=== PATIENT | female | born 1985 | race Caucasian/White ===

== ENCOUNTER 2021-04-08 15:12 | Outpatient (CLI) | payer OTHER, SELFPAY ==
--- NOTE | ~2021-04-08 | US_ITS ---
EXAMINATION: US thyroid DATE: 04/08/2021 15:34 INDICATION: Thyroid disorder. TECHNIQUE: Multiple ultrasound images of the thyroid were obtained. COMPARISON: Ultrasound 10/19/2017 FINDINGS: The right thyroid lobe measures 5.1 x 1.7 x 1.5 cm. The left thyroid lobe measures 4.7 x 1.6 x 1.4 c m. There is normal echotexture and echogenicity throughout the thyroid gland. No discrete nodules id entified. Normal vascular flow is present. IMPRESSION: 1. Normal thyroid. Reviewed, dictated and finalized at location A. IMPRESSION: 1. Normal thyroid.
== END 2021-04-08 15:13 | disposition home or self-care (01) ==
PROVIDERS: PCP Physician Assistant; Visit Provider Physician Assistant
DX: Z86.39 Personal history of other endocrine, nutritional and metabolic disease (principal)
CPT/HCPCS: 76536

== ENCOUNTER 2021-04-14 08:34 | Emergency (ER) | payer OTHER, SELFPAY ==
--- NOTE | ~2021-04-14 | CT_ITS ---
EXAMINATION: CT abdomen pelvis w con DATE: 04/14/2021 11:36 INDICATION: Right lower quadrant abdominal pain. TECHNIQUE: Computed tomography (CT) of the abdomen and pelvis was performed with 100 mL Omnipaque 350 intravenous contrast. Automated exposure control and iterative reconstruction technique were employe d. The dose-length product was 502.52 mGy-cm. COMPARISON: None. FINDINGS: The visualized portions of the lung bases are clear without pneumonia or pleural effusion. The heart size is normal. No pleural effusion. The liver, gallbladder, spleen, pancreas, adrenal glan ds, and left kidney are normal. There are cysts in right kidney measuring up to 5 mm. There is wall t hickening throughout the colon, consistent with colitis. The appendix is normal. There are no patholo gically enlarged lymph nodes. There is no free intraperitoneal fluid. There is mild thoracolumbar spo ndylosis. IMPRESSION: 1. Pancolitis. Reviewed, dictated and finalized at location A. IMPRESSION: 1. Pancolitis.
[2021-04-14 09:50] VITALS: BP 117/66; PULSE 95; RESP 14; TEMP 36.3; O2SAT 100
[2021-04-14 10:28] LABS: Basophils Percent Auto 0.3 % (0.2-1.2); Eosinophils Percent Auto 0.3 % (0-4.4); Hematocrit 39.1 % (37.0-47.0); Hemoglobin 12.7 g/dL (12.0-15.0); Immature Granulocyte Absolute 0.03 K/mm3 (0.00-0.031); Immature Granulocyte Percent A 0.3 % (0-0.5); Lymphocytes Absolute Auto 2.79 K/mm3 (0.9-3.2); Lymphocytes Percent Auto 24.2 % (18.3-44.2); Mean Corpuscular HGB Conc 32.5 g/dl (32-36); Mean Corpuscular Hemoglobin 27.9 pg (26-34); Mean Corpuscular Volume 85.9 fl (80-100); Mean Platelet Volume 9.6 fl (7.4-10.4); Monocytes Absolute Auto 0.7 K/mm3 (0.1-0.6); Monocytes Percent Auto 6.1 % (2.6-8.5); Neutrophils Absolute Auto 7.9 K/mm3 (1.3-6.7); Neutrophils Percent Auto 68.8 % (45.5-73.1); Platelet Count Result 472 k/mm3 (150-375); Red Blood Count 4.55 M/mm3 (4.2-5.4); Red Cell Distribution Width 13.1 % (11.5-14.5); White Blood Count 11.5 K/mm3 (4.5-10.0)
[2021-04-14 10:29] LABS: Add Urine Microscopic? YES; Appearance Urine Clear (Clear); Bilirubin Urine Negative (Negative); Blood Urine Negative (Negative); Color Urine Straw (Yellow); Glucose Urine UA Negative (Negative); Ketones Urine Trace mg/dL (Negative); Leukocyte Esterase Ur Negative LEU/UL (Negative); Mucus Urine Rare /lpf; Nitrate Urine Negative (Negative); Protein Urine Negative (Negative); RBC Urine 0-2 /hpf (0-2); Squamous Epithelial Cell Urine Rare /hpf (Few); Urobilinogen Urine Negative mg/dL (<2.0); WBC Urine 0-3 /hpf
[2021-04-14 10:39] LABS: Specific Grav Ur 1.003 (1.001-1.035)
[2021-04-14 10:46] LABS: Alanine Aminotransferase 16 U/L (4-35); Albumin Level 4.4 g/dL (3.5-5.1); Alkaline Phosphatase 64 U/L (38-126); Anion Gap 8 mmol/L (8-16); Aspartate Amino Transferase 17 U/L (14-36); Bilirubin,Total 0.4 mg/dL (0.2-1.3); Blood Urea Nitrogen 3 mg/dL (7-17); Calcium 9.4 mg/dL (8.4-10.2); Carbon Dioxide 28 mmol/L (22-30); Chloride 100 mmol/L (98-107); Estimated CRCL calculation 106 ml/min; Estimated Glomerular Filt Rate > 60; Glucose 87 mg/dL (65-110); Lipase 91 U/L (23-300); Potassium 3.5 mmol/L (3.4-5.0); Sodium 136 mmol/L (137-145)
[2021-04-14] MEDS: SODIUM CHLORIDE 0.9% IV 1,000 ML 999 ML IV CONT ×2 (12:05→13:12)
[2021-04-14] MEDS: ONDANSETRON INJ 4 MG/2 ML VIAL IV PUSH (12:05)
[2021-04-14] MEDS: fentaNYL CITRATE INJ (*CRX) 100 MCG/2 ML VIAL 50 MCG IV PUSH ×2 (12:05→13:12)
--- NOTE | 2021-04-14 12:36 | ED.ABDPAIN ---
HPI - Abdominal Pain General Chief Complaint: Abdominal Pain Stated Complaint: abd pain, ulcerative colitis Time Seen by Provider: 04/14/21 11:06 History of Present Illness HPI narrative: Patient presents with abdominal pain for the history of ulcerative colitis and occasionally will have flares however this episodes appears to be worse than her priors. Pains and present for the past several days. Described as a cramping sensation start around bellybutton and now is radiating to her right lower quadrant. She was concerned that she was having appendicitis and wanted to come in for evaluation. She reports nausea but no vomiting shortness pain when having to have bowel movements. She denies any urinary symptoms. Related Data Allergies Allergy/AdvReac Type Severity Reaction Status Date / Time No Known Allergies Allergy Verified 04/14/21 11:08 Review of Systems Review of Systems: CONSTITUTIONAL: Denies fever, chills, or sweats. EYES: Denies visual changes, redness, or discharge. ENT: Denies rhinorrhea, congestion, sore throat, or otalgia. CARDIOVASCULAR: Denies chest pain, palpitations, or edema. RESPIRATORY: Denies cough or dyspnea. GASTROINTESTINAL: Denies vomiting GENITOURINARY: Denies dysuria or hematuria. SKIN: Denies rash or itching. MUSCULOSKELETAL: Denies back pain, joint pain, or myalgia. NEUROLOGIC: Denies headache, numbness, dizziness, or weakness. PSYCHIATRIC: Denies anxiety or depression. All systems reviewed & are unremarkable except as noted in HPI and below PMFSH Social History Social History Gender identity (if verbalized by the patient): Female Exam Narrative: GENERAL: Well-appearing, well-nourished, and in no acute distress. HEAD: Normocephalic, atraumatic. EYES: PERRLA and EOMI. ENT: Nares clear, no rhinorrhea or epistaxis. Mucous membranes moist. NECK: Supple. No masses. No JVD CHEST: Clear to auscultation. No respiratory distress. No wheezes rales or rhonchi HEART: Regular rate and rhythm. No murmur heard. Normal peripheral pulses. ABDOMEN: Moderate tenderness in the lower abdomen no rebound or guarding, nondistended, normal active bowel sounds. EXTREMITIES: Normal range of motion. No edema. SKIN: Warm, dry, no rash. NEURO: No focal deficits. Alert and oriented x3. PSYCH: Normal mood and affect. Course Reevaluation(s) Reevaluation #1: pt feeling improved, labs and imaging reviewed with patient Date: 04/14/21 Time: 12:36 Vital Signs Vital signs: Vital Signs Temperature 36.3 C L 04/14/21 09:50 Pulse Rate 95 04/14/21 09:50 Respiratory Rate 14 04/14/21 09:50 Blood Pressure 117/66 04/14/21 09:50 Pulse Oximetry 100 04/14/21 09:50 Temperature 36.3 C L 04/14/21 09:50 Pulse Rate 84 04/14/21 14:27 Respiratory Rate 16 04/14/21 14:27 Blood Pressure 136/84 04/14/21 14:27 Pulse Oximetry 98 04/14/21 14:27 MDM - Abdominal Pain MDM Narrative Medical decision making narrative: Patient reports chronic abdominal pain however today's episode was different than her priors and she was concerned for appendicitis. Patient looks clinically well labs and imaging were ordered and notable for pancolitis and mild elevation in WBCs. There not appear to be evidence of fistulas, abscess, acute surgical process. Patient treated supportively in the ER with some relief of her symptoms. With a reassuring work-up and improvement in symptoms patient is appropriate for outpatient supportive therapies. She was offered steroids and narcotic therapies but declined as she has to take care of her kids and steroids has not helped her in the past. Recommend patient contact her GI doctor and she said she had a virtual appointment on Sunday for discuss further management options. Return precautions given Lab Data Result diagrams: 04/14/21 10:13 04/14/21 10:13 Labs: Lab Results 04/14/21 04/14/21 04/14/21 Range/Units 10:
--- NOTE | 2021-04-14 12:42 | PC.NURSE ---
called lab and talked to Sola elizabeth on a C reactive Prot and ESR at 1243
[2021-04-14 13:26] LABS: CRP 4.2 mg/dL (<1.0)
[2021-04-14 14:23] LABS: Erythrocyte Sedimentation Rate 28 mm/hr (0-20)
[2021-04-14 14:27] VITALS: BP 136/84; PULSE 84; RESP 16; O2SAT 98
== END 2021-04-14 14:28 | disposition home or self-care (01) ==
PROVIDERS: Emergency Medicine; Emergency Provider Emergency Medicine; PCP Physician Assistant
DX: K52.9 Noninfective gastroenteritis and colitis, unspecified (principal); Z87.19 Personal history of other diseases of the digestive system
CPT/HCPCS: 36415; 74177; 80053; 81001; 81025; 83690; 85025; 85652; 86140; 96361; 96374; 96375; 96376; 99284; J2405; J3010; J7030; Q9967

== ENCOUNTER 2021-04-26 12:34 | Outpatient (CLI) | payer OTHER, SELFPAY ==
[2021-04-30 00:19] LABS: NIL 0.01 IU/mL; Quantiferon TB Plus, 1T NEGATIVE (NEGATIVE); TB1-NIL 0.02 IU/mL; TB2-NIL 0.02 IU/mL
== END 2021-04-26 12:35 | disposition home or self-care (01) ==
PROVIDERS: PCP Physician Assistant; Visit Provider Nurse Practitioner Adult Health
DX: Z11.1 Encounter for screening for respiratory tuberculosis (principal)
CPT/HCPCS: 36415; 86480

== ENCOUNTER 2024-10-10 13:17 | Outpatient (CLI) | payer OTHER, SELFPAY ==
--- OUTSIDE RECORDS SUMMARY | 2024-10-10 13:28 | XMS_ITS | Data Portability ---
Author Organization CIELO Gayla LOPEZ Address [address] [place] [address] Assessment No assessment recorded. Plan of Treatment Reminders Order Date Submit Date Provider Last Modified By Organization Details Last Modified Time Details Appointments None recorded. Lab CMP, serum or plasma 2017 018 [facility] [address], [address], [place], [address], 8 16:20:23 inflammat ory bowel disease Ab panel, serum 2017 018 [facility], [address], [place], [address], 8 16:20:24 ferritin, serum or plasma 2017 018 [facility], [facility] sy[facility] [address], [address], [place], [address], 8 16:20:25 iron + total iron-bind ing capacity (TIBC), serum 2017 018 [facility], [facility] [address], [address], [place], [address], 8 16:20:24 CBC w/ auto diff 2017 018 [facility], [facility] [address], [address], [place], [address], 8 16:20:23 urinalysi s, dipstick 2018 019 [email or web address] In-Office Order, Internal Use Only DO Not Attach Compendium DO Not Attach Compendium, Do Not Delete/merge, [id number] 9 13:30:26 urinalysi s, complete 2018 019 EVER BLANKENSHIPWALESKA, Tana Mccormick, [address], [place], [address], 9 06:09:36 culture, urine 2018 019 EVER JAVIERMAYUR, Tana Mccormick, [address], [place], [address], 9 06:09:37 CMP, serum or plasma 2020 021 EVER BLANKENSHIPWALESKA, Tana Mccormick, [address], [place], [address], 08:19:51 C reactive protein, QN, serum or plasma 2020 021 EVER JAVIERMAYUR, Tana Mccormick, [address], [place], [address], 08:19:53 iron + total iron-bind ing capacity (TIBC), serum 2020 EVER JAVIERMAYUR, Tana Mccormick, [address], [place], [address], 08:19:52 ferritin, serum or plasma 2020 EVER BLANKENSHIPWALESKA, Tana Mccormick, [address], [place], [address], 08:19:53 CBC w/ auto diff 2020 [facility], [address] [facility], [address], [place], [address], 08:19:51 Referral gastroent erologist referral 2017 natasha Jett MD, [address] [facility], [place], [address], 9 12:29:50 gastroent erologist referral - Please contact patient to schedule an appointme nt, Thank you. Omayra Austin 2020 [facility], [address], [address], [place], [address], 16:50:25 general surgeon referral - Dr. Santos for colorecta l surgery consult 2020 [facility], [address], [address], [place], [address], 12:41:29 Procedures None recorded. Surgeries None recorded. Imaging None recorded. Medication Orders azithromy daniel 250 mg tablet 2017 018 [facility][id number], [address] [place] [address], [id number], 9 11:34:06 Medrol (Aaron) 4 mg tablets in a dose pack 2017 018 [facility] #[id number], [address] [facility] [address] [place] [address], [id number], 11:24:54 Levsin 0.125 mg tablet 2017 018 [facility] #55803, [address] [facility] [address] [place] [address], [id number], 9 11:35:10 Bactrim DS 800 mg-160 mg tablet 2018 019 [email or web address] [facility] #74959, [address], [id number], 9 11:22:45 cefdinir 300 mg capsule 2018 019 [facility] #03181, [address], [id number], 1 11:24:42 Medrol (Aaron) 4 mg tablets in a dose pack 2019 020 [facility] #65172, [address], [id number], 1 11:24:54 cefdinir 300 mg capsule 2019 020 [facility] #96396, [address], [id number], 1 11:24:42 Patient TargetsNo targets recorded. Patient InstructionsNo instructions recorded. Reason for Referral Wire Weaver Referral for Chronic diarrhea r/o IBD, chronic diarrhea, hematochezia Referring Physician: Arlyn Sanches [facility], Encounter Date: 04/23/2018 Wire Weaver Referral for Ulcerative colitis Please contact patient to schedule an appointment, Thank you. Omayra Austin Referring Physician: Arlyn Sanches [facility], Encounter Date: 06/06/2021 General Surgeon Referral for Ulcerative colitis Dr. Santos for colorectal surgery consult Referring Physician: Arlyn Sanches [facility], Encounter Date: 06/06/2021 Results Created Date Observation Date Name Description Value Unit Range Abnormal Flag Note LastModifiedBy Organization Detail LastModifiedTime 04/23/20 18 04/23/2018 CBC w/ auto diff WBC 7.0 x10e3 /uL 3.4-10 .8 Not Available [facility] ([facility] [place] [facility]) [address] [facility], [place], [address], 04/25/2018 16:20:23 04/23/20 18 04/23/2018 CBC w/ auto diff RBC 4.29 x10e6 /uL 3.77-5 .28 Not Available [facility] ([facility]) [address] [place], [address], 04/25/2018 16:20:23 04/23/20 18 04/23/2018 CBC w/ auto diff hemoglobin 9.5 g/dL 11.1-1 5.9 below low normal Not Available [facility] ([facility]) [address] [place], [address], 04/25/2018 16:20:23 04/23/20 18 04/23/2018 CBC w/ auto diff hematocrit 30.5 % 34.0-4 6.6 below low normal Not Available [facility] ([facility]) [address] [facility], [place], [address], 04/25/2018 16:20:23 04/23/20 18 04/23/2018 CBC w/ auto diff MCV 71 fL 79-97 below low normal Not Available [facility] ([facility]) [address] [place], [address], 04/25/2018 16:20:23 04/23/20 18 04/23/2018 CBC w/ auto diff MCH 22.1 pg 26.6-3 3.0 below low normal Not Available [facility] ([facility]) [address] [place], [address], 04/25/2018 16:20:23 04/23/20 18 04/23/2018 CBC w/ auto diff MCHC 31.1 g/dL 31.5-3 5.7 below low normal Not Available [facility] ([facility]) [address] [place], [address], 04/25/2018 16:20:23 04/23/20 18 04/23/2018 CBC w/ auto diff RDW 15.9 % 12.3-1 5.4 above high normal Not Available [facility] ([facility]) [address] [facility], [place], [address], 04/25/2018 16:20:23 04/23/20 18 04/23/2018 CBC w/ auto diff platelets 525 x10e3 /uL 150-37 9 above high normal Not Available [facility] ([facility]) [address] [facility], [place], [address], 04/25/2018 16:20:23 04/23/20 18 04/23/2018 CBC w/ auto diff neutrophils 60 % not estab. Not Available [facility] ([facility]) [address] [facility], [place], [address], 04/25/2018 16:20:23 04/23/20 18 04/23/2018 CBC w/ auto diff lymphs 31 % not estab. Not Available [facility] ([facility]) [address] [facility], [place], [address], 04/25/2018 16:20:23 04/23/20 18 04/23/2018 CBC w/ auto diff monocytes 8 % not estab. Not Available [facility] ([facility]) [address] [facility], [place], [address], 04/25/2018 16:20:23 04/23/20 18 04/23/2018 CBC w/ auto diff eos 1 % not estab. Not Available [facility] ([facility]) [address] [facility], [place], [address], 04/25/2018 16:20:23 04/23/20 18 04/23/2018 CBC w/ auto diff basos 0 % not estab. Not Available [facility] ([facility]) [address] [facility], [place], [address], 04/25/2018 16:20:23 04/23/20 18 04/23/2018 CBC w/ auto diff immature cells REGASIFICATION PLANT OPERATOR Not Available [facility] ([facility]) [address] [place], [address], 04/25/2018 16:20:23 04/23/20 18 04/23/2018 CBC w/ auto diff neutrophils (absolute) 4.2 x10e3 /uL 1.4-7. 0 Not Available [facility] ([facility]) [address] [place], [address], 04/25/2018 16:20:23 04/23/20 18 04/23/2018 CBC w/ auto diff lymphs (absolute) 2.1 x10e3 /uL 0.7-3. 1 Not Available [facility] ([facility]) [address] [place], [address], 04/25/2018 16:20:23 04/23/20 18 04/23/2018 CBC w/ auto diff monocytes(ab solute) 0.6 x10e3 /uL 0.1-0. 9 Not Available [facility] ([facility]) [address] [place], [address], 04/25/2018 16:20:23 04/23/20 18 04/23/2018 CBC w/ auto diff eos (absolute) 0.1 x10e3 /uL 0.0-0. 4 Not Available [facility] ([facility]) [address] [place], [address], 04/25/2018 16:20:23 04/23/20 18 04/23/2018 CBC w/ auto diff baso (absolute) 0.0 x10e3 /uL 0.0-0. 2 Not Available [facility] ([facility]) [address] [place], [address], 04/25/2018 16:20:23 04/23/20 18 04/23/2018 CBC w/ auto diff immature granulocytes 0 % not estab. Not Available [facility] ([facility]) [address] [place], [address], 04/25/2018 16:20:23 04/23/20 18 04/23/2018 CBC w/ auto diff immature grans (abs) 0.0 x10e3 /uL 0.0-0. 1 Not Available [facility] ([facility]) [address] [place], [address], 04/25/2018 16:20:23 04/23/20 18 04/23/2018 CBC w/ auto diff NRBC REGASIFICATION PLANT OPERATOR Not Available [facility] ([facility]) [address] [place], [address], 04/25/2018 16:20:23 04/23/20 18 04/23/2018 CBC w/ auto diff hematology comments: REGASIFICATION PLANT OPERATOR Not Available [facility] ([facility]) [address] [place], [address], 04/25/2018 16:20:23 04/23/20 18 04/24/2018 CMP, serum or plasm a glucose 87 mg/dL 65-99 Not Available [facility] ([facility]) [address] [place], [address], 04/25/2018 16:20:23 04/23/20 18 04/24/2018 CMP, serum or plasm a BUN 5 mg/dL 6-20 below low normal Not Available [facility] ([facility]) [address] [place], [address], 04/25/2018 16:20:23 04/23/20 18 04/24/2018 CMP, serum or plasm a creatinine 0.63 mg/dL 0.57-1 .00 Not Available [facility] ([facility]) [address] [place], [address], 04/25/2018 16:20:23 04/23/20 18 04/24/2018 CMP, serum or plasm a eGFR if nonafricn AM 119 mL/mi n/1.7 3 >59 Not Available [facility] ([facility]) [address] [place], [address], 04/25/2018 16:20:23 04/23/20 18 04/24/2018 CMP, serum or plasm a eGFR if africn AM 137 mL/mi n/1.7 3 >59 Not Available [facility] ([facility]) [address] [place], [address], 04/25/2018 16:20:23 04/23/20 18 04/24/2018 CMP, serum or plasm a BUN/creatini ne ratio 8 9-23 below low normal Not Available [facility] ([facility]) [address] [place], [address], 04/25/2018 16:20:23 04/23/20 18 04/24/2018 CMP, serum or plasm a sodium 138 mmol/ L 134-14 4 Not Available [facility] ([facility]) [address] [place], [address], 04/25/2018 16:20:23 04/23/20 18 04/24/2018 CMP, serum or plasm a potassium 4.2 mmol/ L 3.5-5. 2 Not Available [facility] ([facility]) [address] [place], [address], 04/25/2018 16:20:23 04/23/20 18 04/24/2018 CMP, serum or plasm a chloride 103 mmol/ L 96-106 Not Available [facility] ([facility]) [address] [place], [address], 04/25/2018 16:20:23 04/23/20 18 04/24/2018 CMP, serum or plasm a carbon dioxide, total 23 mmol/ L 20-29 Not Available [facility] ([facility]) [address] [place], [address], 04/25/2018 16:20:23 04/23/20 18 04/24/2018 CMP, serum or plasm a calcium 9.2 mg/dL 8.7-10 .2 Not Available [facility] ([facility]) [address] [place], [address], 04/25/2018 16:20:23 04/23/20 18 04/24/2018 CMP, serum or plasm a protein, total 7.3 g/dL 6.0-8. 5 Not Available [facility] ([facility]) [address] [place], [address], 04/25/2018 16:20:23 04/23/20 18 04/24/2018 CMP, serum or plasm a albumin 4.1 g/dL 3.5-5. 5 Not Available [facility] ([facility]) [address] [place], [address], 04/25/2018 16:20:23 04/23/20 18 04/24/2018 CMP, serum or plasm a globulin, total 3.2 g/dL 1.5-4. 5 Not Available [facility] ([facility]) [address] [place], [address], 04/25/2018 16:20:23 04/23/20 18 04/24/2018 CMP, serum or plasm a A/G ratio 1.3 1.2-2. 2 Not Available [facility] ([facility]) [address] [place], [address], 04/25/2018 16:20:23 04/23/20 18 04/24/2018 CMP, serum or plasm a bilirubin, total <0.2 mg/dL 0.0-1. 2 Not Available [facility] ([facility]) [address] [place], [address], 04/25/2018 16:20:23 04/23/20 18 04/24/2018 CMP, serum or plasm a alkaline phosphatase 101 IU/L 39-117 Not Available [facility] ([facility]) [address] [place], [address], 04/25/2018 16:20:23 04/23/20 18 04/24/2018 CMP, serum or plasm a AST (SGOT) 7 IU/L 0-40 Not Available [facility] ([facility]) [address] [place], [address], 04/25/2018 16:20:23 04/23/20 18 04/24/2018 CMP, serum or plasm a ALT (SGPT) 14 IU/L 0-32 Not Available [facility] ([facility]) [address] [place], [address], 04/25/2018 16:20:23 04/23/20 18 04/25/2018 infla mmato ry bowel disea se Ab panel , serum wendy 3 units 0-50 Negat ran <45 Equiv ocal 45 - 50 Posit ran >50 Not Available [facility] ([facility]) [address] [place], [address], 04/25/2018 16:20:24 04/23/20 18 04/25/2018 infla mmato ry bowel disea se Ab panel , serum acca 7 units 0-90 Negat ran <80 Equiv ocal 80 - 90 Posit ran >90 Not Available [facility] ([facility]) [address] [place], [address], 04/25/2018 16:20:24 04/23/20 18 04/25/2018 infla mmato ry bowel disea se Ab panel , serum alca 18 units 0-60 Negat ran <55 Equiv ocal 55 - 60 Posit ran >60 Not Available [facility] ([facility]) [address] [place], [address], 04/25/2018 16:20:24 04/23/20 18 04/25/2018 infla mmato ry bowel disea se Ab panel , serum amca 35 units 0-100 Negat ran < 90 Equiv ocal 90 - 100 Posit ran >100 This test was devel oped and its perfo rmanc e barby cteri stics deter mined by [facility]. It has not been clear ed or appro matias by the Food and Drug Admin istra tion. The FDA has deter mined that such clear ance or appro aleksandar is not geovanny vasquez. Not Available [facility] ([facility]) [address] [place], [address], 04/25/2018 16:20:24 04/23/20 18 04/25/2018 infla mmato ry bowel disea se Ab panel , serum atypical panca Negati ve negati ve Not Available [facility] ([facility]) [address] [place], [address], 04/25/2018 16:20:24 04/23/20 18 04/25/2018 infla mmato ry bowel disea se Ab panel , serum comments Comfort Bower rn is not sugge stive of Infla mmato ry Bowel Disea se Not Available [facility] ([facility]) [address] [facility], [place], [address], 04/25/2018 16:20:24 04/23/20 18 04/24/2018 iron + total iron- destin ng capac ity (TIBC ), serum iron bind.cap.(TI BC) 401 ug/dL 250-45 0 Not Available [facility] ([facility]) [address] [place], [address], 04/25/2018 16:20:24 04/23/20 18 04/24/2018 iron + total iron- destin ng capac ity (TIBC ), serum UIBC 385 ug/dL 131-42 5 Not Available [facility] ([facility]) [address] [place], [address], 04/25/2018 16:20:24 04/23/20 18 04/24/2018 iron + total iron- destin ng capac ity (TIBC ), serum iron 16 ug/dL 27-159 below low normal Not Available [facility] ([facility]) [address] [facility], [place], [address], 04/25/2018 16:20:24 04/23/20 18 04/24/2018 iron + total iron- destin ng capac ity (TIBC ), serum iron saturation 4 % 15-55 alert low Not Available [facility] ([facility]) [address] [facility], [place], [address], 04/25/2018 16:20:24 04/23/20 18 04/24/2018 senthil tin, serum or plasm a ferritin, serum 9 NG/mL 15-150 below low normal Not Available [facility] ([facility]) [address] [facility], [place], [address], 04/25/2018 16:20:25 05/08/20 18 05/08/2018 surgi miah patho logy study [facility] pathology Premi er Patho logy Depar tment of Patho logy [address] [facility] [place] [address] Phone : [phone] Fax: Patho logy Repor t Name: JAUN HARP, MANJU LOWE Speci men #: [id number] Age: [birth year] (Age: 33) Locat ion: [facility] OP Sex: F Proce dure Date: Hospi lala #: [id number] Date Recei matias: Date Repor leo: Provi sofiya: CRISTINA EN A SCHMI DT Posto perat ran Diagn osis: Desce nding colon polyp Gross Descr iptio n: The first speci men is recei matias in a forma patsy-f illed conta iner label ed with the patie nt's name, Manju harp, date of and duod enal biops ies and consi sts of two piece s of soft light medina tissu e rangi ng in size from 0.1 to 0.2 cm in great est dimen alberto. The speci men is submi tted entir samantha in a singl e casse tte label ed A. The secon d speci men is recei matias in a forma patsy-f illed conta iner label ed with the berenice nt's name, Manju harp, date of and rand om colon biops ies and consi sts of five piece s of soft light medina tissu e rangi ng in size from less than 0.1 to 0.2 cm in [facility] est [facility] alberto. The speci men is submi tted entir samantha in a singl e casse tte label ed B. The third speci men is recei matias in a forma patsy-f illed conta iner label ed with the patirosalina nt's name, Manju harp, date of and desc endin g colon polyp and consi sts of one piece of soft light medina tissu e measu ring 0.2 cm in [facility] est [facility] alberto. The speci men is submi tted entir samantha in a singl e casse tte label ed C. CK Micro scopi c Descr iptio n: Micro scopi c exami natio n is perfo rmed and the findi ngs suppo rt the above final diagn osis. FINAL PATHO LOGIC DIAGN OSIS: A. DUODE NUM; BIOPS IES: -SMAL L BOWEL MUCOS A WITHI N SONG L LIMIT S -PRES ERVED VILLO US ARCHI TECTU RE -NO INCRE ASED INTRA EPITH ELIAL LYMPH OCYTE S B. COLON ; RANDO M BIOPS IES: -COLO LOLA MUCOS A WITH PROMI NENT LYMPH OID AGGRE IBARRA C. COLON , DESCE NDING , POLYP ; BIOPS Y: -FRAG MENTS OF INFLA MMATO RY POLYP JUDY F HUGHE S Patho logis t ifh/ 18 El ectro nical ly Alexandrea d Out * Not Available [facility] ([facility]) [address] [facility], [place], [address], 05/09/2018 10:32:01 04/03/20 19 04/04/2019 urina lysis , compl ete specific gravity 1.016 1.005- 1.030 Not Available [facility] ([facility]) [address] [place], [address], 04/05/2019 06:09:36 04/03/2004/04/2019 urina lysis , compl ete pH 5.5 5.0-7. 5 Not Available [facility] ([facility]) [address] [facility], [place], [address], 04/05/2019 06:09:36 04/03/2004/04/2019 urina lysis , compl ete urine-color Yellow yellow Not Available [facility] ([facility]) [address] [place], [address], 04/05/2019 06:09:36 04/03/2004/04/2019 urina lysis , compl ete appearance Clear clear Not Available [facility] ([facility]) [address] [place], [address], 04/05/2019 06:09:36 04/03/2004/04/2019 urina lysis , compl ete WBC esterase Negati ve negati ve Not Available [facility] ([facility]) [address] [place], [address], 04/05/2019 06:09:36 04/03/2004/04/2019 urina lysis , compl ete protein Negati ve negati ve/tra ce Not Available [facility] ([facility]) [address] [place], [address], 04/05/2019 06:09:36 04/03/2004/04/2019 urina lysis , compl ete glucose Negati ve negati ve Not Available [facility] ([facility]) [address] [place], [address], 04/05/2019 06:09:36 04/03/2004/04/2019 urina lysis , compl ete ketones Negati ve negati ve Not Available [facility] ([facility]) [address] [place], [address], 04/05/2019 06:09:36 04/03/2004/04/2019 urina lysis , compl ete occult blood Trace negati ve abnormal Not Available [facility] ([facility]) [address] [place], [address], 04/05/2019 06:09:36 04/03/2004/04/2019 urina lysis , compl ete bilirubin Negati ve negati ve Not Available [facility] ([facility]) [address] [place], [address], 04/05/2019 06:09:36 04/03/2004/04/2019 urina lysis , compl ete urobilinogen ,semi-qn 0.2 mg/dL 0.2-1. 0 Not Available [facility] ([facility]) [address] [place], [address], 04/05/2019 06:09:36 04/03/2004/04/2019 urina lysis , compl ete nitrite, urine Negati ve negati ve Not Available [facility] ([facility]) [address] [place], [address], 04/05/2019 06:09:36 04/03/2004/04/2019 urina lysis , compl ete microscopic examination See below: Micro scopi c was indic ated and was perfo rmed. Not Available [facility] ([facility]) [address] [place], [address], 04/05/2019 06:09:36 04/03/2004/04/2019 urina lysis , compl ete WBC 0-5 /hpf 0 - 5 Not Available [facility] ([facility]) [address] [place], [address], 04/05/2019 06:09:36 04/03/2004/04/2019 urina lysis , compl ete RBC 0-2 /hpf 0 - 2 Not Available [facility] ([facility]) [address], [place], [address], 04/05/2019 06:09:36 04/03/2004/04/2019 urina lysis , compl ete epithelial cells (non renal) 0-10 /hpf 0 - 10 Not Available [facility] ([facility]) [address] [facility], [place], [address], 04/05/2019 06:09:36 04/03/2004/04/2019 urina lysis , compl ete epithelial cells (renal) REGASIFICATION PLANT OPERATOR Not Available [facility] ([facility]) [address] [facility], [place], [address], 04/05/2019 06:09:36 04/03/2004/04/2019 urina lysis , compl ete casts Presen t /lpf none seen abnormal Not Available [facility] ([facility]) [address] [facility], [place], [address], 04/05/2019 06:09:36 04/03/2004/04/2019 urina lysis , compl ete cast type Hyalin e casts n/a Not Available [facility] ([facility]) [address] [facility], [place], [address], 04/05/2019 06:09:36 04/03/2004/04/2019 urina lysis , compl ete crystals REGASIFICATION PLANT OPERATOR Not Available [facility] ([facility]) [address] [place], [address], 04/05/2019 06:09:36 04/03/2004/04/2019 urina lysis , compl ete crystal type REGASIFICATION PLANT OPERATOR Not Available [facility] ([facility]) [address] [facility], [place], [address], 04/05/2019 06:09:36 04/03/20 19 04/04/2019 urina lysis , compl ete mucus threads Presen t not estab. Not Available [facility] ([facility]) [address] [facility], [place], [address], 04/05/2019 06:09:36 04/03/20 19 04/04/2019 urina lysis , compl ete bacteria Few none seen/f ew Not Available [facility] ([facility]) [address] [facility], [place], [address], 04/05/2019 06:09:36 04/03/20 19 04/04/2019 urina lysis , compl ete yeast REGASIFICATION PLANT OPERATOR Not Available [facility] ([facility]) [address] [facility], [place], [address], 04/05/2019 06:09:36 04/03/20 19 04/04/2019 urina lysis , compl ete trichomonas REGASIFICATION PLANT OPERATOR Not Available [facility] ([facility]) [address] [facility], [place], [address], 04/05/2019 06:09:36 04/03/2004/04/2019 urina lysis , compl ete comment REGASIFICATION PLANT OPERATOR Not Available [facility] [facility] [address] [facility], [place], [address], 04/05/2019 06:09:36 04/03/2004/04/2019 urina lysis , compl ete microscopic examination REGASIFICATION PLANT OPERATOR Not Available [facility] ([facility]) [address] [facility], [place], [address], 04/05/2019 06:09:36 04/03/2004/04/2019 cultu re, urine urine culture, routine Final report Not Available [facility] ([facility]) [address] [facility], [place], [address], 04/05/2019 06:09:37 04/03/20 19 04/04/2019 cultu re, urine result 1 Commen t Cultu re shows less than 10,00 0 colon y formi ng units of bacte marce per danie liter of urine . This colon y count is not gener ally consi dered to be clini david lesliei dequan russo Not Available [facility] ([facility]) [address] [facility], [place], [address], 04/05/2019 06:09:37 04/03/2004/03/2019 urina lysis , dipst ick Leukocytes Negati ve Not Available In-Office Order Internal Use Only DO Not Attach Compendium DO Not Attach Compendium, Do Not Delete/merge, [id number] 04/03/2019 11:49:32 04/03/2004/03/2019 urina lysis , dipst ick Nitrite negati ve Not Available In-Office Order Internal Use Only DO Not Attach Compendium DO Not Attach Compendium, Do Not Delete/merge, 04/03/2019 11:49:32 04/03/2004/03/2019 urina lysis , dipst ick Urobilinogen .2 Not Available In-Of fice Order Internal Use Only DO Not Attach Compendium DO Not Attach Compendium, Do Not Delete/merge, [id number] 04/03/2019 11:49:32 04/03/2004/03/2019 urina lysis , dipst ick Protein Negati ve Not Available In-Office Order Internal Use Only DO Not Attach Compendium DO Not Attach Compendium, Do Not Delete/merge, [id number] 04/03/2019 11:49:32 04/03/2004/03/2019 urina lysis , dipst ick pH 6.5 Not Available In-Office Order Internal Use Only DO Not Attach Compendium DO Not Attach Compendium, Do Not Delete/merge, [id number] 04/03/2019 11:49:32 04/03/2004/03/2019 urina lysis , dipst ick Blood Hemoly zed: Trace Not Available In-Office Order Internal Use Only DO Not Attach Compendium DO Not Attach Compendium, Do Not Delete/merge, [id number] 04/03/2019 11:49:32 04/03/2004/03/2019 urina lysis , dipst ick Specific [place] 1.025 Not Available In-Off ice Order Internal Use Only DO Not Attach Compendium DO Not Attach Compendium, Do Not Delete/merge, [id number] 04/03/2019 11:49:32 04/03/2004/03/2019 urina lysis , dipst ick Ketone Negati ve Not Available In-Office Order Internal Use Only DO Not Attach Compendium DO Not Attach Compendium, Do Not Delete/merge, [id number] 04/03/2019 11:49:32 04/03/2004/03/2019 urina lysis , dipst ick Bilirubin Negati ve Not Available In-Office Order Internal Use Only DO Not Attach Compendium DO Not Attach Compendium, Do Not Delete/merge, 04/03/2019 11:49:32 04/03/2004/03/2019 urina lysis , dipst ick Glucose Negati ve Not Available In-Office Order Internal Use Only DO Not Attach Compendium DO Not Attach Compendium, Do Not Delete/merge, [id number] 04/03/2019 11:49:32 04/03/2004/03/2019 urina lysis , dipst ick Appearance Clear Not Available In-Offi ce Order Internal Use Only DO Not Attach Compendium DO Not Attach Compendium, Do Not Delete/merge, 04/03/2019 11:49:32 04/03/2004/03/2019 urina lysis , dipst ick Color Yellow Not Available In-Office Order Internal Use Only DO Not Attach Compendium DO Not Attach Compendium, Do Not Delete/merge, [id number] 04/03/2019 11:49:32 04/18/2004/19/2021 TSH REFLE X TO T4F TSH 1.450 uIU/m L 0.450- 4.500 normal Not Available [facility] ([facility]) [address] [facility], [place], [address], 04/19/2021 08:18:23 04/18/2004/19/2021 THYRO ID PEROX IDASE (TPO) AB thyroid peroxidase (tpo) Ab 17 IU/mL 0-34 normal Not Available [facility] ([facility]) [address] [facility], [place], [address], 04/19/2021 08:18:24 06/06/20 21 06/07/2021 CBC WITH DIFFE RENTI AL/PL ATELE T WBC 7.2 x10e3 /uL 3.4-10 .8 Not Available [facility] ([facility]) [address] [facility], [place], [address], 06/07/2021 08:19:51 06/06/20 21 06/07/2021 CBC WITH DIFFE RENTI AL/PL ATELE T RBC 4.06 x10e6 /uL 3.77-5 .28 Not Available [facility] ([facility]) [address] [place], [address], 06/07/2021 08:19:51 06/06/20 21 06/07/2021 CBC WITH DIFFE RENTI AL/PL ATELE T hemoglobin 11.2 g/dL 11.1-1 5.9 Not Available [facility] ([facility]) [address] [place], [address], 06/07/2021 08:19:51 06/06/2006/07/2021 CBC WITH DIFFE RENTI AL/PL ATELE T hematocrit 34.7 % 34.0-4 6.6 Not Available [facility] ([facility]) [address] [place], [address], 06/07/2021 08:19:51 06/06/20 21 06/07/2021 CBC WITH DIFFE RENTI AL/PL ATELE T MCV 86 fL 79-97 Not Available [facility] ([facility]) [address] [place], [address], 06/07/2021 08:19:51 06/06/20 21 06/07/2021 CBC WITH DIFFE RENTI AL/PL ATELE T MCH 27.6 pg 26.6-3 3.0 Not Available [facility] ([facility]) [address] [place], [address], 06/07/2021 08:19:51 06/06/20 21 06/07/2021 CBC WITH DIFFE RENTI AL/PL ATELE T MCHC 32.3 g/dL 31.5-3 5.7 Not Available [facility] ([facility]) [address] [facility], [place], [address], 06/07/2021 08:19:51 06/06/20 21 06/07/2021 CBC WITH DIFFE RENTI AL/PL ATELE T RDW 13.2 % 11.7-1 5.4 Not Available [facility] ([facility]) [address] [facility], [place], [address], 06/07/2021 08:19:51 06/06/20 21 06/07/2021 CBC WITH DIFFE RENTI AL/PL ATELE T platelets 649 x10e3 /uL 150-45 0 above high normal Not Available [facility] ([facility]) [address] [facility], [place], [address], 06/07/2021 08:19:51 06/06/20 21 06/07/2021 CBC WITH DIFFE RENTI AL/PL ATELE T neutrophils 37 % not estab. Not Available [facility] ([facility]) [address] [facility], [place], [address], 06/07/2021 08:19:51 06/06/20 21 06/07/2021 CBC WITH DIFFE RENTI AL/PL ATELE T lymphs 44 % not estab. Not Available [facility] ([facility]) [address] [place], [address], 06/07/2021 08:19:51 06/06/20 21 06/07/2021 CBC WITH DIFFE RENTI AL/PL ATELE T monocytes 16 % not estab. Not Available [facility] ([facility]) [address] [facility], [place], [address], 06/07/2021 08:19:51 06/06/20 21 06/07/2021 CBC WITH DIFFE RENTI AL/PL ATELE T eos 2 % not estab. Not Available [facility] ([facility]) [address] [place], [address], 06/07/2021 08:19:51 06/06/20 21 06/07/2021 CBC WITH DIFFE RENTI AL/PL ATELE T basos 1 % not estab. Not Available [facility] ([facility]) [address] [facility], [place], [address], 06/07/2021 08:19:51 06/06/20 21 06/07/2021 CBC WITH DIFFE RENTI AL/PL ATELE T immature cells REG[employer]ICATION [employer]ANT OPERATOR Not Available [facility] ([facility]) [address] [place], [address], 06/07/2021 08:19:51 06/06/2006/07/2021 CBC WITH DIFFE RENTI AL/PL ATELE T neutrophils (absolute) 2.7 x10e3 /uL 1.4-7. 0 Not Available [facility] ([facility]) [address] [place], [address], 06/07/2021 08:19:51 06/06/20 21 06/07/2021 CBC WITH DIFFE RENTI AL/PL ATELE T lymphs (absolute) 3.1 x10e3 /uL 0.7-3. 1 Not Available [facility] ([facility]) [address] [place], [address], 06/07/2021 08:19:51 06/06/20 21 06/07/2021 CBC WITH DIFFE RENTI AL/PL ATELE T monocytes(ab solute) 1.2 x10e3 /uL 0.1-0. 9 above high normal Not Available [facility] ([facility]) [address] [place], [address], 06/07/2021 08:19:51 06/06/20 21 06/07/2021 CBC WITH DIFFE RENTI AL/PL ATELE T eos (absolute) 0.2 x10e3 /uL 0.0-0. 4 Not Available [facility] ([facility]) [address] [facility], [place], [address], 06/07/2021 08:19:51 06/06/20 21 06/07/2021 CBC WITH DIFFE RENTI AL/PL ATELE T baso (absolute) 0.1 x10e3 /uL 0.0-0. 2 Not Available [facility] ([facility]) [address] [facility], [place], [address], 06/07/2021 08:19:51 06/06/20 21 06/07/2021 CBC WITH DIFFE RENTI AL/PL ATELE T immature granulocytes 0 % not estab. Not Available [facility] ([facility]) [address] [facility], [place], [address], 06/07/2021 08:19:51 06/06/20 21 06/07/2021 CBC WITH DIFFE RENTI AL/PL ATELE T immature grans (abs) 0.0 x10e3 /uL 0.0-0. 1 Not Available [facility] ([facility]) [address] [facility], [place], [address], 06/07/2021 08:19:51 06/06/20 21 06/07/2021 CBC WITH DIFFE RENTI AL/PL ATELE T NRBC REG[employer]IFICATION PLANT OPERATOR Not Available [facility] ([facility]) [address] [facility], [place], [address], 06/07/2021 08:19:51 06/06/20 21 06/07/2021 CBC WITH DIFFE RENTI AL/PL ATELE T hematology comments: REGASIFICATION PLANT OPERATOR Not Available [facility] ([facility]) [address] [facility], [place], [address], 06/07/2021 08:19:51 06/06/20 21 06/07/2021 COMP. METAB OLIC PANEL (14) glucose 119 mg/dL 65-99 above high normal Not Available [facility] ([facility]) [address] [facility], [place], [address], 06/07/2021 08:19:51 06/06/20 21 06/07/2021 COMP. METAB OLIC PANEL (14) BUN 7 mg/dL 6-20 Not Available [facility] ([facility]) [address] [facility], [place], [address], 06/07/2021 08:19:51 06/06/20 21 06/07/2021 COMP. METAB OLIC PANEL (14) creatinine 0.68 mg/dL 0.57-1 .00 Not Available [facility] ([facility]) [address] [facility], [place], [address], 06/07/2021 08:19:51 06/06/20 21 06/07/2021 COMP. METAB OLIC PANEL (14) eGFR if nonafricn AM 114 mL/mi n/1.7 3 >59 Not Available [facility] ([facility]) [address] [facility], [place], [address], 06/07/2021 08:19:51 06/06/20 21 06/07/2021 COMP. METAB OLIC PANEL (14) eGFR if africn AM 131 mL/mi n/1.7 3 >59 [facility] curre ntly repor ts eGFR in compl iance with the curre nt recom menda tions of the [employer] [facility] ation . [facility] will updat e repor ting as new guide lines are publi shed from the NKF-A SN Task force . Not Available [facility] ([facility]) [address] [facility], [place], [address], 06/07/2021 08:19:51 06/06/20 21 06/07/2021 COMP. METAB OLIC PANEL (14) BUN/creatini ne ratio 10 9-23 Not Available [facility] ([facility]) [address] [place], [address], 06/07/2021 08:19:51 06/06/20 21 06/07/2021 COMP. METAB OLIC PANEL (14) sodium 138 mmol/ L 134-14 4 Not Available [facility] ([facility]) [address] [place], [address], 06/07/2021 08:19:51 06/06/20 21 06/07/2021 COMP. METAB OLIC PANEL (14) potassium 4.5 mmol/ L 3.5-5. 2 Not Available [facility] ([facility]) [address] [place], [address], 06/07/2021 08:19:51 06/06/20 21 06/07/2021 COMP. METAB OLIC PANEL (14) chloride 102 mmol/ L 96-106 Not Available [facility] ([facility]) [address] [place], [address], 06/07/2021 08:19:51 06/06/20 21 06/07/2021 COMP. METAB OLIC PANEL (14) carbon dioxide, total 25 mmol/ L 20-29 Not Available [facility] ([facility]) [address] [place], [address], 06/07/2021 08:19:51 06/06/20 21 06/07/2021 COMP. METAB OLIC PANEL (14) calcium 8.7 mg/dL 8.7-10 .2 Not Available [facility] ([facility]) [address] [place], [address], 06/07/2021 08:19:51 06/06/20 21 06/07/2021 COMP. METAB OLIC PANEL (14) protein, total 5.9 g/dL 6.0-8. 5 below low normal Not Available [facility] ([facility]) [address], [place], [address], 06/07/2021 08:19:51 06/06/2006/07/2021 COMP. METAB OLIC PANEL (14) albumin 3.2 g/dL 3.8-4. 8 below low normal Not Available [facility] ([facility]) [address], [place], [address], 06/07/2021 08:19:51 06/06/20 21 06/07/2021 COMP. METAB OLIC PANEL (14) globulin, total 2.7 g/dL 1.5-4. 5 Not Available [facility] ([facility]) [address] [facility], [place], [address], 06/07/2021 08:19:51 06/06/20 21 06/07/2021 COMP. METAB OLIC PANEL (14) A/G ratio 1.2 1.2-2. 2 Not Available [facility] ([facility]) [address] [facility], [place], [address], 06/07/2021 08:19:51 06/06/2006/07/2021 COMP. METAB OLIC PANEL (14) bilirubin, total <0.2 mg/dL 0.0-1. 2 Not Available [facility] ([facility]) [address] [facility], [place], [address], 06/07/2021 08:19:51 06/06/20 21 06/07/2021 COMP. METAB OLIC PANEL (14) alkaline phosphatase 56 IU/L 44-121 Ple ase note refer ence inter aleksandar villavicencio e Not Available [facility] ([facility]) [address] [place], [address], 06/07/2021 08:19:51 06/06/20 21 06/07/2021 COMP. METAB OLIC PANEL (14) AST (SGOT) 6 IU/L 0-40 Not Available [facility] ([facility]) [address] [place], [address], 06/07/2021 08:19:51 06/06/2006/07/2021 COMP. METAB OLIC PANEL (14) ALT (SGPT) 8 IU/L 0-32 Not Available [facility] ([facility]) [address] [facility], [place], [address], 06/07/2021 08:19:51 06/06/20 21 06/07/2021 IRON AND TIBC iron bind.cap.(TI BC) 158 ug/dL 250-45 0 below low normal Not Available [facility] ([facility]) [address] [place], [address], 06/07/2021 08:19:52 06/06/20 21 06/07/2021 IRON AND TIBC UIBC 123 ug/dL 131-42 5 below low normal Not Available [facility] ([facility]) [address] [place], [address], 06/07/2021 08:19:52 06/06/2006/07/2021 IRON AND TIBC iron 35 ug/dL 27-159 Not Available [facility] ([facility]) [address] [facility], [place], [address], 06/07/2021 08:19:52 06/06/2006/07/2021 IRON AND TIBC iron saturation 22 % 15-55 Not Available [facility] ([facility]) [address] [place], [address], 06/07/2021 08:19:52 06/06/2006/07/2021 SENTHIL TIN ferritin 738 NG/mL 15-150 above high normal Not Available [facility] ([facility]) [address] [place], [address], 06/07/2021 08:19:52 06/06/20 21 06/07/2021 C-SALLY CTIVE PROTE IN, QUANT C-reactive protein, quant 44 mg/L 0-10 above high normal Not Available [facility] ([facility]) [address] [facility], [place], [address], 06/07/2021 08:19:53 Result Notes None recorded. Problems Name Problem SNOMED Code Status Onset Date Resolution Date Notes Provider Name and Address Organization Details Recorded Time Ulcerati ve colitis 52817960 Active 2018 NIC Kenney Attn: Accounting ,[address], [place], [address] , [place] - [facility] 9 17:28:37 Iron deficien cy 37653873 Active 2018 NIC Kenney Attn: Accounting ,[address], [place], [place], [address] [place] [address] , [place] - [facility] 9 12:32:15 Irritabl e bowel syndrome 02217771 Completed 201212/05/2018 Location : None;Sev erity: Moderate ;Progres s: Stable;A dded By: Renetta Linder;Add to Current Problems : NO NIC Kenney Attn: Accounting ,[address], [place], [place], [address] [place] [address] , [facility] - [facility] 9 17:28:24 Acute tonsilli tis 27335395 Completed 201310/06/2013 Location : None;Sev erity: Moderate ;Progres s: Stable;A dded By: Renetta Linder;Add to Current Problems : NO Not Available [facility] 7 11:48:38 Pregnanc y [id number] Completed 201312/05/2018 Location : None;Sev erity: Moderate ;Progres s: Stable;A dded By: Renetta Linder;Add to Current Problems : NO NIC Kenney Attn: Accounting ,[address], [place], [place], [address] [place] [address] , [place] - [facility] 9 17:28:26 Acute sinusiti s 50911448 Completed 201310/06/2013 Location : None;Sev erity: Moderate ;Progres s: Stable;A dded By: Megan Medrano i;Randal dd to Current Problems : NO Not Available [facility] 7 11:48:38 Urinary tract infectio us disease 89769812 Completed 201211/01/2012 Location : None;Sev erity: Moderate ;Progres s: Stable;A dded By: Yajaira Friedman;Add to Current Problems : NO Not Available [facility] 7 11:48:38 Acute sinusiti s 91628543 Completed 201411/30/2014 Location : None;Sev erity: Moderate ;Progres s: Stable;A dded By: Cathy Matson;Add to Current Problems : YES Not Available [facility] 7 11:48:38 Cellulit is [id number] Completed 201107/20/2012 Location : None;Sev erity: Moderate ;Progres s: Stable;A dded By: Arlyn Sanches;Add to Current Problems : NO Not Available [facility] 7 11:48:38 Female genital organ symptoms [id number] Completed 201411/30/2014 Location : None;Sev erity: Moderate ;Progres s: Stable;A dded By: Arlyn Sanches;Add to Current Problems : YES Not Available [facility] 7 11:48:39 Acute upper respirat ory infectio n of multiple sites Completed 201505/08/2016 Location : None;Sev erity: Moderate ;Progres s: Stable;A dded By: Arlyn Sanchse;Add to Current Problems : NO Not Available [facility] 7 11:48:39 Pilonida l cyst 68872092 Active 2011 Location : None;Sev erity: Moderate ;Progres s: Stable;A dded By: Nadia Hurley;Kishor d to Current Problems : YES Not Available [facility] 7 11:48:39 Acute sinusiti s 25164063 Completed 201309/18/2014 Location : None;Sev erity: Moderate ;Progres s: Stable;A dded By: Yang Hurley d to Current Problems : NO Not Available [facility] 11:48:39 Pilonida l cyst 33346231 Completed 201302/22/2014 Location : None;Sev erity: Moderate ;Progres s: Stable;A dded By: Megan Medrano i;Randal dd to Current Problems : NO Not Available [facility] 11:48:39 Acute pharyngi tis 023830268 Completed 201212/29/2012 Location : None;Sev erity: Moderate ;Progres s: Stable;A dded By: Lauren Tyler; Add to Current Problems : NO Not Available [facility] 11:48:39 Acute sinusiti s 52669292 Completed 201212/29/2012 Location : None;Sev erity: Moderate ;Progres s: Stable;A dded By: Phyllis Fuentes;Add to Current Problems : NO Not Available [facility] 11:48:39 Acute cystitis 81353090 Completed 201204/24/2013 Location : None;Sev erity: Moderate ;Progres s: Stable;A dded By: Helena Wilde; Add to Current Problems : NO Not Available [facility] 11:48:39 Dysuria 11321556 Completed 201204/24/2013 Location : None;Sev erity: Moderate ;Progres s: Stable;A dded By: Helena Wilde; Add to Current Problems : NO Not Available [facility] 11:48:39 Problem Notes None recorded. Procedures Surgical History Date Name Laterality Status Provider Name and Address Organization Details Recorded Time 11/02/19 19 Endometrial cryoablation completed Hair Denise [place] - [facility] 04/03/2019 11:37:11 Imaging Results None recorded. Procedure Notes None recorded. Medical Equipment None Reported. Allergies Allergen ID Allergen Name Allergen Category Reaction Reaction Severity Criticality Documentation Date Start Date Code Code System Note Provider Name and Address Organization Details Recorded Time 14732 honey bee venom environme nt Not available Not available Not available 09/06/20162011 27873 7 RxNorm Sever ity: Moder ate; Comme nt: Aller gy Type: Aller gy; Not Available Not Available Not Available Medications Name Sig Start Date Stop Date Status Note LastModified by Organization Details LastModified Time compound drug active Not Available Not Available Not Available amoxicilli n 500 mg capsule Take 1 capsule(s ) by mouth q8h for 10 days 01/11 completed RxNorm : 803951 ;Allow Substi tution : True Not Available Not Available Not Available dicloxacil patsy 500 mg capsule Take 1 capsule every 6 hours by oral route for 10 days. 10/15 completed Not Available Not Available Not Available Levsin 0.125 mg tablet Take 1 tablet every 4 hours by oral route as needed. 04/03 completed Not Available Not Available Not Available prednisone 10 mg tablet 04/03 completed Not Available Not Available Not Available clindamyci n HCl 300 mg capsule Take 1 capsule(s ) by mouth q6h Take with a full glass of water or with food 10/15 completed Not Available Not Available Not Available cetirizine 10 mg tablet 04/03 completed Not Available Not Available Not Available azithromyc in 250 mg tablet Take 2 tablet(s) by mouth on day 1 then 1 tablet every day for the next 4 days. 04/03 completed Not Available Not Available Not Available fluconazol e 150 mg tablet 04/03 completed Not Available Not Available Not Available ondansetro n HCl 8 mg tablet 10/15 completed Not Available Not Available Not Available Tamiflu 75 mg capsule Take 1 capsule twice a day by oral route. 10/15 completed Not Available Not Available Not Available sulfametho xazole 800 mg-trimeth oprim 160 mg tablet Take 1 tab twice daily with food x 7 days 05/01 completed Not Available Not Available Not Available peg-electr olyte solution 420 gram oral solution 04/03 completed Not Available Not Available Not Available amoxicilli n 500 mg tablet Take 1 tablet po q 8 hours for 7 days 05/26 completed RxNorm : 768388 ;Allow Substi tution : True Not Available Not Available Not Available amoxicilli n 875 mg tablet Take 1 tablet po bid with food for 7 days 04/03 completed Not Available Not Available Not Available sulfacetam jayme sodium 10 % eye drops 10/15 completed Not Available Not Available Not Available benzonatat e 100 mg capsule 04/03 completed Not Available Not Available Not Available Cipro 500 mg tablet Take 1 tablet(s) by mouth q12h for 10 days 11/10 completed RxNorm : 898145 ;Allow Substi tution : True Not Available Not Available Not Available budesonide DR - ER 3 mg capsule,de layed,exte nded release 04/03 completed Not Available Not Available Not Available methylpred nisolone 4 mg tablets in a dose pack FOLLOW PACKAGE DIRECTION S 06/06 completed Not Available Not Available Not Available ondansetro n 4 mg disintegra ting tablet DISSOLVE 1 TABLET ON THE TONGUE EVERY 8 HOURS NEEDED FOR NAUSEA OR VOMITING 06/06 completed Not Available Not Available Not Available cefdinir 300 mg capsule TAKE 1 CAPSULE BY MOUTH TWICE DAILY 06/06 completed Not Available Not Available Not Available dicyclomin e 10 mg capsule TAKE 1 CAPSULE BY MOUTH THREE TIMES DAILY 06/06 completed Not Available Not Available Not Available amoxicilli n 875 mg-potassi um clavulanat e 125 mg tablet Take 1 tablet(s) by mouth q12h for 10 days 10/15 completed Not Available Not Available Not Available Rx 60 mg iron-1 mg tablet Take 1 tablet(s) by mouth daily 10/15 completed Allow Substi tution : True Not Available Not Available Not Available azithromyc in 500 mg tablet 10/15 completed Not Available Not Available Not Available Chewable Chew 1 tablet(s) by mouth daily 01/22 completed Allow Substi tution : True Not Available Not Available Not Available mesalamine 1.2 gram tablet,del ayed release 04/03 completed Not Available Not Available Not Available mesalamine 800 mg tablet,del ayed release 04/02 completed Not Available Not Available Not Available Stelara 90 mg/mL subcutaneo us syringe active Not Available Not Available N ot Available Xeljanz 5 mg tablet Take 1 tablet every day by oral route. active Not Available Not Available No t Available Diclegis 10 mg-10 mg tablet,del ayed release 10/15 completed Not Available Not Available Not Available Entyvio 300 mg intravenou s solution Inject every month by intraveno us route. active Not Available Not Available No t Available Flonase Allergy Relief active Not Available Not Available Not Available Vitals Date Recorded Body height Body mass index (BMI) Body weight Oxygen saturation Oxygen saturation in Arterial blood by Pulse oximetry Heart rate Body temperature Systolic blood pressure Diastolic blood pressure Provider Name and Address Organization Details Last Updated DateTime 8 170.18 cm 29.3 kg/m2 32592.7 7 g 99 % 99 % 83 /min 98.3 [degF] 110 mm[Hg] 70 mm[Hg] Samantha Bond MA [facility] 8 11:45:16 Date Recorded Body height Body mass index (BMI) Body weight Oxygen saturation Oxygen saturation in Arterial blood by Pulse oximetry Heart rate Body temperature Systolic blood pressure Diastolic blood pressure Provider Name and Address Organization Details Last Updated DateTime 9 170.18 cm 25.7 kg/m2 27218.5 g 99 % 99 % 73 /min 98.7 [degF] 110 mm[Hg] 62 mm[Hg] Hair Denise MA [facility] 9 11:33:48 Date Recorded Body height Body mass index (BMI) Body weight Body temperature Oxygen saturation Oxygen saturation in Arterial blood by Pulse oximetry Heart rate Systolic blood pressure Diastolic blood pressure Provider Name and Address Organization Details Last Updated DateTime 9 170.18 cm 25.7 kg/m2 07612.1 5 g 98.5 [degF] 98 % 98 % 83 /min 115 mm[Hg] 75 mm[Hg] Linda Araiza [facility] 9 11:21:25 Social History Question Answer Notes LastModified by Organizat ion Details LastModified Time Tobacco Smoking Status Never Smoker Zofia hope [facility] 10/15/2017 11:10:03 Do You Have An Advance Directive? No Information not available 06/06/2021 What Is Your Level Of Alcohol Consumption? Occasional Information not available 06/06/2021 Are You Blind Or Do You Have Difficulty Seeing? No Information not available 06/06/2021 What Is Your Level Of Caffeine Consumption? None Information not available 06/06/2021 Are You Currently Employed? Yes Information not available 06/06/2021 Are You Deaf Or Do You Have Serious Difficulty Hearing? No Information not available 06/06/2021 What Type Of Diet Are You Following? REGULAR Information not available 06/06/2021 What Was The Date Of Your Most Recent Tobacco Screening? 06/06/2021 Information not available 06/06/2021 What Is Your Relationship Status? Information not available 06/06/2021 Do You Use Your Seat Belt Or Car Seat Routinely? Yes Information not available 06/06/2021 Do You Have Smoke And Carbon Monoxide Detectors In Your Home? Yes Information not available 06/06/2021 Are You Passively Exposed To Smoke? No Information no t available 06/06/2021 Do You Feel Stressed (tense, Restless, Nervous, Or Anxious, Or Unable To Sleep At Night)? [id number] Information not available 06/06/2021 Do You Use Any Illicit Or Recreational Drugs? No Information not available 06/06/2021 Sex: Female Functional Status Question Answer Note LastModified by Organizat ion Details LastModified Time Are you able to care for yourself? Yes Information not available 06/06/2021 What is your exercise level? Occasional Information not available 06/06/2021 Mental Status None recorded. Family History Nothing Reported. Medical History No medical history recorded. Gynecological History Statement/Question Response Menses Monthly N Obstetrics History GPAL:G 0 P 0 0 0 0 Immunizations Vaccine Type Date Status Note Provider Kaz e and Address Organization Details Recorded Time Influenza, split virus, quadrivalent, preservative 9 completed [place], [place] [facility] 07/24/2019 15:42:49 zoster, unspecified formulation 9 completed [place] [facility] 07/24/2019 15:43:45 COVID-19, mRNA, LNP-S, PF, 30 mcg/0.3 mL dose 0 completed Latasha Mcknight [place], [place] [facility] 06/06/2021 11:22:26 COVID-19, mRNA, LNP-S, PF, 30 mcg/0.3 mL dose 1 completed Latasha Mcknight [place], [place] [facility] 06/06/2021 11:22:39 Influenza, split virus, quadrivalent, preservative 7 completed Not Available [facility] 09/20/2019 02:49:07 Tdap 2 completed Not Available [facility] 09/06/2016 05:57:09 Past Encounters Encounter ID Performer Location Encounter Start Date Encounter Closed Date Diagnosis/Indication Diagnosis SNOMED-CT Code Diagnosis ICD10 Code Diagnosis Note [id number] NIC Kenney [facility] [address] [place] [address] 07/19/2016 14:04:36 07/21/2016 13:38:45 Adult health examination 559428337 Z00.00 preclinica l form, flu shot already [id number] NIC Kenney [facility] [address] [place] [address] 10/26/2016 14:10:14 10/27/2016 11:46:54 Influenza-like illness 87715465 B34.9 will rech flu swab tomorrow and start tamiflu if positive. Delsym is fine, lots of fluids. [id number] Nadia ta [facility] [address] [place] [address] 06/01/2017 13:52:33 06/01/2017 14:47:23 Administration of influenza vaccine 80662970 Z23 [id number] NIC Kenney [facility] [address] [place] [address] 10/15/2017 10:51:26 10/15/2017 17:37:13 Hyperlipidemia screening 926527836 Z13.220 Goiter 1670485 E04.9 no preference on location, [facility] or [facility] fine Fatigue 88162732 R53.83 [id number] Nadia ta [facility] [address] [place] [address] 10/22/2017 10:30:54 10/25/2017 09:40:08 Iron deficiency anemia 20986868 D50.9 [id number] NIC Kenney [facility] [address] [place] [address] 04/23/2018 11:11:21 04/24/2018 11:27:22 Chronic diarrhea 557801956 K52.9 History of anemia - iron deficient 181483039 Z86.2 Acute laryngitis 2172458 J04.0 Hematochezia 755792056 K 62.5 [id number] NIC Kenney [facility] [address] [place] [address] 04/03/2019 11:24:34 04/03/2019 14:10:10 Abdominal pain 08349052 R10.9 Acute urin umberto tract infection 304673706 N39.0 discussed hydration, which she seems to be very intentiona l in trying to keep up, but even liquids go straight through her. Await culture to confirm UTI. Ulcerative colitis 44340 004 K51.00 per GI team at [facility] [id number] NIC Kenney [facility] [address] [place] [address] 05/01/2019 11:08:48 05/01/2019 12:21:16 Acute sinusitis 10753496 J01.90 continue antihistam ine, saline NS, etc. Call with any fevers or if no better Immunosuppression 808579 05 D84.9 [id number] NIC Kenney [facility] [address] [place] [address] 04/02/2020 10:41:51 04/02/2020 13:26:44 Acute sinusitis 03950245 J01.90 continue antihistam ine, saline NS, etc. Call with any fevers or if no better. Will let me know about her COVID results next week. Patient immunocompromised 444328670 D84.9 Ulcerative colitis 80315 004 K51.00 per GI team at [facility], JUST had scope in January and this was the first time that it showed any improvemen t at all. Still active but not ulcerative and no bleeding. Deviated nasal septum 12 6547515 J34.2 continue budesonide nasal rinse per ENT instructio n [id number] [facility] [address] [place] [address] 06/06/2021 09:59:26 06/06/2021 16:02:45 Ulcerative colitis 46197827 K51.00 I spoke with [facility], and the nurse there was going to give Kisha's info to Dr. Oconnor' s MA who runs the IBD side of the clinic, and she will personally give her a call to schedule appt. Kisha will come in today to have labs drawn here at [facility] Iron defic iency anemia 89213732 D50.9 Diarrhea 47430116 R19.7 Health Concerns Section Related Observation LastModified by Organization Detai ls LastModified Time None Recorded Concern Status LastModified by Organization Details LastModified Time None Recorded Advance Directives Directive N: Payers Encounter Date Sequence Insurance Name Policy Number Policy Bowens Covered Member ID Bowens Member ID Guarantor Name 04/23/2018 1 [facility] [id number] Xavi S Danielle [id number] Kisha Santos 04/03/2019 1 [facility] [id number] Xavi S Danielle [id number] Kisha Santos 05/01/2019 1 [facility] [id number] Xavi S Danielle [id number] Kisha Santos 04/02/2020 1 [facility] [id number] Kisha Santos [id number] Kisha Santos 06/06/2021 1 [facility] (O) [id number] Kisha Dempseywell [id number] Kisha Santos Notes Date Note Type Note Provider Name and Address Organization Details Recorded Time 04/23/2018 text/html Sinusitis/Allerg yRepor leo bypatient.Location:[facility] Associated Symptoms:no fever; no weight loss; no hemoptysis; no hematemesis; no difficulty breathing; no feeling of strangulation; no nausea or vomiting; no sinus pain; no nasal passage blockage; no nasal itching; no eye itching; no pain behind the eyes; no skin itching;nasal discharge from both nostrils;headache forehead;facial pain bilaterally;sore throat;ear fullness Onset/Timing:new onset Quality:weak voice;hoarseness Duration:frequent Severity:no pain; no frequent breathing through the mouth; no nosebleeds (epistaxis); no snoring;interference with work Context:no recent upper respiratory infection; no recent sick contacts; not worse with seasonal allergen exposure; not worse around animals; not worse around pollen; not worse around dust; not worse around molds; not worse with environmental exposure; not worse when mowing grass; not worse with certain foods; not worse with odors Risk Factors:no current smoking or tobacco use; no history of smoking; no increased stress; no family history of allergies; no history of nasal trauma; no allergy to aspirin; no history of nasal polyps; no history of asthma; no chemotherapy; no DM; no HIV; no immunodeficiency Alleviating factors:nothing gives reliefNotes:Also has suffered from IBS for years. Scoped at 16 and diagnosed with IBS but for a while thought she had IBD. With her IBS was the best. 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 Some incontinence it's been so bad. Sees blood off and on. 10-15 loose stools daily. No blood on the toilet paper but blood and mucus in her stool on occasion. Takes nothing for it, has just done diet, exercise and stress control. NIC Kenney Attn: Accounting[address] [place], [address], [facility] 04/23/2018 12:21:33 04/03/2019 text/html Abdominal PainRe ported bypatient.Location:LLQ (flank); RUQ (flank pain); radiating (back and hips) Quality:pain;cramping Severity:moderate Duration:cannot identify; constant Onset/Timing:worse Modifying Factors:nothing gives relief Associated Symptoms:no fever; no chills;blood in the urine(discomfort when going);nausea;diarrhea Other:denies possible pregnancyNotes:has been really dehydrated the last week, about 15 BMs per day, watery. Has UC diagnosis. No fevers, no achiness. Has iron infusions and biologics with [facility] team. NIC Kenney Attn: Accounting[address] [place], [address], [facility] 04/04/2019 12:07:31 05/01/2019 text/html Sinusitis/Allerg yRepor leo bypatient.Location:[facility] Associated Symptoms:nasal discharge from both nostrils;sinus pain forehead;sore throat;ear fullness Onset/Timing:pt stated her sypmtoms are getting worse not better Quality:worsening;weak voice;aching;congested ; pt stated that she has constant pain in her head all over Duration:intermittent Severity:mild;limits daily activities Context:worse with seasonal allergen exposure Risk Factors:family history of allergies Alleviating factors:nothing gives relief Aggravating factors:worse when allergies are activeNotes:pt stated that she has been taking over the counter medication to ease the pain of her sinus. ONly side effect from the Entivio so far has been that her typical cold has progressed to sinusitis quickly, despite her zyrtec flonase etc routine to try to help. No fevers, but teeth hurt, headache around eyes. NIC Kenney Attn: Accounting[address] [place], [address], [facility] 05/01/2019 12:06:04 04/02/2020 text/html Sinusitis/Allerg yRepor leo bypatient.Associated Symptoms:nasal discharge from both nostrils;fever/chills( no fever);headache forehead;facial pain bilaterally;sinus pain cheek;sore throat;thick phlegm in throat;constantly clearing the throat;nasal discharge;ear fullness;pain behind the eyes both Onset/Timing:last night Quality:weak voice;hoarseness;achin g;congested;colored phlegm(thick yellow);watering; only coughs when she chokes on phlegm. 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 Just got back from [place], rented a house, cooked everything at home. Brother and sister in law got tested this week as well and were negative for viral URI. always takes zyrtec and flonase with steroid rinse. Has been off of the rinse. NIC Kenney Attn: Accounting,[address] [facility], [place], [address], [facility] 04/02/2020 12:07:05 06/06/2021 text/html Generic HPI TemplateReported bypatient.Notes:raven correa wanted to discuss her colitis, she stated that her labs have been off and that she has been on 3 different medications for it. She stated that she has been having trouble getting through to GI doctor and she wanted to talk and get some advice. She said she is having frequent loose stools with blood. On Entivio for a long time and felt that it was working for her clinically, could get through a work day and evening without diarrhea. He stopped her due to some lab work. Switched to Stellera with no help at all, infusions and shots. Monico she was also on it at the beginning of the Entivio and her GI thought that was the medication that was helping her so she restarted that orally against her intuition. Had very bad SEs and stopped, so suggested change to Remicade. Has had one infusion, and she is bleeding daily and getting more and more anemic. Getting palpitations and weak and fatigue. NIC Kenney Attn: Accounting[address] [facility], [place], [address], [facility] 06/06/2021 15:55:40 OBGyn Episode No OBEpisode recorded.
--- OUTSIDE RECORDS SUMMARY | 2024-10-10 13:28 | XMS_ITS | Encounter Summary ---
Author Organization [facility] Address [address] [place] [address] Care Team Providers Care Front Desk Admin Name Role Phone Unavailable Primary Care Provider Unavailabl e Encounter Details Date Type Department Care Team (Late st Contact Info) Description 04/03/2018 Lab Requisition [facility] D[facility] Lab [address] [facility] [place] [id number] Reji Jones MD [address] [place] [address] Social History Tobacco Use Types Packs/Day Years Used Date Smoking Tobacco: Never Assessed Sex and Gender Information Value Date Recorded Sex Assigned at Not on file Gender Identity Not on file Sexual Orientation Not on file documented as of this encounter Plan of Treatment Not on file documented as of this encounter Procedures Procedure Name Priority Date/Time Associated Diagnosis Comments DERMATOPATHOLOGY Routine 04/02/2018 12:0 0 AM CDT documented in this encounter Results * DERMATOPATHOLOGY (04/02/2018 12:00 AM CDT) Case Report Dermatopathology Report Case: [id number] Authorizing Provider: Reji Jones MD Collected: 04/02/2018 12:00 AM Pathologist: Mario Spears MD Received: 04/03/2018 11:51 AM Specimens: A) - Skin, right lateral posterior hip above buttock B) - Skin, right lower breast C) - Skin, left lateral thigh below buttock D) - Skin, left medial lower leg above ankle 4:09 PM CDT DERMATOPATHOLOGY LABORATORY Final Diagnosis Specimen A. SKIN, right lateral posterior hip above buttock: LENTIGINOUS MELANOCYTIC NEVUS, COMPOUND TYPE, IRRITATED (COMPOUND MELANOCYTIC NEVUS WITH ARCHITECTURAL DISORDER) (D22.71) Specimen B. SKIN, right lower breast: LENTIGINOUS MELANOCYTIC NEVUS, COMPOUND TYPE, IRRITATED (COMPOUND MELANOCYTIC NEVUS WITH ARCHITECTURAL DISORDER) (D22.5) POST-INFLAMMATORY PIGMENT ALTERATION (L81.9) Specimen C. SKIN, left lateral thigh below buttock: COMPOUND MELANOCYTIC NEVUS WITH CONGENITAL FEATURES, IRRITATED (D22.72) Specimen D. SKIN, left medial lower leg above ankle: LENTIGINOUS MELANOCYTIC NEVUS, COMPOUND TYPE, IRRITATED (COMPOUND MELANOCYTIC NEVUS WITH ARCHITECTURAL DISORDER) (D22.72) 8 4:09 PM [facility] DERMATOPATHOLOGY LABORATORY Clinical History A-D: R/O Dys nevus. 8 4:09 PM [facility] DERMATOPATHOLOGY LABORATORY Gross Description Specimen A: Received is one formalin filled container labeled with the patient's name and designated right lateral posterior hip above buttock. The specimen consists of a shave biopsy measuring [id number]. Jar 0. Specimen B: Received is one formalin filled container labeled with the patient's name and designated right lower breast. The specimen consists of a shave biopsy measuring [id number]. Jar 0. Specimen C: Received is one formalin filled container labeled with the patient's name and designated left lateral thigh below buttock. The specimen consists of a shave biopsy measuring [id number]. Jar 0. Specimen D: Received is one formalin filled container labeled with the patient's name and designated left medial lower leg above ankle. The specimen consists of a shave biopsy measuring [id number]. Jar 0. 8 4:09 PM [facility] DERMATOPATHOLOGY LABORATORY Microscopic Description Specimen A. SKIN, right lateral posterior hip above buttock: This is a compound nevus. There is melanin pigment in the stratum corneum. There is architectural disorder characterized by a lentiginous proliferation of melanocytes between irregular nevus nests of cells along the dermal epidermal junction. There is underlying fibroplasia of the papillary dermis. The intradermal component is bland in appearance and matures with depth. (Compound Frantz's Nevus or Compound Dysplastic Nevus) Specimen B. SKIN, right lower breast: This is a compound nevus. There is melanin pigment in the stratum corneum. There is architectural disorder characterized by a lentiginous proliferation of melanocytes between irregular nevus nests of cells along the dermal epidermal junction. There is underlying fibroplasia of the papillary dermis. The intradermal component is bland in appearance and matures with depth. (Compound Frantz's Nevus or Compound Dysplastic Nevus) Sections show abundant melanin within melanophages around the superficial vascular plexus. Specimen C. SKIN, left lateral thigh below buttock: There is melanin pigment in the stratum corneum. There are nests of melanocytes at the dermal-epidermal junction and within the dermis. Specimen D. SKIN, left medial lower leg above ankle: This is a compound nevus. There is melanin pigment in the stratum corneum. There is architectural disorder characterized by a lentiginous proliferation of melanocytes between irregular nests of cells along the dermal-epidermal junction, highlighted by MART-1/Melan-A immunohistochemical staining. There is underlying fibroplasia of the papillary dermis. The intradermal component is bland appearance and matures with depth. Original and deeper sections were reviewed. (Compound Frantz's Nevus or Compound Dysplastic Nevus) 8 4:09 PM CDT DERMATOPATHOLOGY LABORATORY Disclaimer An external and internal positive and negative controls are appropriate for the histochemical, immunohistochemical and immunofluorescence stain(s) in this case (if any), except where stated explicitly. The performance characteristics of the stain(s) cited in this report were developed and its performance characteristic determined by the Dermatopathology Laboratory at [facility]. These tests need not be, and therefore are not, approved by the [place] Food and Drug Administration. The tests are used for clinical purposes. Billing Codes Specimen Charges Stain Charges 84161 77858 41394 32507 1 1 1 1 10004 1 8 4:09 PM CDT DERMATOPATHOLOGY LABORATORY Embedded Images 8 4:09 PM CDT DERMATOPATHOLOGY LABORATORY Pathology/Cytology TISSUE SPECIMEN FROM SKIN / Unknown 04/02/2018 04/03/2018 11:51 AM CDT Miscellaneous samples (specimen) TISSUE SPECIMEN FROM SKIN / Unknown 04/02/2018 04/03/2018 11:51 AM CDT Miscellaneous samples (specimen) TISSUE SPECIMEN FROM SKIN / Unknown 04/02/2018 04/03/2018 11:51 AM CDT Miscellaneous samples (specimen) TISSUE SPECIMEN FROM SKIN / Unknown 04/02/2018 04/03/2018 11:51 AM CDT Reji Jones MD LAB - PATHOLOGY/CYTO LOGY ORDERABLES DERMATOPATHOLOGY LABORATORY [facility] - Department of Dermatology [facility] [facility] [place] [address], [facility] [phone] documented in this encounter Visit Diagnoses Not on filedocumented in this encounter
--- OUTSIDE RECORDS SUMMARY | 2024-10-10 13:28 | XMS_ITS | Patient Health Summary ---
Author Organization [facility] Address [address] [place] [address] Care Team Providers Care Ride Assembly Supervisor Name Role Phone Unavailable Primary Care Provider Unavailabl e Note from [facility],non-owned Affiliates and Associated Physician Practices is amultiple site organization consisting of ambulatory clinics and hospital sitesin [place], [place], [place] and [place]. This disclosure is being madepursuant to the Care Everywhere program and may not contain all information available regarding this patient. Last updated 18.[facility] Social History Tobacco Use Types Packs/Day Years Used Date Smoking Tobacco: Never Assessed Sex and Gender Information Value Date Recorded Sex Assigned at Not on file Gender Identity Not on file Sexual Orientation Not on file Procedures * DERMATOPATHOLOGY(Performed 07/08/2024) * DERMATOPATHOLOGY(Performed 06/23/2024) * DERMATOPATHOLOGY(Performed 04/02/2018) * DERMATOPATHOLOGY(Performed 01/03/2018) * DERMATOPATHOLOGY(Performed 12/07/2010) * DERMATOPATHOLOGY(Performed 11/30/2010) Results * DERMATOPATHOLOGY (07/08/2024 10:10 AM FRENCH WEAVER) Only the most recent of6 resultswithin the time period is included. Case Report Dermatopathology Report Case: [id number] Authorizing Provider: Diamond Cote MD Collected: 07/08/2024 10:10 AM Ordering Location: [facility] - Received: 07/09/2024 09:38 AM DermPath Lab Pathologist: Mario Spears MD Specimen: Skin, right medial foot 4 3:54 PM [facility] DERMATOPATHOLOGY LABORATORY Final Diagnosis Specimen A. SKIN, right medial foot: DERMAL SCAR; PRESENT AT MARGIN RESIDUAL MELANOCYTIC PROLIFERATION NOT IDENTIFIED (L90.5) (see microscopic description) 4 3:54 PM [facility] DERMATOPATHOLOGY LABORATORY Clinical History BX proven FIDE prolif 4 3:[address] [facility] DERMATOPATHOLOGY LABORATORY Gross Description Specimen A: Received is one formalin filled container labeled with the patient's name and designated right medial foot. The specimen consists of a non-oriented ellipse of skin measuring 13x5x2 mm. The epidermal surface is unremarkable. The margin is inked green. The 12 o'clock and 6 o'clock tips are submitted in cassette 1. The remainder of the ellipse is serially sectioned and submitted in cassette 2. Jar 0. 4 3:[address] [facility] DERMATOPATHOLOGY LABORATORY Microscopic Description Specimen A. SKIN, right medial foot: There are fibroblasts and collagen bundles oriented parallel to the skin surface. There are elongated blood vessels, some of which are oriented perpendicular to the skin surface. No residual melanocytic proliferation is identified. The scar is present at the base of the specimen. 4 3:[address] [facility] DERMATOPATHOLOGY LABORATORY Disclaimer An external and internal positive and negative controls are appropriate for the histochemical, immunohistochemical and immunofluorescence stain(s) in this case (if any), except where stated explicitly. The performance characteristics of the stain(s) cited in this report were developed and its performance characteristic determined by the Dermatopathology Laboratory at [facility], directed by Dr. Thierno Spears. These tests need not be, and therefore are not, approved by the [place] Food and Drug Administration. The tests are used for clinical purposes. Billing Codes Specimen Charges Stain Charges 03347 1 4 3:[address] [facility] DERMATOPATHOLOGY LABORATORY Embedded Images 4 3:[address] [facility] DERMATOPATHOLOGY LABORATORY Pathology/Cytolo gy TISSUE SPECIMEN FROM SKIN / Unknown 07/08/2024 10:10 AM FRENCH WEAVER 07/09/2024 9:38 AM [facility]EN[facility] WEAVER Diamond Cote MD LAB - PATHOLOGY/CYT OLOGY ORDERABLES DERMATOPATHOLOGY LABORATORY [facility] - Department of Dermatology [address], [address] [phone]
--- OUTSIDE RECORDS SUMMARY | 2024-10-10 13:28 | XMS_ITS | Encounter Summary ---
Author Organization [facility] Address [address] [place] [address] Care Team Providers Care Senior Major Gifts Officer Name Role Phone Unavailable Primary Care Provider Unavailabl e Encounter Details Date Type Department Care Team (Late st Contact Info) Description 06/23/2024 Lab Requisition [facility] - DermPath Lab [address] [place] [id number] Leonarda Grimm PA [address] [place] [address] Social History Tobacco Use Types Packs/Day Years Used Date Smoking Tobacco: Never Assessed Sex and Gender Information Value Date Recorded Sex Assigned at Not on file Gender Identity Not on file Sexual Orientation Not on file documented as of this encounter Plan of Treatment Not on file documented as of this encounter Procedures Procedure Name Priority Date/Time Associated Diagnosis Comments DERMATOPATHOLOGY Routine 06/23/2024 2:40 PM CDT documented in this encounter Results * DERMATOPATHOLOGY (06/23/2024 2:40 PM CDT) Case Report Dermatopathology Report Case: [id number] Authorizing Provider: Leonarda Grimm PA Collected: 06/23/2024 02:40 PM Ordering Location: [facility] Physician [facility] - Received: 06/24/2024 12:14 PM DermPath Lab Pathologist: Amaya Ba MD Specimens: A) - Skin, mid upper abdomen B) - Skin, right medial foot 1:27 PM CDT DERMATOPATHOLOGY LABORATORY Final Diagnosis Specimen A. SKIN, mid upper abdomen: LENTIGINOUS MELANOCYTIC NEVUS, JUNCTIONAL TYPE, INFLAMED (D22.0) Specimen B. SKIN, right medial foot: JUNCTIONAL MELANOCYTIC PROLIFERATION; PRESENT AT MARGIN (D48.5) (see microscopic description and comment) 1:27 PM [facility] DERMATOPATHOLOGY LABORATORY Clinical History A-B: Nevus, R/O atypia, irregular border, irregular color 1:27 PM [facility] DERMATOPATHOLOGY LABORATORY Gross Description Specimen A: Received is one formalin filled container labeled with the patient's name and designated mid upper abdomen. The specimen consists of a shave biopsy measuring 5x3x1 mm. Jar 0. Specimen B: Received is one formalin filled container labeled with the patient's name and designated right medial foot. The specimen consists of a shave biopsy measuring 5x4x1 mm. Jar 0. 1:27 PM [facility] DERMATOPATHOLOGY LABORATORY Microscopic Description Specimen A. SKIN, mid upper abdomen: This is a junctional nevus. There is a lentiginous proliferation of melanocytes between nevus nests of cells along the dermal-epidermal junction. There is underlying lamellar fibroplasia of the papillary dermis. (Junctional Frantz's Nevus) Inflammatory cells are present within the nevus. Specimen B. SKIN, right medial foot: Sections show a junctional melanocytic proliferation. There is a lentiginous proliferation of melanocytes between irregular nests. Scattered melanocytes show evidence of upward migration within the epidermis. The melanocytes are highlighted by MART-1/Melan-A. PRAME stains the melanocytes with 2-3+ intensity. P16 is retained within the melanocytes. This lesion is present at the margin of the specimen. COMMENT: Because this lesion is present at the margin of the specimen, symmetry and circumscription cannot be evaluated. Therefore, a complete but conservative re-excision is recommended to evaluate this lesion in its entirety. This case was shared with Dr. Anahi Pak who agrees. 1:27 PM [facility] DERMATOPATHOLOGY LABORATORY Disclaimer An external and internal positive and negative controls are appropriate for the histochemical, immunohistochemical and immunofluorescence stain(s) in this case (if any), except where stated explicitly. The performance characteristics of the stain(s) cited in this report were developed and its performance characteristic determined by the Dermatopathology Laboratory at [facility], directed by Dr. Thierno Spears. These tests need not be, and therefore are not, approved by the [place] Food and Drug Administration. The tests are used for clinical purposes. Billing Codes Specimen Charges Stain Charges 65955 01780 1 1 53104 40630 58749 1 1 1 4 1:27 PM CDT DERMATOPATHOLOGY LABORATORY Embedded Images 4 1:27 PM CDT DERMATOPATHOLOGY LABORATORY Pathology/Cytology TISSUE SPECIMEN FROM SKIN / Unknown 06/23/2024 2:40 PM CDT 06/24/2024 12:14 PM CDT Miscellaneous samples (specimen) TISSUE SPECIMEN FROM SKIN / Unknown 06/23/2024 2:40 PM CDT 06/24/2024 12:14 PM CDT Leonarda LUCERO LAB - PATHOLOGY/CYTO LOGY ORDERABLES DERMATOPATHOLOGY LABORATORY [facility] - Department of Dermatology [facility] [address] [place] [address], [address] [phone] documented in this encounter Visit Diagnoses Not on filedocumented in this encounter
--- OUTSIDE RECORDS SUMMARY | 2024-10-10 13:28 | XMS_ITS | Encounter Summary ---
Author Organization [facility] Address [address] [place] [address] Phone Care Team Providers Care Substance Abuse Clinician Name Role Phone Adry Linder MD Primary Care Provider + Arlyn Sanches Primary Care Provider [phone] Adry Linder MD Primary Care Provider + Adry Linder MD Primary Care Provider + Adry Linder MD Primary Care Provider + Joe Judge MD Unavailable Rylan Conn MD Unavailable [phone] Luz Garner MD Unavailable [phone] Encounter Details Date Type Department Care Team (Late st Contact Info) Description 11/20/2018 Orders Only [facility] Scanning, Provider Social History Tobacco Use Types Packs/Day Years Used Date Smoking Tobacco: Never Comments Unknown Sex and Gender Information Value Date Recorded Sex Assigned at Not on file Legal 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 Female 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 Gender Identity Not on file Sexual Orientation Not on file documented as of this encounter Plan of Treatment Not on file documented as of this encounter Procedures Procedure Name Priority Date/Time Associated Diagnosis Comments SCAN - PATHOLOGY 11/20/2018 documented in this encounter Results * SCAN - PATHOLOGY (11/20/2018) us Provider Scanning Final Result documented in this encounter Visit Diagnoses Not on filedocumented in this encounter Care Teams Substance Abuse Clinician Relationship Specialty Start Date End Date Adry Linder MD [address] [place] [address] PCP - General 01/22/15 12/02/18 Arlyn Sanches PA [address] [place] [address] PCP - General 12/03/18 12/03/18 Adry Linder MD [address] [place] [address] PCP - General 12/04/18 12/30/18 Adry Linder MD [address] [place] [address] PCP - General 12/31/18 08/27/19 Adry Linder MD [address] [place] [address] PCP - General 08/28/19 Joe Judge MD [address] [place] [address] Consulting Physician Urology 06/07/21 Rylan Conn MD [address] [facility] [phone] [place] [address] Surgeon Colon and Rectal Surgery 09/26/22 Luz Garner MD [address] [place] [address] Dry Wall Finisher Gastroenterology 09/26/22 documented as of this encounter
--- OUTSIDE RECORDS SUMMARY | 2024-10-10 13:28 | XMS_ITS | Referral Summary ---
Author Organization [facility] Address [address] [place] [address] Care Team Providers Care Aircraft Design Engineer Name Role Phone Unavailable Primary Care Provider Unavailabl e Source Comments [facility],non-owned Affiliates and Associated Physician Practices is amultiple site organization consisting of ambulatory clinics and hospital sitesin [place], [place], [place] and [place]. This disclosure is being madepursuant to the Care Everywhere program and may not contain all information available regarding this patient. Last updated 18.[facility] Social History Tobacco Use Types Packs/Day Years Used Date Smoking Tobacco: Never Assessed Sex and Gender Information Value Date Recorded Sex Assigned at Not on file Gender Identity Not on file Sexual Orientation Not on file Plan of Treatment Not on file
--- OUTSIDE RECORDS SUMMARY | 2024-10-10 13:28 | XMS_ITS | Clinical Summary ---
Author Organization [facility] Address [address] [place] [phone] Phone Care Team Providers Care Linseed Oil Press Tender Name Role Phone Arlyn Sanches Primary Care Provider [phone] Social History Tobacco Use Types Packs/Day Years Used Date Smoking Tobacco: Never Assessed Comments Unknown Sex and Gender Information Value Date Recorded Sex Assigned at Not on file Legal Sex Female 5:08 PM CDT Gender Identity Not on file Sexual Orientation Not on file Plan of Treatment Health Maintenance Due Date Last Done Comments HEPATITIS B VACCINES (1 of 3 - 19+ 3-dose series) 2005 CERVICAL CANCER SCREENING 01/07/2016 DTAP/TDAP/TD VACCINES (2 - T d or Tdap) 02/22/2022 02/23/2012 INFLUENZA VACCINE (#1) 2024 06/01/2017 HPV VACCINES Aged Out No longer eligi ble based on patient's age to complete this topic Care Teams Linseed Oil Press Tender Relationship Specialty Start Date End Date Arlyn Sanches PA [address] [phone] PCP - General Physician Fine Patcher 06/08/21
--- OUTSIDE RECORDS SUMMARY | 2024-10-10 13:28 | XMS_ITS | Clinical Summary ---
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 Gender Identity Not on file Sexual Orientation Not on file Plan of Treatment Health Maintenance Due Date Last Done Comments Hepatitis C Virus (HCV) Screening 1986 Hepatitis B Immunization (1 of 3 - 19+ 3-dose series) 2005 Pap Smear 2007 Cervical Cancer Screening (CCS) 01/07/2016 HPV/Cotest 01/07/2016 Influenza Immunization (#1) 2024 06/01/2017 SARS-COV-2 Immunization ( season) 2024 08/24/2020 Respiratory Syncytial Virus (RSV) Immunization (Adult) (1 - 1-dose 75+ series) 2061 DTaP/Tdap/Td Immunization Discontinued 02/23/2012 TdaP Immunization Completed 02/23/2012 Meningococcal Immunization (ACWY) Aged Out No longer eligible based on patient's age to complete this topic Pneumococcal Immunization Combined Aged Out No longer eligible b ased on patient's age to complete this topic Rotavirus Immunization Aged Out No lo nger eligible based on patient's age to complete this topic
--- OUTSIDE RECORDS SUMMARY | 2024-10-10 13:28 | XMS_ITS | Clinical Summary ---
Author Organization [facility] Address [address] [place] [address] Care Team Providers Care Dispatch Clerk Name Role Phone Unavailable Primary Care Provider Unavailabl e Source Comments [facility],non-owned Affiliates and Associated Physician Practices is amultiple site organization consisting of ambulatory clinics and hospital sitesin [place], [place], [place] and [place]. This disclosure is being madepursuant to the Care Everywhere program and may not contain all information available regarding this patient. Last updated 18.[facility] Social History Tobacco Use Types Packs/Day Years Used Date Smoking Tobacco: Never Assessed Sex and Gender Information Value Date Recorded Sex Assigned at Not on file Gender Identity Not on file Sexual Orientation Not on file Plan of Treatment Health Maintenance Due Date Last Done Comments PAP SMEAR 1986 HIV SCREENING 2001 HEPATITIS C SCREENING 01/02/2004 DTAP/TDAP/TD VACCINES (1 - Tdap) 2005 HEPATITIS B VACCINE (1 of 3 - 19+ 3-dose series) 2005 COVID-19 VACCINE ( - 2023-2 5 season) 2024 INFLUENZA VACCINE (#1) 2024 DEPRESSION SCREENING 09/03/2024 ZOSTER VACCINE (1 of 2) 01/07/2036 HIB VACCINE Aged Out No longer eligi ble based on patient's age to complete this topic HPV VACCINE Aged Out No longer eligi ble based on patient's age to complete this topic MENINGOCOCCAL (Group B) VACCINE Aged Out No longer eligible based on patient's age to complete this topic MENINGOCOCCAL VACCINE Aged Out No kaye pilar eligible based on patient's age to complete this topic PNEUMOCOCCAL VACCINE Aged Out No long er eligible based on patient's age to complete this topic
--- OUTSIDE RECORDS SUMMARY | 2024-10-10 13:28 | XMS_ITS | Encounter Summary ---
Author Organization [facility] Address [address] [place] [address] Care Team Providers Care Medical Reviewer Name Role Phone Unavailable Primary Care Provider Unavailabl e Encounter Details Date Type Department Care Team (Late st Contact Info) Description 01/04/2018 Lab Requisition [facility] Care DermPath Lab [address] [facility] [place] [phone] Reji Jones MD [address] [place] [address] Social History Tobacco Use Types Packs/Day Years Used Date Smoking Tobacco: Never Assessed Sex and Gender Information Value Date Recorded Sex Assigned at Not on file Gender Identity Not on file Sexual Orientation Not on file documented as of this encounter Plan of Treatment Not on file documented as of this encounter Procedures Procedure Name Priority Date/Time Associated Diagnosis Comments DERMATOPATHOLOGY Routine 01/03/2018 12:0 0 AM CDT documented in this encounter Results * DERMATOPATHOLOGY (01/03/2018 12:00 AM CDT) Case Report Dermatopathology Report Case: [id number] Authorizing Provider: Reji Jones MD Collected: 01/03/2018 12:00 AM Pathologist: Keara Wood MD Received: 01/04/2018 01:02 PM Specimens: A) - Skin, left medial breast B) - Skin, epigastrium C) - Skin, right under right jawline D) - Skin, right lat abdomen 3:16 PM CDT DERMATOPATHOLOGY LABORATORY Final Diagnosis Specimen A. SKIN, left medial breast: LENTIGINOUS MELANOCYTIC NEVUS, JUNCTIONAL TYPE, IRRITATED (JUNCTIONAL MELANOCYTIC NEVUS WITH ARCHITECTURAL DISORDER) (D22.5) NOT PRESENT AT SAMPLED MARGIN Specimen B. SKIN, epigastrium: LENTIGINOUS MELANOCYTIC NEVUS, COMPOUND TYPE, IRRITATED AND INFLAMED (COMPOUND MELANOCYTIC NEVUS WITH ARCHITECTURAL DISORDER) (D22.5) (see microscopic description and comment) Specimen C. SKIN, right under right jawline: COMPOUND MELANOCYTIC NEVUS (D22.39) PRESENT AT MARGIN Specimen D. SKIN, right lat abdomen: LENTIGINOUS MELANOCYTIC NEVUS, COMPOUND TYPE (COMPOUND MELANOCYTIC NEVUS WITH ARCHITECTURAL DISORDER) (D22.5) PRESENT AT MARGIN 3:16 PM T DERMATOPATHOLOGY LABORATORY Clinical History A-D: R/O dys nevus. Check margins. 3:16 PM T DERMATOPATHOLOGY LABORATORY Gross Description Specimen A: Received is one formalin filled container labeled with the patient's name and designated left medial breast. The specimen consists of a shave biopsy measuring [id number]. The margin is inked green. Jar 0. Specimen B: Received is one formalin filled container labeled with the patient's name and designated epigastrium. The specimen consists of a shave biopsy measuring [id number]. The margin is inked green. Jar 0. Specimen C: Received is one formalin filled container labeled with the patient's name and designated right under right jawline. The specimen consists of a shave biopsy measuring [id number]. The margin is inked green. Jar 0. Specimen D: Received is one formalin filled container labeled with the patient's name and designated right lat abdomen. The specimen consists of a shave biopsy measuring [id number]. The margin is inked green. Jar 0. 3:16 PM T DERMATOPATHOLOGY LABORATORY Microscopic Description Specimen A. SKIN, left medial breast: This is a junctional nevus. There is melanin pigment in the stratum corneum. There is architectural disorder characterized by a lentiginous proliferation of melanocytes between irregular nests of cells along the dermal-epidermal junction. There is underlying fibroplasia of the papillary dermis as well as scattered melanophages. (Junctional Frantz's Nevus or Junctional Dysplastic Nevus) This lesion is not present at the sampled margin of the specimen. Specimen B. SKIN, epigastrium: This is a compound nevus. There is melanin pigment in the stratum corneum. There is architectural disorder characterized by a lentiginous proliferation of melanocytes between irregular nests of cells along the dermal-epidermal junction, highlighted by MART-1/Melan-A immunohistochemical staining. There is underlying fibroplasia of the papillary dermis. The intradermal component is bland appearance and matures with depth.There is a lymphohistiocytic infiltrate within the dermis. Original and deeper sections were reviewed. (Compound Frantz's Nevus or Compound Dysplastic Nevus) This lesion is present at the margin of the specimen. COMMENT: The histopathologic findings of the portion of the lesion sampled are reassuring. However, as this lesion is present at the margins of the specimen, clinicopathological correlation is recommended as to the nature of the remaining lesion. Specimen C. SKIN, right under right jawline: There are nests of melanocytes at the dermal-epidermal junction and within the dermis. This lesion is present at the margin of the specimen. Specimen D. SKIN, right lat abdomen: This is a compound nevus. There is melanin pigment in the stratum corneum. There is architectural disorder characterized by a lentiginous proliferation of melanocytes between irregular nevus nests of cells along the dermal epidermal junction. There is underlying fibroplasia of the papillary dermis and scattered melanophages. The intradermal component is bland in appearance and matures with depth. (Compound Frantz's Nevus or Compound Dysplastic Nevus) This lesion is present at the margin of the specimen. 3:16 PM CDT DERMATOPATHOLOGY LABORATORY Disclaimer An external and internal positive and negative controls are appropriate for the histochemical, immunohistochemical and immunofluorescence stain(s) in this case (if any), except where stated explicitly. The performance characteristics of the stain(s) cited in this report were developed and its performance characteristic determined by the Dermatopathology Laboratory at [facility]. These tests need not be, and therefore are not, approved by the [place] Food and Drug Administration. The tests are used for clinical purposes. Billing Codes Specimen Charges Stain Charges 40537 17793 32603 47293 1 1 1 1 23536 1 8 3:16 PM CDT DERMATOPATHOLOGY LABORATORY Embedded Images 3:16 PM CDT DERMATOPATHOLOGY LABORATORY Pathology/Cytology TISSUE SPECIMEN FROM SKIN / Unknown 01/03/2018 01/04/2018 1:02 PM CDT Miscellaneous samples (specimen) TISSUE SPECIMEN FROM SKIN / Unknown 01/03/2018 01/04/2018 1:02 PM CDT Miscellaneous samples (specimen) TISSUE SPECIMEN FROM SKIN / Unknown 01/03/2018 01/04/2018 1:02 PM CDT Miscellaneous samples (specimen) TISSUE SPECIMEN FROM SKIN / Unknown 01/03/2018 01/04/2018 1:02 PM CDT Reji Jones MD LAB - PATHOLOGY/CYTO LOGY ORDERABLES DERMATOPATHOLOGY LABORATORY [facility] - Department of Dermatology [address] [place] [address] 5th Floor Lab [address] [phone] documented in this encounter Visit Diagnoses Not on filedocumented in this encounter
--- OUTSIDE RECORDS SUMMARY | 2024-10-10 13:28 | XMS_ITS | Encounter Summary ---
Author Organization [facility] Address [address] [place] [address] Care Team Providers Care Pulmonary Specialist Name Role Phone Unavailable Primary Care Provider Unavailabl e Encounter Details Date Type Department Care Team (Late st Contact Info) Description 07/08/2024 Lab Requisition [facility] - DermPath Lab [address] [place] [address] Diamond Cote MD [address] [facility] [address] [place] [address] Social History Tobacco Use Types Packs/Day Years Used Date Smoking Tobacco: Never Assessed Sex and Gender Information Value Date Recorded Sex Assigned at Not on file Gender Identity Not on file Sexual Orientation Not on file documented as of this encounter Plan of Treatment Not on file documented as of this encounter Procedures Procedure Name Priority Date/Time Associated Diagnosis Comments DERMATOPATHOLOGY Routine 07/08/2024 10:1 0 AM BALLET MASTER/MISTRESS documented in this encounter Results * DERMATOPATHOLOGY (07/08/2024 10:10 AM BALLET MASTER/MISTRESS) Case Report Dermatopathology Report Case: [id number] Authorizing Provider: Diamond Cote MD Collected: 07/08/2024 10:10 AM Ordering Location: [facility] - Received: 07/09/2024 09:38 AM DermPath Lab Pathologist: Mario Spears MD Specimen: Skin, right medial foot 4 3:54 PM BALLET MASTER/MISTRESS DERMATOPATHOLOGY LABORATORY Final Diagnosis Specimen A. SKIN, right medial foot: DERMAL SCAR; PRESENT AT MARGIN RESIDUAL MELANOCYTIC PROLIFERATION NOT IDENTIFIED (L90.5) (see microscopic description) 4 3:54 PM BALLET MASTER/MISTRESS DERMATOPATHOLOGY LABORATORY Clinical History BX proven FIDE prolif 4 3:54 PM [facility] DERMATOPATHOLOGY LABORATORY Gross Description Specimen [...] and submitted in cassette 2. Jar 0. 3:54 PM [facility] DERMATOPATHOLOGY LABORATORY Microscopic Description Specimen A. SKIN, right medial foot: There are fibroblasts and collagen bundles oriented parallel to the skin surface. There are elongated blood vessels, some of which are oriented perpendicular to the skin surface. No residual melanocytic proliferation is identified. The scar is present at the base of the specimen. 3:54 PM [facility] DERMATOPATHOLOGY LABORATORY Disclaimer An external and internal positive and negative controls are appropriate for the histochemical, immunohistochemical and immunofluorescence stain(s) in this case (if any), except where stated explicitly. The performance characteristics of the stain(s) cited in this report were developed and its performance characteristic determined by the Dermatopathology Laboratory at [facility], directed by Dr. Thierno Spears. These tests need not be, and therefore are not, approved by the [place] Food and Drug Administration. The tests are used for clinical purposes. Billing Codes Specimen Charges Stain Charges 39655 1 3:54 PM [facility] DERMATOPATHOLOGY LABORATORY Embedded Images 3:54 PM [facility] DERMATOPATHOLOGY LABORATORY Pathology/Cytolo gy TISSUE SPECIMEN FROM SKIN / Unknown 07/08/2024 10:10 AM BALLET MASTER/MISTRESS 07/09/2024 9:38 AM BALLET MASTER/MISTRESS Diamond Cote MD LAB - PATHOLOGY/CYT OLOGY ORDERABLES DERMATOPATHOLOGY LABORATORY [facility] - Department of Dermatology [address] [phone] documented in this encounter Visit Diagnoses Not on filedocumented in this encounter
--- OUTSIDE RECORDS SUMMARY | 2024-10-10 13:29 | XMS_ITS | Encounter Summary ---
Author Organization [facility] Address [address] [place] [address] Phone Care Team Providers Care Dental Chairside Assistant Name Role Phone Adry Linder MD Primary Care Provider + Joe Judge MD Unavailable [phone] Rylan Conn MD Unavailable [phone] Luz Garner MD Unavailable [phone] Encounter Details Date Type Department Care Team (Late st Contact Info) Description 01/09/2022 Orders Only [facility] Scanning, Provider Social History Tobacco Use Types Packs/Day Years Used Date Smoking Tobacco: Never Smokeless Tobacco: Never Alcohol Use Standard Drinks/Week Comments Yes 0 (1 standard drink = 0.6 oz pur e alcohol) rare AUDIT-C Answer Date Recorded Q1: How often do you have a drink containing alc ohol? Monthly or less 06/28/2021 Q2: How many drinks containi ng alcohol do you have on a typical day when you are drinking? 1 or 2 06/28/2021 Q3: How often do you have si x or more drinks on one occasion? 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 Gender Identity Not on file Sexual Orientation Not on file documented as of this encounter Plan of Treatment Not on file documented as of this encounter Procedures Procedure Name Priority Date/Time Associated Diagnosis Comments SCAN - LABS 01/09/2022 documented in this encounter Results * SCAN - LABS (01/09/2022) us Provider Scanning Final Result documented in this encounter Visit Diagnoses Not on filedocumented in this encounter Care Teams Dental Chairside Assistant Relationship Specialty Start Date End Date Adry Linder MD [address] [place] [address] PCP - General 08/28/19 Joe Judge MD [address] [place] [address] Consulting Physician Urology 06/07/21 Rylan Conn MD [address] [facility] [phone] [place] [address] Surgeon Colon and Rectal Surgery 09/26/22 Luz Garner MD [address] [place] [address] Helicopter Pilot Gastroenterology 09/26/22 documented as of this encounter
--- OUTSIDE RECORDS SUMMARY | 2024-10-10 13:29 | XMS_ITS | Encounter Summary ---
Author Organization [facility] Address [address] [place] [address] Phone Care Team Providers Care Data Entry Clerk Name Role Phone Adry Linder MD Primary Care Provider + Joe Judge MD Unavailable Rylan Conn MD Unavailable [phone] Luz Garner MD Unavailable [phone] Encounter Details Date Type Department Care Team (Late st Contact Info) Description 02/22/2023 Orders Only [facility] Scanning, Provider Social History Tobacco Use Types Packs/Day Years Used Date Smoking Tobacco: Never Smokeless Tobacco: Never Alcohol Use Standard Drinks/Week Comments Yes 0 (1 standard drink = 0.6 oz pur e alcohol) rare AUDIT-C Answer Date Recorded Q1: How often do you have a drink containing alc ohol? Monthly or less 09/15/2022 Q2: How many drinks containi ng alcohol do you have on a typical day when you are drinking? 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 Gender Identity Not on file Sexual Orientation Not on file documented as of this encounter Plan of Treatment Not on file documented as of this encounter Procedures Procedure Name Priority Date/Time Associated Diagnosis Comments SCAN - LABS 02/22/2023 documented in this encounter Results * SCAN - LABS (02/22/2023) us Provider Scanning Final Result documented in this encounter Visit Diagnoses Not on filedocumented in this encounter Care Teams Data Entry Clerk Relationship Specialty Start Date End Date Adry Linder MD [address] [place] [address] PCP - General 08/28/19 Joe Judge MD [address] [place] [address] Consulting Physician Urology 06/07/21 Rylan Conn MD [address] [facility] [phone] [place] [address] Surgeon Colon and Rectal Surgery 09/26/22 Luz Garner MD [address] [place] [address] Copywriting Intern Gastroenterology 09/26/22 documented as of this encounter
--- OUTSIDE RECORDS SUMMARY | 2024-10-10 13:29 | XMS_ITS | Referral Summary ---
Author Organization [facility] Address [address] [place] [address] Care Team Providers Care Chair Maker Name Role Phone Adry Linder MD Primary Care Provider + Joe Judge MD Unavailable [phone] Rylan Conn MD Unavailable [phone] Luz Garner MD Unavailable [phone] Encounters Date Type Department Care Team Description 10/08/2024 2:30 PM RIB CLOTH KNITTER Office Visit [facility] Gastroenterology [address] [facility] Medicine [address] [place] [address] [place] [address] Liss Johnson MD Ulcerative pancolitis with complication (CMS/HCC) (HCC) (Primary Dx); High risk medications (not anticoagulants) long-term use; Routine health maintenance; Other fatigue; Jose Roberto's disease from Last 3 Months Allergies Active Allergy Reactions Criticality Noted Date Comments Sulfamethoxazole-Trimethoprim Swelling Medium 2021 Oxycodone Hypotension High 07/19/2023 Venom-Honey Bee Anaphylaxis High 07/12/2012 Medications Lactobacillus acidophilus (PROBIOTIC ORAL)Indication s:GI health Take 1 tablet by mouth daily Active UNABLE TO FINDIndications :supplement Take 1 each by mouth every morning EHT brain supplement qd Active cetirizine (ZyrTEC) 10 mg tabletIndicatio ns:Allergic Rhinitis Take 1 tablet (10 mg total) by mouth every morning 0 9 Active fluticasone propionate (FLONASE) 50 mcg/actuation nasal sprayIndication s:Allergic Rhinitis Administer 1 spray into each nostril daily Active multivitamin capsuleIndicati ons:Vitamin Deficiency Prevention Take 1 capsule by mouth every morning Active collagen, bovine, 100 % powderIndicatio ns:supplement Take 1 Dose by mouth every morning Active ibuprofen (ADVIL,MOTRIN) 600 mg tabletIndicatio ns:Pain Take 1 tablet (600 mg total) by mouth every 8 (eight) hours 30 tablet 3 Active Additional Information Patient not taking.Informant: Self, Reported on 04/07/2024 psyllium seed, sugar, powderIndicatio ns:constipation Take 1 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 Active mesalamine (LIALDA) 1.2 gram EC tabletIndicatio ns:Ulcerative Colitis Take 1 tablet (1.2 g total) by mouth daily with breakfast 30 tablet 11 4 025 Active Additional Information Patient not taking.Reported on 10/22/2023 diphenoxylate-a tropine (LOMOTIL) 2.5-0.025 mg per tabletIndicatio ns:diarrhea Take 2 tablets by mouth 2 (two) times a day 180 tablet 1 4 Active cefdinir (OMNICEF) 300 mg capsule Take 1 capsule (300 mg total) by mouth 2 (two) times a day 180 capsule 3 5 Active cefdinir (OMNICEF) 300 mg capsule Take 1 capsule (300 mg total) by mouth 2 (two) times a day 180 capsule 4 025 Discontin ued(Reord er) Active Problems Problem Noted Date Diagnosed Date 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 Since she has daily diarrhea, taking at least some doses on a scheduled basis should help Ulcerative pancolitis with complication (CMS/HCC ) 03/18/2019 Overview (04/07/2024): Year of diagnosis: 05/2018. Year symptoms began: 2000 (age 16). Distribution: colonic (L2) Pancolitis Extraintestinal manifestations: none. Complications: none. Prior treatments: Prednisone, Lialda (no response), Delzicol (no response), Xeljanz (07/2019-03/2020, mucosal improvement but no symptoms change with discontinuation in 03/2020, stopped out of concern for risks), Entyvio every 4 weeks (Started 01/03/2019, escalated to monthly in 06/2019 due to persistent disease activity 05/2019 flex, used in combination with Xeljanz 07/2019-03/2020, monotherapy 03/2020-10/22/2020, discontinued due to incomplete remission/elevated calprotectin), Stelara 11/2020-04/2021 failed to respond). Current treatment: Remicade (started 05/04/21). Prior surgeries: none. Endoscopies: Colonoscopy 05/2018 showed pancolitis and an inflammatory polyp in the descending colon. Colon mucosa biopsies showed prominent lymphoid aggregates and polyp was an inflammatory polyp. Colonoscopy 12/2018 (on mesalamine and prednisone) - The examined portion of the ileum was normal. Moderately active (Peralta Score 2) pancolitis ulcerative colitis. Flex sig 05/2019 (After 4 months of Entyvio) - Moderately active (Peralta Score 2) pancolitis ulcerative colitis, unchanged since the last examination. Flex sig 08/2019 (After 4 monthly doses of Entyvio and 2 months of Xeljanz 10mg BID) - Preparation of the colon was poor. Moderately active (Peralta Score 2) ulcerative colitis, unchanged since the last examination. Flex sig 01/2020 (After 8 months on monthly Entyvio and 7 months on Xeljanz) showed mild (Peralta Score 1) UC with inactive (Peralta Score 0) proctitis ulcerative colitis. Imaging: MRE 01/2019 showed diffusely thick-walled and relatively featureless colon, consistent with ulcerative colitis. Prominent nonspecific ileocolic lymph nodes are likely reactive; normal small bowel. Assessment & Plan (03/26/2021 8:59 AM CDT): Unfortunately patient's disease has been quite refractory and she seems to have had no improvement on Stelara. In fact she feels that her symptoms are getting progressively worse the further she is out from Entyvio. She had no improvement after her 03/02/2021 2nd maintenance dose. She states that her symptoms and quality of life were dramatically better on Entyvio. Looking at the records she initially did not have a robust response to Entyvio endoscopically but felt somewhat better. It was not until she was on Xeljanz that there was endoscopic improvement. Because of this Dr. Plummer would like her to stop Stelara and restart Xeljanz for the next 3 months than repeat her colonoscopy on Xeljanz to determine if this is the most important factor in managing her disease. If she is able to achieve dramatic improvement on Xeljanz for remains concerned about the side effects, we could consider transitioning her to Upadacitinib when this becomes available. We also discussed the possibility of thiopurines and anti TNF therapies like Remicade. As the patient is concerned about long-term side effects, at this time we do not feel Zeposia is appealing. As is heterozygous for TPMT, should we consider thiopurines this would need very close scrutiny. The patient is asked to submit a calprotectin now for tracking purposes Plan 1. Stop Stelara now given primary nonresponse 2. Restart Xeljanz extended-release 22 mg daily for the next 3 months 3. Repeat colonoscopy on Xeljanz to determine mucosal response 4. If patient fails to respond to Xeljanz, consider TNF with thiopurine or returned to Entyvio with thiopurines 5. If patient is in near remission on Xeljanz continue with possible transition to Upadacitinib when this becomes available Iron deficiency anemia due to chronic blood loss 12/31/2018 Overview (12/31/2018): Longstanding problem associated with metomenorrhagia since the of her 3rd child and colonic loss. Reports intolerance of iron sulfate secondary to abdominal pain and poor absorption Assessment & Plan (03/26/2021 9:11 AM CDT): Unfortunately patient did not have any improvement with her last 3 iron infusions. She will likely need additional iron or different formulation since Venofer x3 did not improve her hemoglobin at all Assessment & Plan (12/31/2018 5:25 PM CDT): 1. Submit for iron infusions 2. Trial of oral iron gluconate while waiting for infusions to get approved 3. We hope that there will be a progressive benefit from her recent uterine ablation High risk medications (not anticoagulants) long- term use 12/31/2018 Assessment & Plan (04/28/2020 9:08 AM CDT): High risk medications: As with all patients taking immunosuppressive biologic therapies or immunomodulators, we provide a balanced discussion on benefits and risks associated with these medications. Regarding potential risks, we employ a strategy of active monitoring for medication related toxicities. Toxicities and risks discussed in monitoring include, but are not limited to the following: infusion reactions including anaphylaxis; bacterial, viral and fungal infections; pancreatitis; heart failure; neurologic reactions; hematologic and solid tumors malignancy including an increased risk of lymphoma and skin cancers; bone marrow toxicity including anemia, lymphopenia and immune suppression; hepatotoxicity and potential renal toxicity. Patients are actively assessed through routine laboratories (Q4 month or more frequently) which I personally review and are encouraged to contact us with any questions regarding new symptom development. Healthcare maintenance 12/31/2018 Ulcerative colitis 12/05/2018 Assessment & Plan (04/28/2020 9:08 AM CDT): Byrnes ulcerative colitis diagnosed in 2017 on Entyvio every 4 weeks. Xeljanz recently added with improvement in appearance of inflammation on flexible sigmoidoscopy in January. Was feeling quite well so went off xeljanz about a month ago due to symptom improvement and concern for potential side effects. Last week started to have some urgency of stool and one episode of hematocheizia. This has since resolved. She is having 4 stools daily on average. Has restarted imodium. Wants to avoid xeljanz. -continue entyvio -will check fecal calprotectin -if elevated would consider therapy change likely to stelara -continue imodium -continue safety labs -she is up to date on recommended vaccinations -continue every 6 month clinic follow up Assessment & Plan (12/23/2018 9:00 PM CDT): She continues to have a heavy symptom burden despite therapeutic doses of delzicol. She also appears to have had an incomplete response to steroids (possible steroid refractory disease as she had significant symptoms despite high dose PO prednisone). It is unclear if she truly has ulcerative colitis or if her ongoing symptoms are the result of as yet undiagnosed and untreated Crohn's disease with small bowel involvement. At this time, restaging her disease both endoscopically and radiographically is indicated. We will perform a colonoscopy including biopsies of the terminal ileum and colon as well as MRE to evaluate the small bowel. We will obtain updated labs today including TSPOT and TPMT in preparation for likely initiation of biologic therapy, the choice of which will depend on the results of the above diagnostic testing. We will also check celiac serologies. Health Maintenance: Vaccinations Flu: Annual flu vaccination recommended Pneumonia: She will need pneumococcal vaccination if she ultimately starts biologic therapy. Will address this at her next visit. 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 Colon: Colonoscopy as above. She does not meet high risk colon cancer surveillance as yet. 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 Bone Health DEXA: She has recently had significant steroid exposure. Will plan to obtain DEXA once she has been steroid free for 6 months. Pilonidal cyst 12/23/2014 Overview (12/09/2016): Pilonidal cyst Palpitations 07/23/2013 Overview (12/31/2018): The patient reports that she was born with a heart murmur and had an episode of atrial flutter near . Indicates that electrolyte imbalances tend to increase her frequency of palpitations Resolved Problems Problem Noted Date Diagnosed Date Resolved Date Ileostomy in place ([facility]) 05/29/2023 01/11/2024 Ulcerative colitis, acute, u nspecified complication 03/22/2023 04/07/2024 Ulcerative colitis with complication 06/12/2019 04/28/2020 Overview (06/12/2019): Added automatically from request for surgery [id number] Ulcerative pancolitis with c omplication ([facility]) 12/23/2018 03/16/2019 Overview (12/31/2018): IBD History: Diagnosis: Ulcerative colitis Year of Diagnosis: 05/2018 Year Symptoms Began: 2000 (age 16) Phenotype: n/a Distribution: panulcerative Complications: none Extraintestinal manifestations: none Perianal disease: n/a Previously Failed Treatments: Prednisone, Lialda Current Treatment: Delzicol Surgeries (Date, type): None Endoscopies (Date, findings, path): Colonoscopy 05/2018 showed pancolitis and an inflammatory polyp in the descending colon. Colon mucosa biopsies showed prominent lymphoid aggregates and polyp was an inflammatory polyp. Imaging: None Assessment & Plan (12/31/2018 5:20 PM CDT): Given the patient's persistent disease activity of moderate severity despite Delzicol, we believe she needs to be escalated to more intense therapy. Given her youth, exposure to sick individuals at work, and strong family history of nonmelanoma skin cancer and its response rate in bionaive individuals, we believe the safest and most promising long-term therapy for her would be Entyvio. Monico or Juan Manuel would have greater risk of skin cancer and infection. 1. Submit for Entyvio either at [facility] or [facility] 2. Bridge patient with Entocort/Uceris for 6 weeks 3. Patient can use Imodium low-dose to reduce stool frequency Immunizations Name Administration Dates Next Due Influenza, Quadrivalent, Split, Intramuscular Influenza, Quadrivalent, Spl it, Preservative Free, Intramuscular 07/02/2021 Influenza, Unspecified 05/04/2023 Pneumococcal Conjugate PCV 13 12/31/2018 Pneumococcal Polysaccharide PPV23 04/07/2019 Tdap 02/23/2012 Social History Tobacco Use Types Packs/Day Years Used Date Smoking Tobacco: Never Smokeless Tobacco: Never Tobacco Cessation:Counseling Given: Not Answered Alcohol Use Standard Drinks/Week Comments Yes 0 (1 standard drink = 0.6 oz pur e alcohol) rare OASIS [id number]: Social Isolation Answer Da te Recorded Frequency of experiencing loneliness or isolatio n Never 03/29/2023 AUDIT-C Answer Date Recorded Q1: How often do you have a drink containing alc ohol? Monthly or less 05/09/2024 Q2: How many drinks containi ng alcohol do you have on a typical day when you are drinking? 1 or 2 05/09/2024 Q3: How often do you have si x or more drinks on one occasion? Never 05/09/2024 Personal Safety Answer Date Recorded Have you ever been in or are you currently in a harmful physical or emotional relationship or is someone making you feel afraid or unsafe? Denies 05/09/2024 Comments No Sex and Gender Information Value Date Recorded Sex Assigned at Not on file Legal Sex Female 7:35 PM RIB CLOTH KNITTER Gender Identity Not on file Sexual Orientation Not on file Last Filed Vital Signs Vital Sign Reading Time Taken Comments Blood Pressure 130/78 10/08/2024 2:41 PM RIB CLOTH KNITTER Pulse 95 10/08/2024 2:41 PM RIB CLOTH KNITTER Temperature 36.7 C (98.1 F) 10/08/2024 2:41 PM RIB CLOTH KNITTER Respiratory Rate 16 05/09/2024 10:20 AM CDT Oxygen Saturation 99% 05/09/2024 10:20 AM CDT Inhaled Oxygen Concentration - - Weight 84.1 kg (185 lb 6.4 oz) 10/08/2024 2:41 P M RIB CLOTH KNITTER Height 170.2 cm (5' 7 ) 10/08/2024 2:41 PM RIB CLOTH KNITTER Body Mass Index 29.04 10/08/2024 2:41 PM RIB CLOTH KNITTER Plan of Treatment Not on file Procedures Procedure Name Priority Date/Time Associated Diagnosis Comments PAP AND HPV, REFLEX TO HPV GENOTYPES Routine 08/09/2023 4:53 PM RIB CLOTH KNITTER Cervical cancer screening from Last 3 Months or Most Recently Relevant to Health Maintenance Results * Pap and HPV, reflex to HPV Genotypes (08/09/2023 4:53 PM RIB CLOTH KNITTER) Clinical indication Comment [facility] - 01 Comment:NEGATIVE FOR INTRAEP ITHELIAL LESION OR MALIGNANCY. Specimen adequacy: Comment [facility] - 01 Comment: Satisfactory for evaluation. Endocervical and/or squamous metaplastic cells (endocervical component) are present. Clinician provided ICD10 Comment [facility] - 01 Comment:Z12.4 Performed by Comment [facility] - 01 Comment:Andrew Cleveland totechnologist (ASCP) . . [facility] - 01 Note: Comment [facility] - 01 Comment: The Pap smear is a screening test designed to aid in the detection of premalignant and malignant conditions of the uterine cervix. It is not a diagnostic procedure and should not be used as the sole means of detecting cervical cancer. Both false-positive and false-negative reports do occur. Test methodology Comment [facility] - 01 Comment: This liquid based ThinPrep(R) pap test was screened with the use of an image guided system. HPV Aptima Negative Negative [facility] 02 Comment: This nucleic acid amplification test detects fourteen high-risk HPV types (16,18,31,33,35,39,45,51,52,56,58,59,66,68) without differentiation. HPV Genotype Reflex Comment [facility] - Comment:Criteria not met, HP V Genotype not performed. Thin prep 08/09/2023 4:53 PM RIB CLOTH KNITTER 08/09/2023 Narrative [facility] - 08/13/2023 4:10 PM RIB CLOTH KNITTER Performed at: - [facility] [id number] Automatic Spinning Lathe Setter: Ltaasha Peterson MD, Phone: [phone] Performed at: - [facility] [id number] Automatic Spinning Lathe Setter: Latasha Peterson MD, Phone: [phone] Specimen Comment: Source.............Cervix;Endocervix Specimen Comment: No. of containers..01 ThinPrep Vial us Diana Dyson MD LAB CYTOLOGY ORDERABLES Final Result [facility] - 01 [facility] 02 from Last 3 Months or Most Recently Relevant to Health Maintenance Insurance [facility] CHO[facility] PLUS [facility] CHO[facility] PLUS [facility] CHOICE PLUS [employer] OPEN ACCESS [facility] Advance Directives For more information, please contact: [phone] * Full Code (Latest Code Status on File) Date Activated Date Inactivated Comments 05/09/2024 9:20 AM 05/09/2024 3:02 PM * Full Code Date Activated Date Inactivated Comments 10/15/2023 8:59 AM 10/15/2023 2:40 PM * Full Code Date Activated Date Inactivated Comments 07/19/2023 11:06 AM 07/21/2023 6:38 PM * Full Code Date Activated Date Inactivated Comments 06/01/2023 7:21 AM 06/01/2023 12:42 PM * Full Code Date Activated Date Inactivated Comments 03/22/2023 11:49 AM 03/26/2023 7:04 PM Care Teams Chair Maker Relationship Specialty Start Date End Date Adry Linder MD [address] [place] [address] PCP - General 08/28/19 Joe Judge MD [address] [place] [address] Consulting Physician Urology 06/07/21 Rylan Conn MD [address] [facility] [id number] [place], [place] [id number] Surgeon Colon and Rectal Surgery 09/26/22 Luz Garner MD [address] [place], [place] [id number] Design Technician Gastroenterology 09/26/22
--- OUTSIDE RECORDS SUMMARY | 2024-10-10 13:29 | XMS_ITS | Clinical Summary ---
Author Organization [facility] Address [facility]ly [facility] [place] [address] Care Team Providers Care Oenologist Name Role Phone Phyllis Fuentes MD Primary Care Provider Social History Tobacco Use Types Packs/Day Years Used Date Smoking Tobacco: Never Assessed Comments Unknown Sex and Gender Information Value Date Recorded Sex Assigned at Not on file Legal Sex Female 8:02 PM CDT Gender Identity Not on file Sexual Orientation Not on file Plan of Treatment Health Maintenance Due Date Last Done Comments Cervical Cancer Screening Pa p Smear (Age 30 to 64) Every 3 Years 1986 Annual Physical 1989 Hepatitis C 01/07/2004 DTaP, Tdap and Td Vaccines ( 1 - Tdap) 2005 Hepatitis B Vaccines (1 of 3 - 19+ 3-dose series) 2005 Cervical Cancer Screening Pa p with HPV Testing (Age 30 to 64) Every 5 Years 01/07/2016 Cervical Cancer Screening with HPV 01/07/2016 COVID-19 Vaccine (2023-2 5 season) 2024 Influenza Adult (#1) 2024 HPV Vaccines Aged Out No longer eligi ble based on patient's age to complete this topic Meningococcal B Vaccine Aged Out No l onger eligible based on patient's age to complete this topic Meningococcal Vaccine Aged Out No kaye pilar eligible based on patient's age to complete this topic Pneumococcal Vaccine: Pediat rics (0 to 5 Years) and At-Risk Patients (6 to 64 Years) Aged Out No longer eligible b ased on patient's age to complete this topic RSV Immunizations Under 20 Months Aged Out No longer eligible based on patient's age to complete this topic Care Teams Oenologist Relationship Specialty Start Date End Date Phyllis Fuentes MD PCP - General 3/9/12
--- OUTSIDE RECORDS SUMMARY | 2024-10-10 13:29 | XMS_ITS | Clinical Summary ---
Author Organization [facility] Address [address] [place] [address] Care Team Providers Care Reinforced Steel Placing Supervisor Name Role Phone Adry Linder MD Primary Care Provider + Joe Judeg MD Unavailable [phone] Rylan Conn MD Unavailable [phone] Luz Garner MD Unavailable [phone] Allergies Active Allergy Reactions Criticality Noted Date [...] powderIndicatio ns:constipation Take 1 Scoop by mouth bobbin presser before breakfast Active mesalamine (LIALDA) 1.2 gram [...] basis should help Ulcerative pancolitis with complication ([facility] ) 03/18/2019 Overview (04/07/2024): Year of diagnosis: [...] Surveillance Skin: Annual derm exam (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 Colon: Colonoscopy as above. She does not meet high risk colon cancer surveillance as yet. 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 Xeljanz or Humira would have greater risk of skin cancer and infection. 1. Submit for Entyvio either at [facility] or [facility] 2. Bridge patient with Entocort/Uceris for 6 weeks 3. Patient can use Imodium low-dose to reduce stool frequency Encounters Date Type Department Care Team Description 10/08/2024 2:30 PM COMMERCIAL DOOR INSTALLER Office Visit [facility] Gastroenterology [address] 12th [place] [address] [place] [address] Liss Johnson MD Ulcerative pancolitis with complication (CMS/HCC) (HCC) (Primary Dx); High risk medications (not anticoagulants) long-term use; Routine health maintenance; Other fatigue; Jose Roberto's disease from Last 3 Months Immunizations Name Administration Dates Next Due Influenza, Quadrivalent, Split, Intramuscular Influenza, Quadrivalent, Spl it, Preservative Free, Intramuscular 07/02/2021 Influenza, Unspecified 05/04/2023 Pneumococcal Conjugate PCV 13 12/31/2018 Pneumococcal Polysaccharide PPV23 04/07/2019 Tdap 02/23/2012 Surgical History Surgery Date Site/Laterality Comments WISDOM TOOTH EXTRACTION PILONIDAL CYSTECTOMY ENDOMETRIAL ABLATION 11/01/2018 - 12/01/2018 COLONOSCOPY UPPER GASTROINTESTINAL ENDOSCOPY COLECTOMY 09/03/2020 - 09/02/2021 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 Family History Medical History Relation Name Comments Colon polyps Father Skin cancer Father Colon cancer Maternal Grandfather Breast cancer Maternal Grandmother Skin cancer Mother Heart disease Paternal Grandmother Anesthesia problems Neg Hx Relation Name Status Comments Father Maternal Grandfather Maternal Grandmother Alive Mother Paternal Grandmother Social History Tobacco Use Types Packs/Day Years [...] on file Legal Sex Female 7:35 PM COMMERCIAL DOOR INSTALLER Gender Identity Not on file Sexual Orientation Not on file Obstetrics History Last Filed Vital Signs Vital Sign Reading Time Taken Comments Blood Pressure 130/78 10/08/2024 2:41 PM COMMERCIAL DOOR INSTALLER Pulse 95 10/08/2024 2:41 PM COMMERCIAL DOOR INSTALLER Temperature 36.7 C (98.1 F) 10/08/2024 2:41 PM COMMERCIAL DOOR INSTALLER Respiratory Rate 16 05/09/2024 10:20 AM CDT Oxygen Saturation 99% 05/09/2024 10:20 AM CDT Inhaled Oxygen Concentration - - Weight 84.1 kg (185 lb 6.4 oz) 10/08/2024 2:41 P M COMMERCIAL DOOR INSTALLER Height 170.2 cm (5' 7 ) 10/08/2024 2:41 PM COMMERCIAL DOOR INSTALLER Body Mass Index 29.04 10/08/2024 2:41 PM COMMERCIAL DOOR INSTALLER Plan of Treatment Health Maintenance Due Date Last Done Comments Depression Screening 1986 Hepatitis C Screening 1986 Varicella Vaccines (1 of 2 - 13+ 2-dose series) 1999 Hepatitis B Screening 01/07/2004 DTaP/Tdap/Td Vaccine (2 - Td or Tdap) 02/22/2022 02/23/2012 Covid-19 Vaccine ( season) 2024 09/10/2021, 09/12/2020, 08/22/2020 Influenza Vaccine (#1) 2024 , 07/02/2021, 06/20/2019, Additional history exists Cervical Cancer Screening 08/09/2024 08/09/2023 Regular Well Visit/Exam 18-64 08/09/2024 08/09/2023 Pneumococcal vaccine <65 Aged Out 04/07/2019, 12/04 No longer eligible based on patient's age to complete this topic HPV Vaccines Aged Out No longer eligi ble based on patient's age to complete this topic Procedures Procedure Name Priority Date/Time Associated Diagnosis Comments PAP AND HPV, REFLEX TO HPV GENOTYPES Routine 08/09/2023 4:53 PM COMMERCIAL DOOR INSTALLER Cervical cancer screening from Last 3 Months or Most Recently Relevant to Health Maintenance Results * Pap and HPV, reflex to HPV Genotypes (08/09/2023 4:53 PM COMMERCIAL DOOR INSTALLER) Clinical indication Comment [facility] - 01 Comment:NEGATIVE [...] differentiation. HPV Genotype Reflex Comment [facility] - 01 Comment:Criteria not met, HP V Genotype not performed. Thin prep 08/09/2023 4:53 PM COMMERCIAL DOOR INSTALLER 08/09/2023 Narrative [facility] - 08/13/2023 4:10 PM COMMERCIAL DOOR INSTALLER Performed at: - [facility] [id number] Pasteurizer: Latasha Peterson MD, Phone: [phone] Performed at: - [address] [id number] Pasteurizer: Latasha Peterson MD, Phone: [phone] Specimen Comment: Source.............Cervix;Endocervix Specimen Comment: No. of containers..01 ThinPrep Vial Diana Dyson MD LAB CYTOLOGY ORDERABLES Final Result [facility] - 01 [facility] [place] 02 from Last 3 Months or Most Recently Relevant to Health Maintenance Insurance [facility] CHOICE [facility] HMO/PPO Address: [address] [address] [place] [address] [employer] OPEN ACCESS [facility] CHOICE PLUS [facility] HMO/PPO Address: [address] [address] [place] [address] [facility] CHOICE [facility]US [facility] H[facility]/PPO Address: [place] [address] [facility] CHOICE [facility]/PPO Address: [place] [address] [employer] OPEN ACCESS [facility] H[facility]/PPO Address: [facility] [id number] [place] [id number] Advance Directives For more information, please contact: [phone] * Full Code (Latest Code Status on [...] 11:49 AM 03/26/2023 7:04 PM Care Teams Reinforced Steel Placing Supervisor Relationship Specialty Start Date End Date Adry Linder MD [address] [place] [address] PCP - General 08/28/19 Joe Judge MD [address] [place] [address] Consulting Physician Urology 06/07/21 Rylan Conn MD [address] [facility] [phone] [place], [place] [id number] Surgeon Colon and Rectal Surgery 09/26/22 Luz Garner MD [address] [place], [place] [id number] Tool Profiling Machine Set Up Operator Gastroenterology 09/26/22
[2024-10-10 14:00] LABS: Basophils Absolute Auto 0.1 K/mm3 (0.0-0.1); Basophils Percent Auto 0.6 % (0.2-1.2); Eosinophils Absolute Auto 0.1 K/mm3 (0-0.3); Eosinophils Percent Auto 0.5 % (0-4.4); Hematocrit 33.6 % (37.0-47.0); Hemoglobin 10.4 g/dL (12.0-15.0); Immature Granulocyte Absolute 0.01 K/mm3 (0.00-0.031); Immature Granulocyte Percent A 0.1 % (0-0.5); Lymphocytes Absolute Auto 3.57 K/mm3 (0.9-3.2); Lymphocytes Percent Auto 38.5 % (18.3-44.2); Mean Corpuscular Hemoglobin 25.1 pg (26-34); Mean Corpuscular Volume 81.2 fl (80-100); Mean Platelet Volume 10.2 fl (7.4-10.4); Monocytes Absolute Auto 0.6 K/mm3 (0.1-0.6); Monocytes Percent Auto 6.9 % (2.6-8.5); Neutrophils Absolute Auto 4.9 K/mm3 (1.3-6.7); Neutrophils Percent Auto 53.4 % (45.5-73.1); Platelet Count Result 353 k/mm3 (150-375); Red Blood Count 4.14 M/mm3 (4.2-5.4); Red Cell Distribution Width 15.4 % (11.5-14.5); White Blood Count 9.3 K/mm3 (4.5-10.0)
[2024-10-10 14:06] LABS: Alanine Aminotransferase 17 U/L (6-35); Albumin Level 4.2 g/dL (3.5-5.1); Alkaline Phosphatase 67 U/L (38-126); Anion Gap 10 mmol/L (4-12); Aspartate Amino Transferase 14 U/L (14-36); Bilirubin,Total 0.5 mg/dL (0.2-1.3); Blood Urea Nitrogen 8 mg/dL (7-17); Calcium 9.3 mg/dL (8.4-10.2); Carbon Dioxide 27 mmol/L (22-30); Chloride 101 mmol/L (98-107); Estimated Glomerular Filt Rate > 60; Glucose 83 mg/dL (65-110); Potassium 3.5 mmol/L (3.4-5.0); Sodium 138 mmol/L (137-145)
[2024-10-10 14:21] LABS: Iron 35 ug/dL (37-170)
[2024-10-10 14:31] LABS: Percent Iron Saturation 11 % (20-50)
[2024-10-10 15:12] LABS: Folic Acid 7.3 ng/mL (2.76->20)
[2024-10-10 15:31] LABS: Free T4 Free Thyroxine 1.03 ng/dL (0.78-2.19); Vitamin D 25 Hydroxy 43.4 ng/mL
== END 2024-10-10 13:18 | disposition home or self-care (01) ==
PROVIDERS: PCP Physician Assistant
DX: K51.019 Ulcerative (chronic) pancolitis with unspecified complications (principal); Z00.00 Encounter for general adult medical examination without abnormal findings; E06.9 Thyroiditis, unspecified; R53.83 Other fatigue
CPT/HCPCS: 36415; 80053; 82306; 82607; 82728; 82746; 83540; 83550; 84439; 84443; 85025

== ENCOUNTER 2025-03-20 12:52 | Outpatient (CLI) | payer OTHER, SELFPAY ==
--- OUTSIDE RECORDS SUMMARY | 2025-03-20 12:55 | XMS_ITS | Encounter Summary ---
Author Organization [facility] Address [address] [place] [address] Care Team Providers Care Salon Professional Name Role Phone Unavailable Primary Care Provider Unavailabl e Encounter Details Date Type Department Care Team (Late st Contact Info) Description 04/03/[address] 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 Gender Identity Not on file Sexual Orientation Not on file documented as of this encounter Plan of Treatment Not on file documented as of this encounter Procedures Procedure Name Priority Date/Time Associated Diagnosis Comments DERMATOPATHOLOGY Routine 04/02/2018 12:0 0 AM CDT documented in this encounter Results * DERMATOPATHOLOGY (04/02/2018 12:00 AM CDT) Case Report Dermatopathology Report Case: [id number] Authorizing Provider: Reji Jones MD Collected: 04/02/2018 12:00 AM Pathologist: Mario Spears MD Received: 04/03/2018 11:51 AM Specimens: A) - Skin, right lateral posterior hip above buttock B) - Skin, right lower breast C) - Skin, left lateral thigh below buttock D) - Skin, left medial lower leg above ankle 8 4:09 PM CDT DERMATOPATHOLOGY LABORATORY Final Diagnosis [...] WITH ARCHITECTURAL DISORDER) (D22.72) 8 4:09 PM [facility] DERMATOPATHOLOGY LABORATORY at 1609 CDT Clinical History A-D: R/O Dys nevus. 8 4:09 PM [facility] DERMATOPATHOLOGY LABORATORY Gross Description Specimen A: Received is one formalin filled container labeled with the patient's name and designated right lateral posterior hip above buttock. The specimen consists of a shave biopsy measuring 29a3w0rm. Jar 0. Specimen B: Received is one formalin filled container labeled with the patient's name and designated right lower breast. The specimen consists of a shave biopsy measuring 46a9l5uk. Jar 0. Specimen C: Received is one formalin filled container labeled with the patient's name and designated left lateral thigh below buttock. The specimen consists of a shave biopsy measuring 3e0p7lk. Jar 0. Specimen D: Received is one formalin filled container labeled with the patient's name and designated left medial lower leg above ankle. The specimen consists of a shave biopsy measuring 32p5u1yb. Jar 0. 8 4:09 PM T DERMATOPATHOLOGY LABORATORY Microscopic Description Specimen [...] Original and deeper sections were reviewed. (Compound Frnatz's Nevus or Compound Dysplastic Nevus) 8 4:09 PM T DERMATOPATHOLOGY LABORATORY Disclaimer An external and internal positive and negative controls are appropriate for the histochemical, immunohistochemical and immunofluorescence stain(s) in this case (if any), except where stated explicitly. The performance characteristics of the stain(s) cited in this report were developed and its performance characteristic determined by the Dermatopathology Laboratory at [facility]. These tests need not be, and therefore are not, approved by the [place] Food and Drug Administration. The tests are used for clinical purposes. Billing Codes Specimen Charges Stain Charges 08331 68220 13676 94031 1 1 1 1 94163 1 8 4:09 PM CDT DERMATOPATHOLOGY LABORATORY [...] / Unknown 04/02/2018 04/03/2018 11:51 AM CDT us Reji Jones MD LAB - PATHOLOGY/CYTOLOGY ORD ERABLES Final Result DERMATOPATHOLOGY LABORATORY [facility] - Department of Dermatology [address] [place] [address], [address]th [place] [address], [facility] [phone] documented in this encounter Visit Diagnoses Not on filedocumented in this encounter
--- OUTSIDE RECORDS SUMMARY | 2025-03-20 12:55 | XMS_ITS | Encounter Summary ---
Author Organization [facility] Address [address] [place] [address] Care Team Providers Care A P Manager Name Role Phone Unavailable Primary Care Provider Unavailabl e Encounter Details Date Type Department Care Team (Late st Contact Info) Description 01/04/2018 Lab Requisition [facility] Care DermPath Lab 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 Gender Identity Not on file Sexual Orientation Not on file documented as of this encounter Plan of Treatment Not on file documented as of this encounter Procedures Procedure Name Priority Date/Time Associated Diagnosis Comments DERMATOPATHOLOGY Routine 01/03/2018 12:0 0 AM CDT documented in this encounter Results * DERMATOPATHOLOGY (01/03/2018 12:00 AM CDT) Case Report Dermatopathology Report Case: [id number] Authorizing Provider: Reji Jones MD Collected: 01/03/2018 12:00 AM Pathologist: Keara Wood MD Received: 01/04/2018 01:02 PM Specimens: A) - Skin, left medial breast B) - Skin, epigastrium C) - Skin, right under right jawline D) - Skin, right lat abdomen 8 3:16 PM CDT DERMATOPATHOLOGY LABORATORY Final Diagnosis [...] AT MARGIN 3:16 PM T DERMATOPATHOLOGY LABORATORY at 1516 CDT Clinical History A-D: R/O dys nevus. Check margins. 3:16 PM [facility] DERMATOPATHOLOGY LABORATORY Gross Description Specimen A: Received is one formalin filled container labeled with the patient's name and designated left medial breast. The specimen consists of a shave biopsy measuring 4r3y4hf. The margin is inked green. Jar 0. Specimen B: Received is one formalin filled container labeled with the patient's name and designated epigastrium. The specimen consists of a shave biopsy measuring 10q8v1yr. The margin is inked green. Jar 0. Specimen C: Received is one formalin filled container labeled with the patient's name and designated right under right jawline. The specimen consists of a shave biopsy measuring 6m4j8vz. The margin is inked green. Jar 0. Specimen D: Received is one formalin filled container labeled with the patient's name and designated right lat abdomen. The specimen consists of a shave biopsy measuring 3n6t3lk. The margin is inked green. Jar 0. [...] determined by the Dermatopathology Laboratory at [facility]. These tests need not be, and therefore are not, approved by the [place] Food and Drug Administration. The tests are used for clinical purposes. Billing Codes Specimen Charges Stain Charges 10634 06828 50422 55266 1 1 1 1 05972 1 3:16 PM CDT DERMATOPATHOLOGY LABORATORY Embedded Images [...] / Unknown 01/03/2018 01/04/2018 1:02 PM CDT us Reji Jones MD LAB - PATHOLOGY/CYTOLOGY ORD ERABLES Final Result DERMATOPATHOLOGY LABORATORY [facility] - Department of Dermatology [address], 5th Floor Lab B [address] [phone] documented in this encounter Visit Diagnoses Not on filedocumented in this encounter
--- OUTSIDE RECORDS SUMMARY | 2025-03-20 12:55 | XMS_ITS | Clinical Summary ---
Author Organization [facility] Address [address] [place] [address] Care Team Providers Care Remote Sensing Research Scientist Name Role Phone Unavailable Primary Care Provider Unavailabl e Source Comments [facility],non-owned Affiliates and Associated Physician Practices is amultiple site organization consisting of ambulatory clinics and hospital sitesin [place], [place], [place] and [place]. This disclosure is being madepursuant to the Care Everywhere program and may not contain all information available regarding this patient. 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 Gender Identity Not on file Sexual Orientation Not on file Plan of Treatment Health Maintenance Due Date Last Done Comments HIV SCREENING 2001 HEPATITIS C SCREENING 01/02/2004 DTAP/TDAP/TD VACCINES (1 - Tdap) 2005 HEPATITIS B VACCINE (1 of 3 - 19+ 3-dose series) 2005 PAP SMEAR 2007 HPV VACCINE (1 - 3-dose SCDM series) 2013 COVID-19 VACCINE ( - 2023-2 5 season) 2024 DEPRESSION SCREENING 09/03/2024 INFLUENZA VACCINE (#1) 2025 ZOSTER VACCINE (1 of 2) 01/07/2036 HIB VACCINE Aged Out No longer eligi ble based on patient's age to complete this topic MENINGOCOCCAL (Group B) VACC INE SHARED DECISION-MAKING Aged Out No longer eligibl e based on patient's age to complete this topic MENINGOCOCCAL GROUPS A/C/Y/W VACCINE Aged Out No longer eligible b ased on patient's age to complete this topic PNEUMOCOCCAL VACCINE Aged Out No long er eligible based on patient's age to complete this topic Procedures Procedure Name Priority Date/Time Associated Diagnosis Comments DERMATOPATHOLOGY Routine 02/10/2025 9:40 AM CDT from Last 3 Months Results * DERMATOPATHOLOGY (02/10/2025 9:40 AM CDT) Case Report Dermatopathology Report Case: [id number] Authorizing Provider: Liset Riddle MD Collected: 02/10/2025 09:40 AM Ordering Location: [facility] - Received: 02/11/2025 02:16 PM DermPath Lab Pathologist: Jud Dyson MD Specimen: Skin, right calf 11:20 AM CDT DERMATOPATHOLOGY LABORATORY Final Diagnosis Specimen A. SKIN, right calf: LENTIGINOUS MELANOCYTIC NEVUS, COMPOUND TYPE, IRRITATED (D22.71) 11:20 AM CDT DERMATOPATHOLOGY LABORATORY at 1120 CDT Clinical History R/O MM 11:20 AM CDT DERMATOPATHOLOGY LABORATORY Gross Description Specimen A: Received is one formalin filled container labeled with the patient's name and designated right calf. The specimen consists of a shave biopsy measuring 7x5x1 mm. Jar 0. 11:20 AM CDT DERMATOPATHOLOGY LABORATORY Microscopic Description Specimen A. SKIN, right calf: This is a compound nevus. There is melanin pigment in the stratum corneum. There is a lentiginous proliferation of melanocytes between nevus nests of cells along the dermal epidermal junction. There is underlying fibroplasia of the papillary dermis and collections of melanophages. The intradermal component is bland in appearance and matures with depth. 11:20 AM CDT DERMATOPATHOLOGY LABORATORY Disclaimer An external and internal positive and negative controls are appropriate for the histochemical, immunohistochemical and immunofluorescence stain(s) in this case (if any), except where stated explicitly. The performance characteristics of the stain(s) cited in this report were developed and its performance characteristic determined by the Dermatopathology Laboratory at [facility], directed by Dr. Thierno Spears. These tests need not be, and therefore are not, approved by the [place] Food and Drug Administration. The tests are used for clinical purposes. Billing Codes Specimen Charges Stain Charges 68455 1 5 11:20 AM CDT DERMATOPATHOLOGY LABORATORY Embedded Images 5 11:20 AM CDT DERMATOPATHOLOGY LABORATORY Pathology/Cytolo gy TISSUE SPECIMEN FROM SKIN / Unknown 02/10/2025 9:40 AM CDT 02/11/2025 2:16 PM CDT Liset Riddle MD LAB - PATHOLOGY/CYTOLOGY ORD ERABLES Final Result DERMATOPATHOLOGY LABORATORY [facility] - Department of Dermatology [address], [address] [phone] from Last 3 Months Insurance [employer]
--- OUTSIDE RECORDS SUMMARY | 2025-03-20 12:55 | XMS_ITS | Clinical Summary ---
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
--- OUTSIDE RECORDS SUMMARY | 2025-03-20 12:55 | XMS_ITS | Encounter Summary ---
Author Organization [facility] Address [address] [place] [address] Phone Care Team Providers Care Mercantile Agent Name Role Phone Adry Linder MD Primary Care Provider + Arlyn Sanches Primary Care Provider [phone] Adry Linder MD Primary Care Provider + Adry Linder MD Primary Care Provider + Adry Linder MD Primary Care Provider + Joe Judge MD Unavailable [phone] Rylan Conn MD Unavailable [phone] Luz Garner MD Unavailable [phone] Encounter Details Date Type Department Care Team (Late st Contact Info) Description 11/20/2018 Orders Only [facility] Scanning, Provider Social History Tobacco Use Types Packs/Day Years Used Date Smoking Tobacco: Never Comments Unknown Sex and Gender Information Value Date Recorded Sex Assigned at Not on file 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 Gender Identity Not on file Sexual Orientation [...] on filedocumented in this encounter Care Teams Mercantile Agent Relationship Specialty Start Date End Date Adry Linder MD PCP - General 01/22/15 12/02/18 Arlyn Sanches PA PCP - General 12/03/18 12/03/18 Adry Linder MD PCP - General 12/04/18 12/30/18 Adry Linder MD PCP - General 12/31/18 08/27/19 Adry Linder MD PCP - General 08/28/19 Joe Judge MD Consulting Physician Urology 06/07/21 Rylan Conn MD [address] [facility] [phone] [place] [address] Surgeon Colon and Rectal Surgery 09/26/22 Luz Garner MD [address] [place] [address] Orthopedics Teacher Gastroenterology 09/26/22 documented as of this encounter
--- OUTSIDE RECORDS SUMMARY | 2025-03-20 12:55 | XMS_ITS | Encounter Summary ---
Author Organization [facility] Address [address] [facility] [place] [address] Care Team Providers Care Printed Circuit Boards Plasma Etcher Name Role Phone Unavailable Primary Care Provider Unavailabl e Encounter Details Date Type Department Care Team (Late st Contact Info) Description 06/23/2024 Lab Requisition [facility] - DermPath Lab [address] [facility], 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 Gender Identity Not on file Sexual Orientation Not on file documented as of this encounter Plan of Treatment Not on file documented as of this encounter Procedures Procedure Name Priority Date/Time Associated Diagnosis Comments DERMATOPATHOLOGY Routine 06/23/2024 2:40 PM CDT documented in this encounter Results * DERMATOPATHOLOGY (06/23/2024 2:40 PM CDT) Case Report Dermatopathology Report Case: [id number] Authorizing Provider: Leonarda Grimm PA Collected: 06/23/2024 02:40 PM Ordering Location: [facility] - Received: 06/24/2024 12:14 PM DermPath Lab [...] (see microscopic description and comment) 1:27 PM T DERMATOPATHOLOGY LABORATORY at 1327 CDT Clinical History A-B: Nevus, R/O atypia, irregular border, irregular color 1:27 PM [facility] DERMATOPATHOLOGY LABORATORY Gross Description Specimen A: [...] measuring 5x4x1 mm. Jar 0. 1:27 PM [facility] DERMATOPATHOLOGY LABORATORY Microscopic Description Specimen A. [...] Dr. Anahi Pak who agrees. 1:27 PM T DERMATOPATHOLOGY LABORATORY Disclaimer An external and internal positive and negative controls are appropriate for the histochemical, immunohistochemical and immunofluorescence stain(s) in this case (if any), except where stated explicitly. The performance characteristics of the stain(s) cited in this report were developed and its performance characteristic determined by the Dermatopathology Laboratory at [facility], directed by Dr. Thierno Spears. These tests need not be, and therefore are not, approved by the [place] Food and Drug Administration. The tests are used for clinical purposes. Billing Codes Specimen Charges Stain Charges 36003 37532 1 1 11657 08578 74152 1 1 1 4 1:27 PM CDT DERMATOPATHOLOGY LABORATORY Embedded Images 1:27 PM CDT DERMATOPATHOLOGY LABORATORY Pathology/Cytology TISSUE SPECIMEN FROM SKIN / Unknown 06/23/2024 2:40 PM CDT 06/24/2024 12:14 PM CDT Miscellaneous samples (specimen) TISSUE SPECIMEN FROM SKIN / Unknown 06/23/2024 2:40 PM CDT 06/24/2024 12:14 PM CDT Leonarda LUCERO LAB - PATHOLOGY/CYTOLOGY ORDERAB LES Final Result DERMATOPATHOLOGY LABORATORY [facility] - Department of Dermatology [facility] Medicine [address] [place] [address], [address] [phone] documented in this encounter Visit Diagnoses Not on filedocumented in this encounter
--- OUTSIDE RECORDS SUMMARY | 2025-03-20 12:55 | XMS_ITS | Encounter Summary ---
Author Organization [facility] Address [address] [facility] [place] [address] Care Team Providers Care Fruit And Vegetable Parer Name Role Phone Unavailable Primary Care Provider Unavailabl e Encounter Details Date Type Department Care Team (Late st Contact Info) Description 07/08/2024 Lab Requisition [facility] - DermPath Lab [address] [facility], [place] [address] Diamond Cote MD [address] [place] [address] Social History Tobacco Use Types Packs/Day Years Used Date Smoking Tobacco: Never Assessed Comments Unknown Sex and Gender Information Value Date Recorded Sex Assigned at Not on file Legal Sex Female 7:20 PM SAWMILL RELIEF WORKER Gender Identity Not on file Sexual Orientation Not on file documented as of this encounter Plan of Treatment Not on file documented as of this encounter Procedures Procedure Name Priority Date/Time Associated Diagnosis Comments DERMATOPATHOLOGY Routine 07/08/2024 10:1 0 AM SAWMILL RELIEF WORKER documented in this encounter Results * DERMATOPATHOLOGY (07/08/2024 10:10 AM SAWMILL RELIEF WORKER) Case Report Dermatopathology Report Case: [id number] Authorizing Provider: Diamond Cote MD Collected: 07/08/2024 10:10 AM Ordering Location: [facility] Physician [facility] - Received: 07/09/2024 09:38 AM DermPath Lab Pathologist: Mario Spears MD Specimen: Skin, right medial foot 4 3:54 PM SAWMILL RELIEF WORKER DERMATOPATHOLOGY LABORATORY Final Diagnosis Specimen A. SKIN, right medial foot: DERMAL SCAR; PRESENT AT MARGIN RESIDUAL MELANOCYTIC PROLIFERATION NOT IDENTIFIED (L90.5) (see microscopic description) 4 3:54 PM SAWMILL RELIEF WORKER DERMATOPATHOLOGY LABORATORY at 1554 SAWMILL RELIEF WORKER Clinical History BX proven FIDE prolif 4 3:54 PM [facility] DERMATOPATHOLOGY LABORATORY Gross Description Specimen A: Received [...] cassette 2. Jar 0. 4 3:54 PM [facility] DERMATOPATHOLOGY LABORATORY Microscopic Description Specimen A. SKIN, right medial foot: There are fibroblasts and collagen bundles oriented parallel to the skin surface. There are elongated blood vessels, some of which are oriented perpendicular to the skin surface. No residual melanocytic proliferation is identified. The scar is present at the base of the specimen. 3:54 PM [facility] DERMATOPATHOLOGY LABORATORY Disclaimer An external and internal positive and negative controls are appropriate for the histochemical, immunohistochemical and immunofluorescence stain(s) in this case (if any), except where stated explicitly. The performance characteristics of the stain(s) cited in this report were developed and its performance characteristic determined by the Dermatopathology Laboratory at [facility], directed by Dr. Thierno Spears. These tests need not be, and therefore are not, approved by the [place] Food and Drug Administration. The tests are used for clinical purposes. Billing Codes Specimen Charges Stain Charges 38995 1 4 3:54 PM [facility] DERMATOPATHOLOGY LABORATORY Embedded Images 4 3:54 PM [facility] DERMATOPATHOLOGY LABORATORY Pathology/Cytolo gy TISSUE SPECIMEN FROM SKIN / Unknown 07/08/2024 10:10 AM SAWMILL RELIEF WORKER 07/09/2024 9:38 AM SAWMILL RELIEF WORKER us Diamond Cote MD LAB - PATHOLOGY/CYTOLOGY OR DERABLES Final Result DERMATOPATHOLOGY LABORATORY [facility] - Department of Dermatology [address] [place] [address], [facility] [phone] documented in this encounter Visit Diagnoses Not on filedocumented in this encounter
--- OUTSIDE RECORDS SUMMARY | 2025-03-20 12:56 | XMS_ITS | Encounter Summary ---
Author Organization [facility] Address [address] [facility] [place] [address] Care Team Providers Care Inspector Pawnshop Detail Name Role Phone Unavailable Primary Care Provider Unavailabl e Encounter Details Date Type Department Care Team (Late st Contact Info) Description 02/10/2025 Lab Requisition [facility] - DermPath Lab [address] [facility] [place] [address] Liset Riddle MD [address] [facility] [address] [place] [address] Social History Tobacco Use Types Packs/Day Years Used Date Smoking Tobacco: Never Assessed Comments Unknown Sex and Gender Information Value Date Recorded Sex Assigned at Not on file Legal Sex Female 7:20 PM VIDEO CLERK Gender Identity Not on file Sexual Orientation Not on file documented as of this encounter Plan of Treatment Not on file documented as of this encounter Procedures Procedure Name Priority Date/Time Associated Diagnosis Comments DERMATOPATHOLOGY Routine 02/10/2025 9:40 AM CDT documented in this encounter Results * DERMATOPATHOLOGY (02/10/2025 9:40 AM CDT) Case Report Dermatopathology Report Case: [id number] Authorizing Provider: Liset Riddle MD Collected: 02/10/2025 09:40 AM Ordering Location: [facility] Physician [facility] - Received: 02/11/2025 02:16 PM DermPath Lab Pathologist: Jud Dyson MD Specimen: Skin, right calf 11:20 AM CDT DERMATOPATHOLOGY LABORATORY Final Diagnosis Specimen A. SKIN, right calf: LENTIGINOUS MELANOCYTIC NEVUS, COMPOUND TYPE, IRRITATED (D22.71) 11:20 AM CDT DERMATOPATHOLOGY LABORATORY at 1120 CDT Clinical History R/O MM 11:20 AM T DERMATOPATHOLOGY LABORATORY Gross Description Specimen A: Received is one formalin filled container labeled with the patient's name and designated right calf. The specimen consists of a shave biopsy measuring 7x5x1 mm. Jar 0. 11:20 AM [facility] DERMATOPATHOLOGY LABORATORY Microscopic Description Specimen A. SKIN, [...] appearance and matures with depth. 11:20 AM [facility] DERMATOPATHOLOGY LABORATORY Disclaimer An external and internal positive and negative controls are appropriate for the histochemical, immunohistochemical and immunofluorescence stain(s) in this case (if any), except where stated explicitly. The performance characteristics of the stain(s) cited in this report were developed and its performance characteristic determined by the Dermatopathology Laboratory at [facility], directed by Dr. Thierno Spears. These tests need not be, and therefore are not, approved by the [place] Food and Drug Administration. The tests are used for clinical purposes. Billing Codes Specimen Charges Stain Charges 14389 1 11:20 AM CDT DERMATOPATHOLOGY LABORATORY Embedded Images 11:20 AM T DERMATOPATHOLOGY LABORATORY Pathology/Cytolo gy TISSUE SPECIMEN FROM SKIN / Unknown 02/10/2025 9:40 AM CDT 02/11/2025 2:16 PM CDT us Liset Riddle MD LAB - PATHOLOGY/CYTOLOGY ORD ERABLES Final Result DERMATOPATHOLOGY LABORATORY [facility] - Department of Dermatology [address] [phone] documented in this encounter Visit Diagnoses Not on filedocumented in this encounter
--- OUTSIDE RECORDS SUMMARY | 2025-03-20 12:56 | XMS_ITS | Referral Summary ---
Author Organization [facility] Address [address] [place] [address] Care Team Providers Care Spout Worker Name Role Phone Adry Linder MD Primary Care Provider + Joe Judge MD Unavailable [phone] Rylan Conn MD Unavailable [phone] Luz Garner MD Unavailable [phone] Allergies Active Allergy Reactions Criticality Noted Date Comments Sulfamethoxazole-Trimethoprim Swelling Medium 2021 Oxycodone Hypotension High 07/19/2023 Venom-Honey Bee Anaphylaxis High 07/12/2012 Medications Lactobacillus acidophilus (PROBIOTIC ORAL)Indications :GI health Take 1 tablet by mouth daily Active UNABLE TO FINDIndications: supplement Take 1 each by mouth every morning EHT brain supplement qd Active cetirizine (ZyrTEC) 10 mg tabletIndication s:Allergic Rhinitis Take 1 tablet (10 mg total) by mouth every morning 0 9 Active fluticasone propionate (FLONASE) 50 mcg/actuation nasal sprayIndications :Allergic Rhinitis Administer 1 spray into each nostril daily Active multivitamin capsuleIndicatio ns:Vitamin Deficiency Prevention Take 1 capsule by mouth every morning Active collagen, bovine, 100 % powderIndication s:supplement Take 1 Dose by mouth every morning Active psyllium seed, sugar, powderIndication s:constipation Take 1 Scoop by mouth director of development before breakfast Active cefdinir (OMNICEF) 300 mg capsule Take 1 capsule (300 mg total) by mouth 2 (two) times a day 180 capsule 3 5 Active diphenoxylate-at ropine (LOMOTIL) 2.5-0.025 mg per tablet TAKE 2 TABLETS BY MOUTH TWICE DAILY 180 tablet 3 5 Active Active Problems Problem Noted Date Diagnosed Date [...] basis should help Ulcerative pancolitis with complication 03/18/20 Overview (04/07/2024): Year of diagnosis: 05/2018. 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 Colon: Colonoscopy as above. She does not meet high risk colon cancer surveillance as yet. DIRECTOR OF AGRICULTURE: Annual PAP smear recommended if she begins [...] Diagnosed Date Resolved Date Ileostomy in place 05/29/2023 4 Ulcerative colitis, acute, u nspecified complication 03/22/2023 04/07/2024 Ulcerative colitis with complication 06/12/2019 04/28/2020 Overview (06/12/2019): Added automatically from request for surgery [id number] Ulcerative pancolitis with complication 12/23/2018 03/16/2019 Overview (12/31/2018): IBD History: Diagnosis: [...] infection. 1. Submit for Entyvio either at [facility] or [facility] 5 2. Bridge patient with Entocort/Uceris for 6 weeks 3. Patient can use Imodium low-dose to reduce stool frequency Immunizations Immunization Administration Dates Next Due Influenza, Quadrivalent, Split, [...] on file Legal Sex Female 7:35 PM WATERSHED COORDINATOR Gender Identity Not on file Sexual Orientation Not on file Last Filed Vital Signs Vital Sign Reading Time Taken Comments Blood Pressure 114/68 10/14/2024 2:08 PM WATERSHED COORDINATOR Pulse 95 10/08/2024 2:41 PM WATERSHED COORDINATOR Temperature 36.7 C (98.1 F) 10/08/2024 2:41 PM WATERSHED COORDINATOR Respiratory Rate 16 05/09/2024 10:20 AM CDT Oxygen Saturation 99% 05/09/2024 10:20 AM CDT Inhaled Oxygen Concentration - - Weight 83.5 kg (184 lb) 10/14/2024 2:08 PM WATERSHED COORDINATOR Height 170.2 cm (5' 7) 10/08/2024 2:41 PM WATERSHED COORDINATOR Body Mass Index 28.82 10/08/2024 2:41 PM WATERSHED COORDINATOR Plan of Treatment Not on file Procedures Procedure Name Priority Date/Time Associated Diagnosis Comments PAP AND HPV, REFLEX TO HPV GENOTYPES Routine 08/09/2023 4:53 PM WATERSHED COORDINATOR Cervical cancer screening from Last 3 Months or Most Recently Relevant to Health Maintenance Results * Pap and HPV, reflex to HPV Genotypes (08/09/2023 4:53 PM WATERSHED COORDINATOR) Clinical indication Comment [facility] - 01 Comment:NEGATIVE [...] not performed. Thin prep 08/09/2023 4:53 PM WATERSHED COORDINATOR 08/09/2023 Narrative [facility] - 08/13/2023 4:10 PM WATERSHED COORDINATOR Performed at: - [address] [id number] Needlemaker: Latasha Peterson MD, Phone: [phone] Performed at: - [address] [id number] Needlemaker: Latasha Peterson MD, Phone: [phone] Specimen Comment: Source.............Cervix;Endocervix Specimen Comment: No. of containers..01 ThinPrep Vial Diana Dyson MD LAB CYTOLOGY ORDERABLES Final Result [facility] - 01 [facility] [place] 02 from Last 3 Months or Most Recently Relevant to Health Maintenance Insurance [facility] PL[facility] OPEN ACCESS [facility] CHOICE PLUS [facility] CHOICE PLUS CIGNA OPEN ACCESS [facility] Advance Directives For more information, please contact: [phone] * Full Code (Latest Code Status on [...] 11:49 AM 03/26/2023 7:04 PM Care Teams Spout Worker Relationship Specialty Start Date End Date Adry Linder MD PCP - General 08/28/19 Joe Judge MD Consulting Physician Urology 06/07/21 Rylan Conn MD [address] [facility] [id number] [place] [address] Surgeon Colon and Rectal Surgery 09/26/22 Luz Garner MD [address] [place] [address] Take Away Attendant Gastroenterology 09/26/22
--- OUTSIDE RECORDS SUMMARY | 2025-03-20 12:56 | XMS_ITS | Clinical Summary ---
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 Colon: Colonoscopy as above. She does not meet high risk colon cancer surveillance as yet. LEAD WORKER OF HOUSEKEEPING AND LAUNDRY: Annual PAP smear recommended if she begins [...] (06/12/2019): Added automatically from request for surgery [id number] Ulcerative pancolitis with complication 12/23/2018 03/16/2019 Overview [...] infection. 1. Submit for Entyvio [facility] at [facility] or [facility] 5 2. 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 Jose Roberto's disease Family History Medical [...] on file Legal Sex Female 7:35 PM SURVEYING OR SPATIAL SCIENCE TECHNICIAN Gender Identity Not on file Sexual Orientation Not on file Obstetrics History Last Filed Vital Signs Vital Sign Reading Time Taken Comments Blood Pressure 114/68 10/14/2024 2:08 PM SURVEYING OR SPATIAL SCIENCE TECHNICIAN Pulse 95 10/08/2024 2:41 PM SURVEYING OR SPATIAL SCIENCE TECHNICIAN Temperature 36.7 C (98.1 F) 10/08/2024 2:41 PM SURVEYING OR SPATIAL SCIENCE TECHNICIAN Respiratory Rate 16 05/09/2024 10:20 AM CDT Oxygen Saturation 99% 05/09/2024 10:20 AM CDT Inhaled Oxygen Concentration - - Weight 83.5 kg (184 lb) 10/14/2024 2:08 PM SURVEYING OR SPATIAL SCIENCE TECHNICIAN Height 170.2 cm (5' 7) 10/08/2024 2:41 PM SURVEYING OR SPATIAL SCIENCE TECHNICIAN Body Mass Index 28.82 10/08/2024 2:41 PM SURVEYING OR SPATIAL SCIENCE TECHNICIAN Plan of Treatment Health Maintenance Due Date Last Done Comments Depression Screening 1986 Hepatitis C Screening 1986 Varicella Vaccines (1 of 2 - 13+ 2-dose series) 1999 Hepatitis B Screening 01/07/2004 DTaP/Tdap/Td Vaccine (2 - Td or Tdap) 02/22/2022 02/23/2012 Covid-19 Vaccine ( season) 2024 09/10/2021, 09/12/2020, 08/22/2020 Influenza Vaccine (#1) 2025 , 07/02/2021, 06/20/2019, Additional history exists Regular Well Visit/Exam 18-64 10/14/2025 10/14/2024, 08/09/2023 Cervical Cancer Screening 08/09/2026 08/09/2023 Pneumococcal vaccine <65 Aged Out 04/07/2019, 12/04 No longer eligible based on patient's age to complete this topic HPV Vaccines Aged Out No longer eligi ble based on patient's age to complete this topic Procedures Procedure Name Priority Date/Time Associated Diagnosis Comments PAP AND HPV, REFLEX TO HPV GENOTYPES Routine 08/09/2023 4:53 PM SURVEYING OR SPATIAL SCIENCE TECHNICIAN Cervical cancer screening from Last 3 Months or Most Recently Relevant to Health Maintenance Results * Pap and HPV, reflex to HPV Genotypes (08/09/2023 4:53 PM SURVEYING OR SPATIAL SCIENCE TECHNICIAN) Clinical indication Comment [facility] - Comment:NEGATIVE FOR INTRAEP ITHELIAL LESION OR MALIGNANCY. Specimen adequacy: Comment [facility] - 01 Comment: Satisfactory for evaluation. Endocervical and/or squamous metaplastic cells (endocervical component) are present. Clinician provided ICD10 Comment [facility] - Comment:Z12.4 Performed by Comment [facility] - 01 [...] do occur. Test methodology Comment [facility] - Comment: This liquid based ThinPrep(R) pap test was screened with the use of an image guided system. HPV Aptima Negative Negative LAB [place] Comment: This nucleic acid amplification test detects fourteen high-risk HPV types (16,18,31,33,35,39,45,51,52,56,58,59,66,68) without differentiation. HPV Genotype Reflex Comment [facility] - 01 Comment:Criteria not met, HP V Genotype not performed. Thin prep 08/09/2023 4:53 PM SURVEYING OR SPATIAL SCIENCE TECHNICIAN 08/09/2023 Narrative [facility] - 08/13/2023 4:10 PM SURVEYING OR SPATIAL SCIENCE TECHNICIAN Performed at: - [address] [id number] Boat And Plant Utility Supervisor: Latasha Peterson MD, Phone: [phone] Performed at: - [address] [id number] Boat And Plant Utility Supervisor: Latasha Peterson MD, Phone: [phone] Specimen Comment: Source.............Cervix;Endocervix Specimen Comment: No. of containers..01 ThinPrep Vial Diana Dyson MD LAB CYTOLOGY ORDERABLES Final Result [facility] - 01 LAB [place] 02 from Last 3 Months or Most Recently Relevant to Health Maintenance Insurance [facility] CHOICE PLUS [facility] HMO/PPO Address: [address] [address] [place] [address] [employer] OPEN ACCESS [facility] CHOICE PLUS [facility] HMO/PPO Address: [address] [address] [place] [address] [facility] HMO/PPO Address: [address] [address] [place] [address] [facility] H[facility]/PPO Address: [address] [place] [phone] [facility] H[facility]/PPO Address: [address] [place] [phone] Advance Directives For more information, please contact: [phone] * Full Code (Latest Code Status on [...] 11:49 AM 03/26/2023 7:04 PM Care Teams Thermal Cutter Helper Relationship Specialty Start Date End Date Adry Linder MD PCP - General 08/28/19 Joe Judge MD Consulting Physician Urology 06/07/21 Rylan Conn MD [address] [facility] [id number] [place] [address] Surgeon Colon and Rectal Surgery 09/26/22 Luz Garner MD [address] [place] [address] Photoengraving Finisher Gastroenterology 09/26/22
--- OUTSIDE RECORDS SUMMARY | 2025-03-20 12:56 | XMS_ITS | Data Portability ---
Author Organization [facility] Address [address] [facility] [place] [place] [address] Assessment No assessment recorded. Plan of Treatment Reminders Order Date Submit Date Provider Last Modified By Organization Details Last Modified Time Details Appointments NEW PATIENT 30 2024 10:30A M NIC Kenney Not available Not available Not available Lab CMP, serum or plasma 2020 [facility], [address] [place] [address], [address], [place], [address], 06/07/2021 08:19:51 C reactive protein, QN, serum or plasma 2020 [facility], [address] [place] [address], [address], [place], [address], 06/07/2021 08:19:53 iron + total iron-bin ding capacity (TIBC), serum 2020 [facility], [address] [place] [address], [address], [place], [address], 06/07/2021 08:19:52 ferritin , serum or plasma 2020 [facility], [address] [place] [address], [address], [place], [address], 06/07/2021 08:19:53 CBC w/ auto diff 2020 [facility], [address] [facility] [address], [address], [place], [address], 06/07/2021 08:19:51 urinalys is, dipstick 2018 019 [email or web address] In-Office Order, Internal Use Only DO Not Attach Compendium DO Not Attach Compendium, Do Not Delete/merge, [id number] 04/03/2019 13:30:26 urinalys is, complete 2018 019 [facility], [address], [address], [place], [address], 04/05/2019 06:09:36 culture, urine 2018 019 [facility], [address], [address], [place], [address], 04/05/2019 06:09:[address] referral - Please contact patient to schedule an appointm ent, Thank you. Omayra Austin 2020 [facility], [address], [address], [place], [address], 06/06/2021 16:50:25 general surgeon referral - Dr. Santos for colorect al surgery consult 2020 [facility], [address], [address], [place], [address], 06/22/2021 12:41:29 Procedures None recorded . Surgeries None recorded . Imaging None recorded . Medication Orders Medrol (Aaron) 4 mg tablets in a dose pack 2019 [facility] #[id number], [address] [place] [address], [id number], 06/06/2021 11:24:54 cefdinir 300 mg capsule 2019 020 [email or web address] 1 [facility] #[id number], [address] [place] [address], [id number], 03/20/2025 11:55:58 cefdinir 300 mg capsule 2018 019 [email or web address] [facility] #[id number], [address] [facility] [address] [place] [address], [id number], 06/06/2021 11:24:42 Bactrim DS 800 mg-160 mg tablet 2018 019 [facility] #[id number], [address] [place] [address], [id number], 05/01/2019 11:22:45 Patient TargetsNo targets recorded. Patient InstructionsNo instructions recorded. Reason for Referral Varnish Inspector Referral for Ulcerative colitis Please contact patient to schedule an appointment, Thank you. Omayra Austin Referring Physician: Arlyn Sanches [facility], Encounter Date: 06/06/2021 General Surgeon Referral for Ulcerative colitis Dr. Santos for colorectal surgery consult Referring Physician: Arlyn Sanches [facility], Encounter Date: 06/06/2021 Results Created Date Observation Date Name Description Value Unit Range Abnormal Flag Note LastModifiedBy Organization Detail LastModifiedTime 04/03/2004/04/2019 urina lysis , compl ete specific gravity 1.016 1.005- 1.030 Not Available [facility] [address] [facility], [place], [address], 04/05/2019 06:09:36 04/03/2004/04/2019 urina lysis , compl ete pH 5.5 5.0-7. 5 Not Available [facility] [address] [facility], [place], [address], 04/05/2019 06:09:36 04/03/2004/04/2019 urina lysis , compl ete urine-color Yellow yellow Not Available [facility] [address] [facility], [place], [address], 04/05/2019 06:09:36 04/03/2004/04/2019 urina lysis , compl ete appearance Clear clear Not Available [facility] [address] [facility], [place], [address], 04/05/2019 06:09:36 04/03/2004/04/2019 urina lysis , compl ete WBC esterase Negati ve negati ve Not Available [facility] [address] [place], [address], 04/05/2019 06:09:36 04/03/2004/04/2019 urina lysis , compl ete protein Negati ve negati ve/tra ce Not Available [facility] [address] [place], [address], 04/05/2019 06:09:36 04/03/2004/04/2019 urina lysis , compl ete glucose Negati ve negati ve Not Available [facility] [address] [place], [address], 04/05/2019 06:09:36 04/03/2004/04/2019 urina lysis , compl ete ketones Negati ve negati ve Not Available [facility] [address] [place], [address], 04/05/2019 06:09:36 04/03/2004/04/2019 urina lysis , compl ete occult blood Trace negati ve abnormal Not Available [facility] [address] [place], [address], 04/05/2019 06:09:36 04/03/2004/04/2019 urina lysis , compl ete bilirubin Negati ve negati ve Not Available [facility] [address] [place], [address], 04/05/2019 06:09:36 04/03/2004/04/2019 urina lysis , compl ete urobilinogen ,semi-qn 0.2 mg/dL 0.2-1. 0 Not Available [facility] [address] [place], [address], 04/05/2019 06:09:36 04/03/2004/04/2019 urina lysis , compl ete nitrite, urine Negati ve negati ve Not Available [facility] [address] [facility], [place], [address], 04/05/2019 06:09:36 04/03/2004/04/2019 urina lysis , compl ete microscopic examination See below: Micro scopi c was indic ated and was perfo rmed. Not Available [facility] [address] [facility], [place], [address], 04/05/2019 06:09:36 04/03/2004/04/2019 urina lysis , compl ete WBC 0-5 /hpf 0 - 5 Not Available [facility] [address] [place], [address], 04/05/2019 06:09:36 04/03/2004/04/2019 urina lysis , compl ete RBC 0-2 /hpf 0 - 2 Not Available [facility] [address] [facility], [place], [address], 04/05/2019 06:09:36 04/03/2004/04/2019 urina lysis , compl ete epithelial cells (non renal) 0-10 /hpf 0 - 10 Not Available [facility] [address] [place], [address], 04/05/2019 06:09:36 04/03/2004/04/2019 urina lysis , compl ete epithelial cells (renal) [employer] Not Available [facility] [address] [facility], [place], [address], 04/05/2019 06:09:36 04/03/2004/04/2019 urina lysis , compl ete casts Presen t /lpf none seen abnormal Not Available [facility] [address] [facility], [place], [address], 04/05/2019 06:09:36 04/03/2004/04/2019 urina lysis , compl ete cast type Hyalin e casts n/a Not Available [facility] [address] [facility], [place], [address], 04/05/2019 06:09:36 04/03/2004/04/2019 urina lysis , compl ete crystals [employer] Not Available [facility] [address] [facility], [place], [address], 04/05/2019 06:09:36 04/03/2004/04/2019 urina lysis , compl ete crystal type [employer] Not Available [facility] [address] [facility], [place], [address], 04/05/2019 06:09:36 04/03/2004/04/2019 urina lysis , compl ete mucus threads Presen t not estab. Not Available [facility] [address] [facility], [place], [address], 04/05/2019 06:09:36 04/03/2004/04/2019 urina lysis , compl ete bacteria Few none seen/f ew Not Available [facility] [address] [facility], [place], [address], 04/05/2019 06:09:36 04/03/2004/04/2019 urina lysis , compl ete yeast [employer] Not Available [facility] [address] [facility], [place], [address], 04/05/2019 06:09:36 04/03/2004/04/2019 urina lysis , compl ete trichomonas [employer] Not Available [facility] [address] [facility], [place], [address], 04/05/2019 06:09:36 04/03/2004/04/2019 urina lysis , compl ete comment [employer] Not Available [facility] [address] [facility], [place], [address], 04/05/2019 06:09:36 04/03/2004/04/2019 urina lysis , compl ete microscopic examination [employer] Not Available [facility] [address] [facility], [place], [address], 04/05/2019 06:09:36 04/03/2004/04/2019 cultu re, urine urine culture, routine Final report Not Available [facility] [address] [facility], [place], [address], 04/05/2019 06:09:37 04/03/2004/04/2019 cultu re, urine result 1 Commen t Cultu re shows less than 10,00 0 colon y formi ng units of bacte marce per danie liter of urine . This colon y count is not gener ally consi dered to be clini david signi fican t. Not Available [facility] [address] [facility], [place], [address], 04/05/2019 06:09:37 04/03/2004/03/2019 urina lysis , dipst ick Leukocytes Negati ve Not Available In-Office Order Internal Use Only DO Not Attach Compendium DO Not Attach Compendium, Do Not Delete/merge, [id number] 04/03/2019 11:49:32 04/03/2004/03/2019 urina lysis , dipst ick Nitrite negati ve Not Available In-Office Order Internal Use Only DO Not Attach Compendium DO Not Attach Compendium, Do Not Delete/merge, [id number] 04/03/2019 11:49:32 04/03/2004/03/2019 urina lysis , dipst ick Urobilinogen .2 Not Available In-Of fice Order Internal Use Only DO Not Attach Compendium DO Not Attach Compendium, Do Not Delete/merge, [facility] 04/03/2019 11:49:32 04/03/2004/03/2019 urina lysis , dipst ick Protein Negati ve Not Available In-Office Order Internal Use Only DO Not Attach Compendium DO Not Attach Compendium, Do Not Delete/merge, [id number] 04/03/2019 11:49:32 04/03/2004/03/2019 urina lysis , dipst ick pH 6.5 Not Available In-Office Order Internal Use Only DO Not Attach Compendium DO Not Attach Compendium, Do Not Delete/merge, [facility] 04/03/2019 11:49:32 04/03/2004/03/2019 urina lysis , dipst ick Blood Hemoly zed: Trace Not Available In-Office Order Internal Use Only DO Not Attach Compendium DO Not Attach Compendium, Do Not Delete/merge, [facility] 04/03/2019 11:49:32 04/03/2004/03/2019 urina lysis , dipst ick Specific [place] 1.025 Not Available In-Off ice Order Internal Use Only DO Not Attach Compendium DO Not Attach Compendium, Do Not Delete/merge, [id number] 04/03/2019 11:49:32 04/03/2004/03/2019 urina lysis , dipst ick Ketone Negati ve Not Available In-Office Order Internal Use Only DO Not Attach Compendium DO Not Attach Compendium, Do Not Delete/merge, [id number] 04/03/2019 11:49:32 04/03/2004/03/2019 urina lysis , dipst ick Bilirubin Negati ve Not Available In-Office Order Internal Use Only DO Not Attach Compendium DO Not Attach Compendium, Do Not Delete/merge, [id number] 04/03/2019 11:49:32 04/03/20 19 04/03/2019 urina lysis , dipst ick Glucose Negati ve Not Available In-Office Order Internal Use Only DO Not Attach Compendium DO Not Attach Compendium, Do Not Delete/merge, [id number] 04/03/2019 11:49:32 04/03/20 19 04/03/2019 urina lysis , dipst ick Appearance Clear Not Available In-Offi ce Order Internal Use Only DO Not Attach Compendium DO Not Attach Compendium, Do Not Delete/merge, [id number] 04/03/2019 11:49:32 04/03/20 19 04/03/2019 urina lysis , dipst ick Color Yellow Not Available In-Office Order Internal Use Only DO Not Attach Compendium DO Not Attach Compendium, Do Not Delete/merge, [id number] 04/03/2019 11:49:32 04/18/20 21 04/19/2021 TSH REFLE X TO T4F TSH 1.450 uIU/m L 0.450- 4.500 normal Not Available [facility] [address] [place], [address], 04/19/2021 08:18:23 04/18/20 21 04/19/2021 THYRO ID PEROX IDASE (TPO) AB thyroid peroxidase (tpo) Ab 17 IU/mL 0-34 normal Not Available [facility] [address] [place], [address], 04/19/2021 08:18:24 06/06/20 21 06/07/2021 CBC WITH DIFFE RENTI AL/PL ATELE T WBC 7.2 x10e3 /uL 3.4-10 .8 Not Available [facility] [address] [place], [address], 06/07/2021 08:19:51 06/06/20 21 06/07/2021 CBC WITH DIFFE RENTI AL/PL ATELE T RBC 4.06 x10e6 /uL 3.77-5 .28 Not Available [facility] [address] [facility], [place], [address], 06/07/2021 08:19:51 06/06/20 21 06/07/2021 CBC WITH DIFFE RENTI AL/PL ATELE T hemoglobin 11.2 g/dL 11.1-1 5.9 Not Available [facility] [address] [facility], [place], [address], 06/07/2021 08:19:51 06/06/20 21 06/07/2021 CBC WITH DIFFE RENTI AL/PL ATELE T hematocrit 34.7 % 34.0-4 6.6 Not Available [facility] [address] [facility], [place], [address], 06/07/2021 08:19:51 06/06/20 21 06/07/2021 CBC WITH DIFFE RENTI AL/PL ATELE T MCV 86 fL 79-97 Not Available [facility] [address] [place], [address], 06/07/2021 08:19:51 06/06/20 21 06/07/2021 CBC WITH DIFFE RENTI AL/PL ATELE T MCH 27.6 pg 26.6-3 3.0 Not Available [facility] [address] [place], [address], 06/07/2021 08:19:51 06/06/20 21 06/07/2021 CBC WITH DIFFE RENTI AL/PL ATELE T MCHC 32.3 g/dL 31.5-3 5.7 Not Available [facility] [address] [place], [address], 06/07/2021 08:19:51 06/06/20 21 06/07/2021 CBC WITH DIFFE RENTI AL/PL ATELE T RDW 13.2 % 11.7-1 5.4 Not Available [facility] [address] [facility], [place], [address], 06/07/2021 08:19:51 06/06/2006/07/2021 CBC WITH DIFFE RENTI AL/PL ATELE T platelets 649 x10e3 /uL 150-45 0 above high normal Not Available [facility] [address] [facility], [place], [address], 06/07/2021 08:19:51 06/06/20 21 06/07/2021 CBC WITH DIFFE RENTI AL/PL ATELE T neutrophils 37 % not estab. Not Available [facility] [address] [facility], [place], [address], 06/07/2021 08:19:51 06/06/20 21 06/07/2021 CBC WITH DIFFE RENTI AL/PL ATELE T lymphs 44 % not estab. Not Available [facility] [address] [facility], [place], [address], 06/07/2021 08:19:51 06/06/2006/07/2021 CBC WITH DIFFE RENTI AL/PL ATELE T monocytes 16 % not estab. Not Available [facility] [address] [facility], [place], [address], 06/07/2021 08:19:51 06/06/2006/07/2021 CBC WITH DIFFE RENTI AL/PL ATELE T eos 2 % not estab. Not Available [facility] [address] [facility], [place], [address], 06/07/2021 08:19:51 06/06/20 21 06/07/2021 CBC WITH DIFFE RENTI AL/PL ATELE T basos 1 % not estab. Not Available [facility] [address] [facility], [place], [address], 06/07/2021 08:19:51 06/06/20 21 06/07/2021 CBC WITH DIFFE RENTI AL/PL ATELE T immature cells [employer] IN[employer] Not Available [facility] [address] [place], [address], 06/07/2021 08:19:51 06/06/20 21 06/07/2021 CBC WITH DIFFE RENTI AL/PL ATELE T neutrophils (absolute) 2.7 x10e3 /uL 1.4-7. 0 Not Available [facility] [address] [place], [address], 06/07/2021 08:19:51 06/06/20 21 06/07/2021 CBC WITH DIFFE RENTI AL/PL ATELE T lymphs (absolute) 3.1 x10e3 /uL 0.7-3. 1 Not Available [facility] [address] [place], [address], 06/07/2021 08:19:51 06/06/20 21 06/07/2021 CBC WITH DIFFE RENTI AL/PL ATELE T monocytes(ab solute) 1.2 x10e3 /uL 0.1-0. 9 above high normal Not Available [facility] [address] [place], [address], 06/07/2021 08:19:51 06/06/20 21 06/07/2021 CBC WITH DIFFE RENTI AL/PL ATELE T eos (absolute) 0.2 x10e3 /uL 0.0-0. 4 Not Available [facility] [address] [place], [address], 06/07/2021 08:19:51 06/06/20 21 06/07/2021 CBC WITH DIFFE RENTI AL/PL ATELE T baso (absolute) 0.1 x10e3 /uL 0.0-0. 2 Not Available [facility] [address] [facility] [place], [address], 06/07/2021 08:19:51 06/06/20 21 06/07/2021 CBC WITH DIFFE RENTI AL/PL ATELE T immature granulocytes 0 % not estab. Not Available [facility] [address] [facility], [place], [address], 06/07/2021 08:19:51 06/06/20 21 06/07/2021 CBC WITH DIFFE RENTI AL/PL ATELE T immature grans (abs) 0.0 x10e3 /uL 0.0-0. 1 Not Available [facility] [address] [facility], [place], [address], 06/07/2021 08:19:51 06/06/20 21 06/07/2021 CBC WITH DIFFE RENTI AL/PL ATELE T NRBC [employer] Not Available [facility] [address] [facility], [place], [address], 06/07/2021 08:19:51 06/06/20 21 06/07/2021 CBC WITH DIFFE RENTI AL/PL ATELE T hematology comments: [employer] Not Available [facility] [address] [facility], [place], [address], 06/07/2021 08:19:51 06/06/20 21 06/07/2021 COMP. METAB OLIC PANEL (14) glucose 119 mg/dL 65-99 above high normal Not Available [facility] [address] [facility], [place], [address], 06/07/2021 08:19:51 06/06/20 21 06/07/2021 COMP. METAB OLIC PANEL (14) BUN 7 mg/dL 6-20 Not Available [facility] [address] [place], [address], 06/07/2021 08:19:51 06/06/20 21 06/07/2021 COMP. METAB OLIC PANEL (14) creatinine 0.68 mg/dL 0.57-1 .00 Not Available [facility] [address] [place], [address], 06/07/2021 08:19:51 06/06/20 21 06/07/2021 COMP. METAB OLIC PANEL (14) eGFR if nonafricn AM 114 mL/mi n/1.7 3 >59 Not Available [facility] [address] [facility], [place], [address], 06/07/2021 08:19:51 06/06/20 21 06/07/2021 COMP. METAB OLIC PANEL (14) eGFR if africn AM 131 mL/mi n/1.7 3 >59 Lab radha curre ntly repor ts eGFR in compl iance with the curre nt recom menda tions of the [facility]io n[facility] [employer] y [employer] ation . [facility] will updat e repor ting as new guide lines are publi shed from the NKF-A SN Task force . Not Available [facility] [address] [facility], [place], [address], 06/07/2021 08:19:51 06/06/20 21 06/07/2021 COMP. METAB OLIC PANEL (14) BUN/creatini ne ratio 10 9-23 Not Available [facility] [address] [facility], [place], [address], 06/07/2021 08:19:51 06/06/20 21 06/07/2021 COMP. METAB OLIC PANEL (14) sodium 138 mmol/ L 134-14 4 Not Available [facility] [address] [place], [address], 06/07/2021 08:19:51 06/06/20 21 06/07/2021 COMP. METAB OLIC PANEL (14) potassium 4.5 mmol/ L 3.5-5. 2 Not Available [facility] [address] [place], [address], 06/07/2021 08:19:51 06/06/20 21 06/07/2021 COMP. METAB OLIC PANEL (14) chloride 102 mmol/ L 96-106 Not Available [facility] [address] [place], [address], 06/07/2021 08:19:51 06/06/20 21 06/07/2021 COMP. METAB OLIC PANEL (14) carbon dioxide, total 25 mmol/ L 20-29 Not Available [facility] [address] [place], [address], 06/07/2021 08:19:51 06/06/20 21 06/07/2021 COMP. METAB OLIC PANEL (14) calcium 8.7 mg/dL 8.7-10 .2 Not Available [facility] [address] [facility], [address], 06/07/2021 08:19:51 06/06/20 21 06/07/2021 COMP. METAB OLIC PANEL (14) protein, total 5.9 g/dL 6.0-8. 5 below low normal Not Available [facility] [address] [facility] [place], [address], 06/07/2021 08:19:51 06/06/20 21 06/07/2021 COMP. METAB OLIC PANEL (14) albumin 3.2 g/dL 3.8-4. 8 below low normal Not Available [facility] [address] [facility] [place], [address], 06/07/2021 08:19:51 06/06/20 21 06/07/2021 COMP. METAB OLIC PANEL (14) globulin, total 2.7 g/dL 1.5-4. 5 Not Available [facility] [address] [facility] [place], [address], 06/07/2021 08:19:51 06/06/20 21 06/07/2021 COMP. METAB OLIC PANEL (14) A/G ratio 1.2 1.2-2. 2 Not Available [facility] [address] [facility] [place], [address], 06/07/2021 08:19:51 06/06/20 21 06/07/2021 COMP. METAB OLIC PANEL (14) bilirubin, total <0.2 mg/dL 0.0-1. 2 Not Available [facility] [address] [facility] [place], [address], 06/07/2021 08:19:51 06/06/20 21 06/07/2021 COMP. METAB OLIC PANEL (14) alkaline phosphatase 56 IU/L 44-121 Ple ase note refer ence inter aleksandar villavicencio e Not Available [facility] [address] [facility] [place], [address], 06/07/2021 08:19:51 06/06/20 21 06/07/2021 COMP. METAB OLIC PANEL (14) AST (SGOT) 6 IU/L 0-40 Not Available [facility] [address] [facility], [place], [address], 06/07/2021 08:19:51 06/06/20 21 06/07/2021 COMP. METAB OLIC PANEL (14) ALT (SGPT) 8 IU/L 0-32 Not Available [facility] [address] [facility] [place], [address], 06/07/2021 08:19:51 06/06/20 21 06/07/2021 IRON AND TIBC iron bind.cap.(TI BC) 158 ug/dL 250-45 0 below low normal Not Available [facility] [address] [facility], [place], [address], 06/07/2021 08:19:52 06/06/2006/07/2021 IRON AND TIBC UIBC 123 ug/dL 131-42 5 below low normal Not Available [facility] [address] [facility], [place], [address], 06/07/2021 08:19:52 06/06/20 21 06/07/2021 IRON AND TIBC iron 35 ug/dL 27-159 Not Available [facility] [address] [facility], [place], [address], 06/07/2021 08:19:52 06/06/20 21 06/07/2021 IRON AND TIBC iron saturation 22 % 15-55 Not Available [facility] [address] [facility], [place], [address], 06/07/2021 08:19:52 06/06/2006/07/2021 SENTHIL TIN ferritin 738 NG/mL 15-150 above high normal Not Available [facility] [address] [place], [address], 06/07/2021 08:19:52 06/06/2006/07/2021 C-SALLY CTIVE PROTE IN, QUANT C-reactive protein, quant 44 mg/L 0-10 above high normal Not Available [facility] [address] [facility], [place], [address], 06/07/2021 08:19:53 02/11/2002/13/2025 Skin Patho logy biops y repor t pathology report.secti on heading Dermat opatho logy Report Case: [id number] Author lupis Sierra er: New Riddle MD [facility] riley: 2024 09:40 AM Orderi ng Locati on: [facility] - Receiv ed: 2024 02:16 PM DermPa th Lab Pathol ogist: Jud Dyson MD Specim en: Skin, right calf Not Available Not Available 03:44:57 02/11/2002/13/2025 Skin Patho logy biops y repor t pathology report final diagnosis narrative Specim en A. SKIN, right calf: LENTIG INOUS MELANO CYTIC NEVUS, COMPOU ND TYPE, IRRITA RILEY (D22.7 1) Not Available Not Available 03:44:57 02/11/20 25 02/13/2025 Skin Patho logy biops y repor t pathology report relevant history narrative R/O MM Not Available Not Available 03:44:57 02/11/2002/13/2025 Skin Patho logy biops y repor t pathology report gross observation narrative Specim en A: Receiv ed is one formal in filled contai ner labele d with the raven correa's name and design ated right calf. The specim en consis ts of a shave biopsy measur ing 7x5x1 mm. Jar 0. Not Available Not Available 03:44:57 02/11/2002/13/2025 Skin Patho logy biops y repor t pathology report microscopic observation narrative other stain Specim en A. SKIN, right calf: This is a compou nd nevus. There is kota n pigmen t in the stratu m corneu m. There is a lentig inous prolif eratio n of melano cytes betwee n nevus nests of cells along the dermal epider mal juncti on. There is underl sole fibrop lasia of the papill umberto dermis and collec tions of melano phages . The intrad ermal compon ent is bland in appear ance and mature s with depth. Not Available Not Available 03:44:57 02/11/2002/13/2025 Skin Patho logy biops y repor t service comment An garage worker al and research intern al positi ve and negati ve contro ls are approp riate for the histoc hemica l, immuno histoc hemica l and immuno fluore scence stain( s) in this case (if any), except where stated explic itly. The perfor monica charac terist ics of the stain( s) cited in this report were develo ped and its perfor monica charac terist ic determ ined by the Dermat opatho logy Halima chow at [facility], direct ed by Dr. Thierno Spears . These tests need not be, and theref ore are not, approv ed by the [place] Food and Drug Admini strati on. The tests are used for clinic al ltac, located within [facility]. Billin g Codes Specim en Charge s Stain Charge s 885[address] 1 Not Available Not Available 03:44:57 02/11/2002/13/2025 Skin Patho logy biops y repor t embedded images Not Available Not Available 03/03 03:44:57 Result Notes None recorded. Problems Name Problem SNOMED Code Status Onset Date Resolution Date Notes Provider Name and Address Organization Details Recorded Time Cellulit is 207317876 Completed 201107/20/2012 Location : None;Sev erity: Moderate ;Progres s: Stable;A dded By: Arlyn Sanches;Add to Current Problems : NO Not Available [facility] 7 11:48:38 Pilonida l cyst 57619834 Active 2011 Location : None;Sev erity: Moderate ;Progres s: Stable;A dded By: Yang Hurley d to Current Problems : YES Not Available [facility] 11:48:39 Irritabl e bowel syndrome 75683013 Completed 201212/05/2018 Location : None;Sev erity: Moderate ;Progres s: Stable;A dded By: Renetta Linder;Add to Current Problems : NO NIC Kenney Attn: Accounting ,[address] [place], [address] , [facility] 9 17:28:24 Urinary tract infectio us disease 21469444 Completed 201211/01/2012 Location : None;Sev erity: Moderate ;Progres s: Stable;A dded By: Yajaira Friedman;Add to Current Problems : NO Not Available [facility] 7 11:48:38 Acute pharyngi tis 170633872 Completed 201212/29/2012 Location : None;Sev erity: Moderate ;Progres s: Stable;A dded By: Lauren Tyler; Add to Current Problems : NO Not Available [facility] 7 11:48:39 Acute sinusiti s 62061192 Completed 201212/29/2012 Location : None;Sev erity: Moderate ;Progres s: Stable;A dded By: Phyllis Fuentes;Add to Current Problems : NO Not Available [facility] 11:48:39 Acute cystitis 26441283 Completed 201204/24/2013 Location : None;Sev erity: Moderate ;Progres s: Stable;A dded By: Helena Wilde; Add to Current Problems : NO Not Available [facility] 11:48:39 Dysuria 20019763 Completed 201204/24/2013 Location : None;Sev erity: Moderate ;Progres s: Stable;A dded By: Helena Wilde; Add to Current Problems : NO Not Available [facility] 11:48:39 Acute tonsilli tis 96554911 Completed 201310/06/2013 Location : None;Sev erity: Moderate ;Progres s: Stable;A dded By: Renetta Linder;Add to Current Problems : NO Not Available [facility] 11:48:38 Pregnanc y 82688266 Completed 201312/05/2018 Location : None;Sev erity: Moderate ;Progres s: Stable;A dded By: Renetta Linder;Add to Current Problems : NO NIC Kenney Attn: Accounting ,[address] [place], [address] , [facility] 9 17:28:26 Acute sinusiti s 52102435 Completed 201310/06/2013 Location : None;Sev erity: Moderate ;Progres s: Stable;A dded By: Megan Medrano i;Randal dd to Current Problems : NO Not Available [facility] 7 11:48:38 Pilonida l cyst 94128006 Completed 201302/22/2014 Location : None;Sev erity: Moderate ;Progres s: Stable;A dded By: Megan Medrano i;Randal dd to Current Problems : NO Not Available [facility] 7 11:48:39 Acute sinusiti s 85822233 Completed 201309/18/2014 Location : None;Sev erity: Moderate ;Progres s: Stable;A dded By: Nadia Hurley;Kishor d to Current Problems : NO Not Available [facility] 7 11:48:39 Acute sinusiti s 56406556 Completed 201411/30/2014 Location : None;Sev erity: Moderate ;Progres s: Stable;A dded By: Cathy Matson;Add to Current Problems : YES Not Available [facility] 7 11:48:38 Female genital organ symptoms 282555605 Completed 201411/30/2014 Location : None;Sev erity: Moderate ;Progres s: Stable;A dded By: Arlyn Sanches;Add to Current Problems : YES Not Available [facility] 7 11:48:39 Acute upper respirat ory infectio n of multiple sites Completed 201505/08/2016 Location : None;Sev erity: Moderate ;Progres s: Stable;A dded By: Arlyn Sanches;Add to Current Problems : NO Not Available [facility] 7 11:48:39 Ulcerati ve colitis 13442893 Active 2018 NIC Kenney Attn: Accounting ,[address] [place], [address] , [facility] 9 17:28:37 Iron deficien cy 92414864 Active 2018 NIC Kenney Attn: Accounting ,[address] [place], [address] , [place] [facility] 9 12:32:15 Hashimot o thyroidi tis 48383571 Active 2024 NIC Kenney Attn: Accounting ,[address] , [place], [address] , [facility] 5 12:36:22 Problem Notes None recorded. Procedures Surgical History Date Name Laterality Status Provider Name and Address Organization Details Recorded Time 06/03/20 23 total colectomy completed Arlyn Dow MA [facility] 03/20/2025 11:47:07 06/03/20 23 appendectomy completed Arlyn Dow MA [facility] 03/20/2025 11:47:32 11/02/19 19 Endometrial cryoablation completed Hair Denise MA [facility] 04/03/2019 11:37:11 Imaging Results None recorded. Procedure Notes None recorded. Medical Equipment None Reported. Allergies Allergen ID Allergen Name Allergen Category Reaction Reaction Severity Criticality Documentation Date Start Date Code Code System Note Provider Name and Address Organization Details Recorded Time Substance with sulfonami de structure and antibacte rial mechanism of action (substanc e) medicatio n facial swelling mild Not available 03/20/2025 66027 8003 SNOMED Arlyn Dow MA null, [place] - [facility] 5 11:48:55 35126 honey bee venom environme nt Not available Not available Not available 09/06/20162011 63725 7 RxNorm Sever ity: Moder ate; Comme nt: Aller gy Type: Aller gy; Not Available [facility] 7 03:48:23 Medications Name Sig Start Date Stop Date Status Note LastModified by Organization Details LastModified Time compound drug active Not Available Not Available Not Available amoxicilli n 500 mg capsule Take 1 capsule(s ) by mouth q8h for 10 days 01/11 completed RxNorm : 140240 ;Allow Substi tution : True Not Available [...] completed Not Available Not Available Not Available diphenoxyl ate-atropi ne 2.5 mg-0.025 mg tablet TAKE 2 TABLETS BY MOUTH TWICE DAILY active Not Available Not Available No t Available Tamiflu 75 mg capsule Take 1 [...] for 7 days 05/26 completed RxNorm : 540177 ;Allow Substi tution : True Not Available Not Available Not Available amoxicilli n 875 mg tablet Take 1 tablet po bid with food for 7 days 04/03 completed Not Available Not Available Not Available sulfacetam jayme sodium 10 % eye drops 10/15 completed Not Available Not Available Not Available benzonatat e 100 mg capsule 04/03 completed Not Available Not Available Not Available levothyrox ine 50 mcg tablet Take 1 tablet every day by oral route. 2024 active Not Available Not Available Not Avai lable Cipro 500 mg tablet Take 1 tablet(s) by mouth q12h for 10 days 11/10 completed RxNorm : 988793 ;Allow Substi tution : True Not Available Not Available Not Available budesonide DR Jenifer AGUIRRE 3 mg capsule,de nicci shahid nded release 04/03 completed Not Available Not [...] Available Not Available cefdinir 300 mg capsule Take 1 capsule every 12 hours by oral route. active Not Available Not Available No t Available dicyclomin e 10 mg capsule TAKE [...] Available Stelara 90 mg/mL subcutaneo us syringe 03/20 completed Not Available Not Available Not Available Xeljanz 5 mg tablet Take 1 tablet every day by oral route. 03/20 completed Not Available Not Available Not Available Diclegis 10 mg-10 mg tablet,del ayed release 10/15 completed Not Available Not Available Not Available Entyvio 300 mg intravenou s solution Inject every month by intraveno us route. 03/20 completed Not Available Not Available Not Available Flonase Allergy Relief active Not Available Not Available Not Available Vitals Date Recorded Body height Body mass index (BMI) Body weight Body temperature Oxygen saturation Oxygen saturation in Arterial blood by Pulse oximetry Heart rate Systolic And Diastolic Provider Name and Address Organization Details Last Updated DateTime 5 169.55 cm 28.9 kg/m2 21494.1 g 98.6 [degF] 99 % 99 % 78 /min 121/79 mm[Hg] Arlyn Dow MA [facility] 5 11:58:26 Date Recorded Body height Body mass index (BMI) Body weight Oxygen saturation Oxygen saturation in Arterial blood by Pulse oximetry Heart rate Body temperature Systolic And Diastolic Provider Name and Address Organization Details Last Updated DateTime 9 170.18 cm 25.7 kg/m2 33197.5 g 99 % 99 % 73 /min 98.7 [degF] 110/62 mm[Hg] Hair Denise MA [facility] 9 11:33:48 Date Recorded Body height Body mass index (BMI) Body weight Body temperature Oxygen saturation Oxygen saturation in Arterial blood by Pulse oximetry Heart rate Systolic And Diastolic Provider Name and Address Organization Details Last Updated DateTime 9 170.18 cm 25.7 kg/m2 51796.1 5 g 98.5 [degF] 98 % 98 % 83 /min 115/75 mm[Hg] Linda Araiza [facility] 9 11:21:25 Social History Question Answer Notes LastModified by Organizat ion Details LastModified Time Tobacco Smoking Status [facility]/2017 11:10:03 Do You Have An Advance Directive? No Information not available 06/06/2021 Are You Blind Or Do You Have Difficulty Seeing? No Information not available 06/06/2021 What Is Your Level Of Caffeine Consumption? None Information not available 06/06/2021 Are You Deaf Or Do You Have Serious Difficulty Hearing? No Information not available 06/06/2021 What Type Of Diet Are You Following? REGULAR Information not available 06/06/2021 What Was The Date Of Your Most Recent Tobacco Screening? 03/20/2025 [email or web address] Information not available 03/20/2025 What Is Your Relationship Status? Information not available 06/06/2021 Do You Use Your Seat Belt Or Car Seat Routinely? Yes Information not available 06/06/2021 Do You Have Smoke And Carbon Monoxide Detectors In Your Home? Yes Information not available 06/06/2021 Are You Passively Exposed To Smoke? No Information no t available 06/06/2021 Sex: Female Functional Status Question Answer Note LastModified by Organizat ion Details LastModified Time Do you use any illicit or recreational drugs? No Information not available 06/06/2021 What is your level of alcohol consumption? Occasional Information not available 06/06/2021 Are you currently employed? Yes Information not available 06/06/2021 Are you able to care for yourself? Yes Information n ot available 06/06/2021 What is your exercise level? Occasional Information not available 06/06/2021 Mental Status Question Answer Note LastModified by Organization D etails LastModified Time Do you feel stressed (tense, restless, nervous, or anxious, or unable to sleep at night)? [id number] Information not available 06/06/2021 Family History Nothing Reported. Medical History No medical history recorded. Gynecological History Statement/Question Response Menses Monthly N Obstetrics History GPAL:G 0 P 0 0 0 0 Immunizations Vaccine Type Date Status Note Provider Nam e and Address Organization Details Recorded Time Influenza, split virus, quadrivalent, preservative 9 completed [place] [facility] 07/24/2019 15:42:49 zoster, unspecified formulation 9 completed [place] [facility] 07/24/2019 15:43:45 COVID-19, mRNA, LNP-S, PF, 30 mcg/0.3 mL dose 0 completed [place] [facility] 06/06/2021 11:22:26 COVID-19, mRNA, LNP-S, PF, 30 mcg/0.3 mL dose 1 completed [place] [facility] 06/06/2021 11:22:39 Pneumococcal conjugate PCV 13 9 completed Not Available [facility] 03/20/2025 11:41:11 pneumococcal polysaccharide PPV23 9 completed Not Available [facility] 03/20/2025 11:41:11 Influenza, split virus, quadrivalent, PF 1 completed Not Available [facility] 03/20/2025 11:41:11 COVID-19, mRNA, LNP-S, PF, 30 mcg/0.3 mL dose 2 completed Not Available [facility] 03/20/2025 11:41:11 Hep B, adult 4 completed Not Available [facility] 03/20/2025 11:41:11 Hep B, adult 5 completed Not Available [facility] 03/20/2025 11:41:11 Hep B, adult 5 completed Not Available [facility] 03/20/2025 11:41:11 Influenza, split virus, quadrivalent, preservative 7 completed Not Available [facility] 09/20/2019 02:49:07 Tdap 2 completed Not Available [facility] 09/06/2016 05:57:09 Past Encounters Encounter ID Performer Location Encounter Start Date Encounter Closed Date Diagnosis/Indication Diagnosis SNOMED-CT Code Diagnosis ICD10 Code Diagnosis Note [id number] Mao Linder MD [facility] [address] [place] [address] 07/19/2016 14:04:36 07/21/2016 13:38:45 Adult health examination 288662514 Z00.00 preclinica l form, flu shot already [id number] Mao Linder MD [facility] Medicine [address] [place] [address] 10/26/2016 14:10:14 10/27/2016 11:46:54 Influenza-like illness 46184803 B34.9 will rech flu swab tomorrow and start tamiflu if positive. Delsym is fine, lots of fluids. [id number] Mao Linder MD [facility] [address] [place] [address] 06/01/2017 13:52:33 06/01/2017 14:47:23 Administration of influenza vaccine 18317250 Z23 [id number] Phyllis Fuentes [facility] [address] [place] [address] 10/15/2017 10:51:26 10/15/2017 17:37:13 Hyperlipidemia screening 936679595 Z13.220 Goiter 6946736 E04.9 no preference on location, [facility] or [facility] fine Fatigue 93607685 R53.83 [id number] Phyllis Fuentes MD [facility] [address] [place] [address] 10/22/2017 10:30:54 10/25/2017 09:40:08 Iron deficiency anemia 80045637 D50.9 [id number] Phyllis Fuentes MD [facility] [address] [place] [address] 04/23/2018 11:11:21 04/24/2018 11:27:22 Chronic diarrhea 104999777 K52.9 History of anemia - iron deficient 680315048 Z86.2 Acute laryngitis 1883902 J04.0 Hematochezia 958494508 K 62.5 [id number] NIC Kenney [facility] [address] [place] [address] 04/03/2019 11:24:34 04/03/2019 14:10:10 Abdominal pain 49111067 R10.9 Acute urin umberto tract infection 618582837 N39.0 discussed hydration, which she seems to be very intentiona l in trying to keep up, but even liquids go straight through her. Await culture to confirm UTI. Ulcerative colitis 28042 004 K51.00 per GI team at [facility] [id number] NIC Kenney [facility] [address] [place] [address] 05/01/2019 11:08:48 05/01/2019 12:21:16 Acute sinusitis 62312565 J01.90 continue antihistam ine, saline NS, etc. Call with any fevers or if no better Immunosuppression 015978 05 D84.9 [id number] Phyllis Fuentes MD [facility] [address] [place] [address] 04/02/2020 10:41:51 04/02/2020 13:26:44 Acute sinusitis 58342665 J01.90 continue antihistam ine, saline NS, etc. Call with any fevers or if no better. Will let me know about her COVID results next week. Patient immunocompromised 978687807 D84.9 Ulcerative colitis 52858 004 K51.00 per GI team at [facility], JUST had scope in January and this was the first time that it showed any improvemen t at all. Still active but not ulcerative and no bleeding. Deviated nasal septum 12 0092340 J34.2 continue budesonide nasal rinse per ENT instructio n [id number] Phyllis Fuentes MD [facility] [address] [place] [address] 06/06/2021 09:59:26 06/06/2021 16:02:45 Ulcerative colitis 18844002 K51.00 I spoke with [facility] Gi clinic, and the nurse there was going to give Kisha's info to Dr. Oconnor' s MA who runs the IBD side of the clinic, and she will personally give her a call to schedule appt. Kisha will come in today to have labs drawn here at [facility] Iron defic iency anemia 44892828 D50.9 Diarrhea 52752904 R19.7 Health Concerns Section Related Observation LastModified by Organization Detai ls LastModified Time None Recorded Concern Status LastModified by Organization Details LastModified Time None Recorded Advance Directives Directive N: Payers Insurance Date Sequence Insurance Name Policy Number Policy Bowens Covered Member ID Bowens Member ID Guarantor Name 06/06/2021 1 [employer] [id number] Kisha Santos [id number] Kisha Santos 03/20/2025 1 R (PPO) [id number] Kisha Santos [id number] Kisha Santos 04/02/2020 1 [facility] [id number] Xavi Santos [id number] Kisha Santos 03/20/2025 1 [facility] (PPO) [id number] Kisha Santos [id number] Kisha Santos Notes Date Note Type Note Provider Name and Address Organization Details Recorded Time 04/03/2019 text/html Abdominal PainRe ported bypatient.Location:[facility] (flank); [...] GI team. NIC Kenney Attn: Accounting[address] [place], [address], [facility] 04/04/2019 12:07:31 05/01/2019 text/html Sinusitis/Allerg yRepor riley bypatient.Location:fro ntal Associated Symptoms:nasal discharge from both nostrils;sinus pain [...] around eyes. NIC Kenney Attn: Accounting,[address] [facility], [place], [address], [facility] 05/01/2019 12:06:04 04/02/2020 text/html Sinusitis/Allerg yRepor riley bypatient.Associated Symptoms:nasal discharge from both nostrils;fever/chills( no [...] the healthcare field. Just got back from [place], rented a house, cooked everything at home. Brother and sister in law got tested this week as well and were negative for viral URI. always takes zyrtec and flonase with steroid rinse. Has been off of the rinse. NIC Kenney Attn: Accounting[address] [place], [address], [facility] 04/02/2020 12:07:05 06/06/2021 text/html Generic HPI TemplateReported [...] no help at all, infusions and shots. Xelyvonne she was also on it at the [...] and fatigue. NIC Kenney Attn: Accounting[address] [place], [address], [facility] 06/06/2021 15:55:40 OBGyn Episode No OBEpisode recorded.
--- OUTSIDE RECORDS SUMMARY | 2025-03-20 12:56 | XMS_ITS | Clinical Summary ---
Author Organization [facility] Address [facility] [place] [address] Care Team Providers Care Certified Dental Assistant Name Role Phone Phyllis Fuentes MD Primary Care Provider [phone] Social History Tobacco Use Types Packs/Day Years [...] 01/07/2016 COVID-19 Vaccine (2023-2 5 season) 2024 HPV Vaccines Aged Out No longer eligi ble based on patient's age to complete this topic Meningococcal B Vaccine Aged Out No l onger eligible based on patient's age to complete this topic Meningococcal Vaccine Aged Out No kaye pilar eligible based on patient's age to complete this topic Pneumococcal Vaccine: Pediat rics (0 to 5 Years) and At-Risk Patients (6 to 49 Years) Aged Out No longer eligible b ased on patient's age to complete this topic RSV Immunizations Under 20 Months Aged Out No longer eligible based on patient's age to complete this topic Care Teams Certified Dental Assistant Relationship Specialty Start Date End Date Phyllis Fuentes MD PCP - General 11/10/11
--- OUTSIDE RECORDS SUMMARY | 2025-03-20 12:56 | XMS_ITS | Encounter Summary ---
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
--- OUTSIDE RECORDS SUMMARY | 2025-03-20 12:56 | XMS_ITS | Encounter Summary ---
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
--- OUTSIDE RECORDS SUMMARY | 2025-03-20 12:56 | XMS_ITS | Clinical Summary ---
Author Organization [facility] Address [address] [place] [address] Phone Care Team Providers Care Carder Blankets Name Role Phone Arlyn Sanches Primary Care Provider [phone] Social History Tobacco Use Types Packs/Day Years [...] of 3 - 19+ 3-dose series) 2005 HPV/Cotest (21-29) 2007 CERVICAL CANCER SCREENING 01/07/2016 HPV/Cotest (30-65) 01/07/2016 PAP SMEAR 01/07/2016 DTAP/TDAP/TD VACCINES (2 - T d or Tdap) 02/22/2022 02/23/2012 INFLUENZA VACCINE (#1) 2025 06/01/2017 HPV VACCINES Aged Out No longer eligi ble based on patient's age to complete this topic Care Teams Carder Blankets Relationship Specialty Start Date End Date Arlyn Sanches PA [address] [address] PCP - General Physician Seals Engraver 06/08/21
[2025-03-20 13:26] LABS: Hematocrit 35.8 % (37.0-47.0); Hemoglobin 11.1 g/dL (12.0-15.0); Immature Granulocyte Percent A 0.3 % (0-0.5); Lymphocytes Absolute Auto 2.71 K/mm3 (0.9-3.2); Mean Corpuscular HGB Conc 31.0 g/dl (32-36); Mean Corpuscular Hemoglobin 25.2 pg (26-34); Mean Corpuscular Volume 81.2 fl (80-100); Nucleated Red Blood Cells Absolute Auto 0.000 K/mm3 (0.0-0.012); Nucleated Red Blood Cells Perc 0.0 % (0.0-0.2); Platelet Count Result 375 k/mm3 (150-375); Red Blood Count 4.41 M/mm3 (4.2-5.4); White Blood Count 7.9 K/mm3 (4.5-10.0)
[2025-03-20 13:40] LABS: Iron 55 ug/dL (37-170)
[2025-03-20 13:50] LABS: Alanine Aminotransferase 26 U/L (6-35); Albumin Level 4.5 g/dL (3.5-5.1); Alkaline Phosphatase 64 U/L (38-126); Aspartate Amino Transferase 20 U/L (14-36); Bilirubin,Total 0.5 mg/dL (0.2-1.3); Blood Urea Nitrogen 11 mg/dL (7-17); Calcium 9.7 mg/dL (8.4-10.2); Carbon Dioxide 24 mmol/L (22-30); Cholesterol 195 mg/dL (0-200); Estimated Glomerular Filt Rate > 60; Glucose 83 mg/dL (65-110); HDL Direct 81 mg/dL; Percent Iron Saturation 15 % (20-50); Total Protein 8.4 g/dL (6.3-8.2); Triglycerides 47 mg/dL (<150)
[2025-03-20 13:59] LABS: Free T4 Free Thyroxine 0.95 ng/dL (0.78-2.19)
[2025-03-20 14:04] LABS: Free T3 4.42 pg/mL (2.32-6.09)
[2025-03-20 14:17] LABS: Ferritin 21.90 ng/mL (6.24-137)
[2025-03-20 14:24] LABS: Anion Gap 10 mmol/L (4-12); Chloride 105 mmol/L (98-107); Potassium 3.8 mmol/L (3.4-5.0); Sodium 139 mmol/L (137-145)
[2025-03-20 14:26] LABS: Thyroid Stimulating Hormone 2.400 uIU/mL (0.465-4.680)
== END 2025-03-20 12:53 | disposition home or self-care (01) ==
LOC: ANHLAB 12:54
PROVIDERS: PCP Physician Assistant; Visit Provider Physician Assistant
DX: E06.3 Autoimmune thyroiditis (principal); K51.00 Ulcerative (chronic) pancolitis without complications; Z13.220 Encounter for screening for lipoid disorders
CPT/HCPCS: 36415; 80053; 80061; 82728; 83540; 83550; 84439; 84443; 84481; 85025; 86800

== ENCOUNTER 2025-06-19 12:51 | Outpatient (CLI) | payer OTHER, SELFPAY ==
--- OUTSIDE RECORDS SUMMARY | 2025-06-19 13:04 | XMS_ITS | Clinical Summary ---
Author Organization [facility] Address [address] [place] [address] Phone Care Team Providers Care Unix Consultant Name Role Phone Arlyn Sanches Primary Care Provider [phone] Social History Tobacco Use Types Packs/Day Years [...] (1 of 3 - 19+ 3-dose series) 02/2005 HPV/Cotest (21-29) 2007 HPV VACCINES (1 - 3-dose SCDM series) 2013 CERVICAL CANCER SCREENING 01/07/2016 HPV/Cotest (30-65) 01/07/2016 PAP SMEAR 01/07/2016 DTAP/TDAP/TD VACCINES (2 - Td or Tdap) 02/22/2022 INFLUENZA VACCINE (#1) 2025 06/01/2017 Care Teams Unix Consultant Relationship Specialty Start Date End Date Arlyn Sanches PA [address] [address] PCP - General Physician Public Works Director 06/08/21
--- OUTSIDE RECORDS SUMMARY | 2025-06-19 13:04 | XMS_ITS | Clinical Summary ---
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 Gender Identity Not on file Sexual Orientation Not on file Plan of Treatment Health Maintenance Due Date Last Done Comments Hepatitis C Virus (HCV) Screening 1986 Hepatitis B Immunization (1 of 3 - 19+ 3-dose series) 2005 Pap Smear 2007 Human Papillomavirus (HPV) Immunization (1 - 3-dose SCDM series) 2013 Cervical Cancer Screening (CCS) 01/07/2016 HPV/Cotest 01/07/2016 Influenza Immunization (#1) 2025 06/01/2017 SARS-COV-2 Immunization ( - season) 2025 08/24/2020 Respiratory Syncytial Virus (RSV) Immunization (Adult) (1 - 1-dose 75+ series) 2061 DTaP/Tdap/Td Immunization Discontinued 02/23/2012 TdaP Immunization Completed 02/23/2012 Meningococcal Immunization (ACWY) Aged Out No longer eligible based on patient's age to complete this topic Pneumococcal Immunization Combined Aged Out No longer eligible based on patient's age to complete this topic Rotavirus Immunization Aged Out No lo nger eligible based on patient's age to complete this topic
--- OUTSIDE RECORDS SUMMARY | 2025-06-19 13:04 | XMS_ITS | Encounter Summary ---
Author Organization [facility] Address [address] [place] [address] Care Team Providers Care Parts Delivery Driver Name Role Phone Unavailable Primary Care Provider Unavailabl e Encounter Details Date Type Department Care Team (Late st Contact Info) Description 07/08/2024 Lab Requisition [facility] - DermPath Lab [address] [facility], [place] [address] Diamond Cote MD [address] [facility] 3 [place] [address] Social History Tobacco Use Types Packs/Day Years Used Date Smoking Tobacco: Never Assessed Comments Unknown Sex and Gender Information Value Date Recorded Sex Assigned at Not on file Legal Sex Female 7:20 PM NEWS GATHERING TECHNICIAN Gender Identity Not on file Sexual Orientation Not on file documented as of this encounter Plan of Treatment Not on file documented as of this encounter Procedures Procedure Name Priority Date/Time Associated Diagnosis Comments DERMATOPATHOLOGY Routine 07/08/2024 10:1 0 AM NEWS GATHERING TECHNICIAN documented in this encounter Results * DERMATOPATHOLOGY (07/08/2024 10:10 AM NEWS GATHERING TECHNICIAN) Case Report Dermatopathology Report Case: [id number] Authorizing Provider: Diamond Cote MD Collected: 07/08/2024 10:10 AM Ordering Location: [facility] Physician [facility] - Received: 07/09/2024 09:38 AM DermPath Lab Pathologist: Mario Spears MD Specimen: Skin, right medial foot 4 3:54 PM NEWS GATHERING TECHNICIAN DERMATOPATHOLOGY LABORATORY Final Diagnosis Specimen A. SKIN, right medial foot: DERMAL SCAR; PRESENT AT MARGIN RESIDUAL MELANOCYTIC PROLIFERATION NOT IDENTIFIED (L90.5) (see microscopic description) 4 3:54 PM NEWS GATHERING TECHNICIAN DERMATOPATHOLOGY LABORATORY at 1554 NEWS GATHERING TECHNICIAN Clinical History BX proven FIDE prolif 4 3:54 PM [facility] DERMATOPATHOLOGY LABORATORY Gross Description Specimen [...] cassette 2. Jar 0. 4 3:54 PM [facility] DERMATOPATHOLOGY LABORATORY Microscopic Description Specimen A. SKIN, right medial foot: There are fibroblasts and collagen bundles oriented parallel to the skin surface. There are elongated blood vessels, some of which are oriented perpendicular to the skin surface. No residual melanocytic proliferation is identified. The scar is present at the base of the specimen. 3:54 PM [facility] DERMATOPATHOLOGY LABORATORY Disclaimer An external and internal positive and negative controls are appropriate for the histochemical, immunohistochemical and immunofluorescence stain(s) in this case (if any), except where stated explicitly. The performance characteristics of the stain(s) cited in this report were developed and its performance characteristic determined by the Dermatopathology Laboratory at [facility], directed by Dr. Thierno Spears. These tests need not be, and therefore are not, approved by the [place] Food and Drug Administration. The tests are used for clinical purposes. Billing Codes Specimen Charges Stain Charges 31969 1 4 3:54 PM [facility] DERMATOPATHOLOGY LABORATORY Embedded Images 4 3:54 PM [facility] DERMATOPATHOLOGY LABORATORY Pathology/Cytolo gy TISSUE SPECIMEN FROM SKIN / Unknown 07/08/2024 10:10 AM NEWS GATHERING TECHNICIAN 07/09/2024 9:38 AM NEWS GATHERING TECHNICIAN us Diamond Cote MD LAB - PATHOLOGY/CYTOLOGY OR DERABLES Final Result DERMATOPATHOLOGY LABORATORY [facility] - Department of Dermatology [address] [place] [address], [facility] [phone] documented in this encounter Visit Diagnoses Not on filedocumented in this encounter
--- OUTSIDE RECORDS SUMMARY | 2025-06-19 13:04 | XMS_ITS | Encounter Summary ---
Author Organization [facility] Address [address] [place] [address] Care Team Providers Care Compounding Pharmacy Technician Name Role Phone Unavailable Primary Care Provider Unavailabl e Encounter Details Date Type Department Care Team (Late st Contact Info) Description 01/04/2018 Lab Requisition [facility] Care DermPath Lab [address] [facility], [place] [phone] Reji Jones MD [address] [place] [address] Social History Tobacco Use Types Packs/Day Years Used Date Smoking Tobacco: Never Assessed Comments Unknown Sex and Gender Information Value Date Recorded Sex Assigned at Not on file 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 Check margins. 3:16 PM [facility] DERMATOPATHOLOGY LABORATORY Gross Description Specimen A: Received is one formalin filled container labeled with the patient's name and designated left medial breast. The specimen consists of a shave biopsy measuring 3u0q9gm. The margin is inked green. Jar 0. Specimen B: Received is one formalin filled container labeled with the patient's name and designated epigastrium. The specimen consists of a shave biopsy measuring 52c9a0sm. The margin is inked green. Jar 0. Specimen C: Received is one formalin filled container labeled with the patient's name and designated right under right jawline. The specimen consists of a shave biopsy measuring 2e0z7ug. The margin is inked green. Jar 0. Specimen D: Received is one formalin filled container labeled with the patient's name and designated right lat abdomen. The specimen consists of a shave biopsy measuring 6m1s3lu. The margin is inked green. Jar 0. [...] the Dermatopathology Laboratory at [facility]. These tests need not be, and therefore are not, approved by the [place] Food and Drug Administration. The tests are used for clinical purposes. Billing Codes Specimen Charges Stain Charges 24913 00718 77616 33612 1 1 1 1 10089 1 3:16 PM CDT DERMATOPATHOLOGY LABORATORY Embedded [...] PATHOLOGY/CYTOLOGY ORD ERABLES Final Result DERMATOPATHOLOGY LABORATORY [facility] - Department of Dermatology [address] [facility], 5th Floor Lab B [address] [phone] documented in this encounter Visit Diagnoses Not on filedocumented in this encounter
--- OUTSIDE RECORDS SUMMARY | 2025-06-19 13:04 | XMS_ITS | Encounter Summary ---
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
--- OUTSIDE RECORDS SUMMARY | 2025-06-19 13:04 | XMS_ITS | Encounter Summary ---
Author Organization [facility] Address [address] [facility] [place] [address] Care Team Providers Care Parimutuel Ticket Cashier Name Role Phone Unavailable Primary Care Provider Unavailabl e Encounter Details Date Type Department Care Team (Late st Contact Info) Description 04/03/[address] 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 Gender Identity Not on file Sexual Orientation Not on file documented as of this encounter Plan of Treatment Not on file documented as of this encounter Procedures Procedure Name Priority Date/Time Associated Diagnosis Comments DERMATOPATHOLOGY Routine 04/02/2018 12:0 0 AM CDT documented in this encounter Results * DERMATOPATHOLOGY (04/02/2018 12:00 AM CDT) Case Report Dermatopathology Report Case: [id number] Authorizing Provider: Reji Jones MD Collected: 04/02/2018 [...] WITH ARCHITECTURAL DISORDER) (D22.72) 8 4:09 PM [facility]NOTE 3[facility] DERMATOPATHOLOGY LABORATORY at 1609 CDT Clinical History A-D: R/O Dys nevus. 8 4:09 PM [facility]NOTE 3] DERMATOPATHOLOGY LABORATORY Gross Description Specimen A: Received is one formalin filled container labeled with the patient's name and designated right lateral posterior hip above buttock. The specimen consists of a shave biopsy measuring 49o3i8yf. Jar 0. Specimen B: Received is one formalin filled container labeled with the patient's name and designated right lower breast. The specimen consists of a shave biopsy measuring 88z3i7ik. Jar 0. Specimen C: Received is one formalin filled container labeled with the patient's name and designated left lateral thigh below buttock. The specimen consists of a shave biopsy measuring 2e6t5ny. Jar 0. Specimen D: Received is one formalin filled container labeled with the patient's name and designated left medial lower leg above ankle. The specimen consists of a shave biopsy measuring 05m2w1sz. Jar 0. 8 4:09 PM T DERMATOPATHOLOGY [...] by the Dermatopathology Laboratory at [facility]. These tests need not be, and therefore are not, approved by the [place] Food and Drug Administration. The tests are used for clinical purposes. Billing Codes Specimen Charges Stain Charges 41224 99300 70953 68006 1 1 1 1 09305 1 8 4:09 PM CDT DERMATOPATHOLOGY LABORATORY [...] DERMATOPATHOLOGY LABORATORY [facility] - Department of Dermatology [address] [place] [address], [address] [place] [address], [facility] [phone] documented in this encounter Visit Diagnoses Not on filedocumented in this encounter
--- OUTSIDE RECORDS SUMMARY | 2025-06-19 13:04 | XMS_ITS | Clinical Summary ---
Author Organization [facility] Address [facility] [place] [address] Care Team Providers Care Student Services Vice President Name Role Phone Phyllis Fuentes MD Primary Care Provider [phone] Social History Tobacco Use Types Packs/Day Years [...] of 3 - 19+ 3-dose series) 2005 HPV Vaccines (1 - 3-dose SCD M series) 2013 Cervical Cancer Screening Pa p with HPV Testing (Age 30 to 64) Every 5 Years 01/07/2016 Cervical Cancer Screening with HPV 01/07/2016 COVID-19 Vaccine (2023-2 5 season) 2025 Influenza Adult (#1) 2025 Meningococcal B Vaccine Aged Out No l [...] age to complete this topic Care Teams Student Services Vice President Relationship Specialty Start Date End Date Phyllis Fuentes MD PCP - General 11/10/11
--- OUTSIDE RECORDS SUMMARY | 2025-06-19 13:04 | XMS_ITS | Encounter Summary ---
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
--- OUTSIDE RECORDS SUMMARY | 2025-06-19 13:04 | XMS_ITS | Encounter Summary ---
Author Organization [facility] Address [address] [facility] [place] [address] Care Team Providers Care Set And Exhibit Designer Name Role Phone Unavailable Primary Care Provider Unavailabl e Encounter Details Date Type Department Care Team (Late st Contact Info) Description 06/23/2024 Lab Requisition [facility] Physician [facility] - DermPath Lab [address] [facility], [facility] [place] [phone] Leonarda Grimm PA [address] [place] [address] Social History Tobacco Use Types Packs/Day Years Used Date Smoking Tobacco: Never Assessed Comments Unknown Sex and Gender Information Value Date Recorded Sex Assigned at Not on file 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 Gender Identity Not on file Sexual Orientation Not on file documented as of this encounter Plan of Treatment Not on file documented as of this encounter Procedures Procedure Name Priority Date/Time Associated Diagnosis Comments DERMATOPATHOLOGY Routine 06/23/2024 2:40 PM CDT documented in this encounter Results * DERMATOPATHOLOGY (06/23/2024 2:40 PM CDT) Case Report Dermatopathology Report Case: [id number] Authorizing Provider: Leonarda Grimm PA Collected: 06/23/2024 02:40 PM Ordering Location: [facility] - Received: 06/24/2024 12:14 PM DermPath Lab [...] atypia, irregular border, irregular color 1:27 PM [facility] DERMATOPATHOLOGY LABORATORY Gross Description Specimen A: Received [...] measuring 5x4x1 mm. Jar 0. 1:27 PM [facility] DERMATOPATHOLOGY LABORATORY Microscopic Description Specimen A. SKIN, [...] characteristic determined by the Dermatopathology Laboratory at [facility], directed by Dr. Thierno Spears. These tests need not be, and therefore are not, approved by the [place] Food and Drug Administration. The tests are used for clinical purposes. Billing Codes Specimen Charges Stain Charges 03048 42987 1 1 95742 24681 80896 1 1 1 4 1:27 PM CDT DERMATOPATHOLOGY LABORATORY Embedded Images 1:27 PM CDT DERMATOPATHOLOGY LABORATORY Pathology/Cytology TISSUE SPECIMEN FROM SKIN / Unknown 06/23/2024 2:40 PM CDT 06/24/2024 12:14 PM CDT Miscellaneous samples (specimen) TISSUE SPECIMEN FROM SKIN / Unknown 06/23/2024 2:40 PM CDT 06/24/2024 12:14 PM CDT Leonarda LUCERO LAB - PATHOLOGY/CYTOLOGY ORDERAB LES Final Result DERMATOPATHOLOGY LABORATORY [facility] - Department of Dermatology [facility] [address] [place] [address], [address]rd [address] [phone] documented in this encounter Visit Diagnoses Not on filedocumented in this encounter
--- OUTSIDE RECORDS SUMMARY | 2025-06-19 13:04 | XMS_ITS | Clinical Summary ---
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 Colon: Colonoscopy as above. She does not meet high risk colon cancer surveillance as yet. SEAM RUBBER: Annual PAP smear recommended if she begins [...] (06/12/2019): Added automatically from request for surgery [id number] Ulcerative pancolitis with complication 12/23/2018 03/16/2019 Overview [...] infection. 1. Submit for Entyvio [facility] at [facility] or [facility] 5 2. Bridge patient with Entocort/Uceris for 6 weeks 3. Patient can use Imodium low-dose to reduce stool frequency Encounters Date Type Department Care Team Description 05/20/2025 Telephone [facility] Medicine Gastroenterology [address] 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 Gender Identity Not on file Sexual Orientation Not on file Obstetrics History Last Filed Vital Signs Vital Sign Reading Time Taken Comments Blood Pressure 114/68 10/14/2024 2:08 PM HEAT TREATING OPERATOR Pulse 95 10/08/2024 2:41 PM HEAT TREATING OPERATOR Temperature 36.7 C (98.1 F) 10/08/2024 2:41 PM HEAT TREATING OPERATOR Respiratory Rate 16 05/09/2024 10:20 AM CDT Oxygen Saturation 99% 05/09/2024 10:20 AM CDT Inhaled Oxygen Concentration - - Weight 83.5 kg (184 lb) 10/14/2024 2:08 PM HEAT TREATING OPERATOR Height 170.2 cm (5' 7) 10/08/2024 2:41 PM HEAT TREATING OPERATOR Body Mass Index 28.82 10/08/2024 2:41 PM HEAT TREATING OPERATOR Plan of Treatment Health Maintenance Due Date Last Done Comments Depression Screening 1986 Hepatitis C Screening 1986 Varicella Vaccines (1 of 2 - 13+ 2-dose series) 1999 HPV Vaccines (1 - 3-dose SCDM series) 2013 DTaP/Tdap/Td Vaccine (2 - Td or Tdap) 02/22/2022 02/23/2012 Covid-19 Vaccine ( season) 2025 09/10/2021, 09/12/2020, 08/22/2020 Influenza Vaccine (#1) 2025 , 07/02/2021, 06/20/2019, Additional history exists Regular Well Visit/Exam 18-64 10/14/2025 10/14/2024, 08/09/2023 Cervical Cancer Screening 08/09/2026 08/09/2023 Hepatitis B Screening Completed 12/23/2018 Pneumococcal vaccine <65 Aged Out 04/07/2019, 12/04 No longer eligible based on patient's age to complete this topic Procedures Procedure Name Priority Date/Time Associated Diagnosis Comments PAP AND HPV, REFLEX TO HPV GENOTYPES Routine 08/09/2023 4:53 PM HEAT TREATING OPERATOR Cervical cancer screening from Last 3 Months or Most Recently Relevant to Health Maintenance Results * Pap and HPV, reflex to HPV Genotypes (08/09/2023 4:53 PM HEAT TREATING OPERATOR) Clinical indication Comment [facility] - 01 Comment:NEGATIVE [...] not performed. Thin prep 08/09/2023 4:53 PM HEAT TREATING OPERATOR 08/09/2023 Narrative [facility] - 08/13/2023 4:10 PM HEAT TREATING OPERATOR Performed at: [address] [place] [address] [id number] [employer]lag Welding Machine Operator: Latasha Peterson MD, Phone: [phone] Performed at: 02 - [facility] [address] [place] [id number] [employer] Welding Machine Operator: Latasha Peterson MD, Phone: [phone] Specimen Comment: Source.............Cervix;Endocervix Specimen Comment: No. of containers..01 ThinPrep Vial us Diana Dyson MD LAB CYTOLOGY ORDERABLES Final Result [facility] 01 LAB [place] 02 from Last 3 Months or Most Recently Relevant to Health Maintenance Insurance [facility] CHO[facility] H[facility]/PPO Address: [address] [address] [place] [address] [facility] OPEN [facility]ESS [facility] H[facility]/PPO Address: [address] [place] [address] [facility] CHOICE [facility]US [facility] H[facility]/PPO Address: [address] [address] [place] [address] [facility] CHOICE [facility] H[facility]/PPO Address: [address] [address] [place] [address] [employer] OPEN ACCESS [facility] H[facility]/PPO Address: [address] [address] [facility] H[facility]/PPO Address: [address] [address] Advance Directives For more information, please contact: [phone] * Full Code (Latest Code Status on [...] 11:49 AM 03/26/2023 7:04 PM Care Teams Umbrella Tipper Relationship Specialty Start Date End Date Adry Linder MD PCP - General 08/28/19 Joe Judge MD Consulting Physician Urology 06/07/21 Rylan Conn MD [address] [facility] [phone] [place] [address] Surgeon Colon and Rectal Surgery 09/26/22 Luz Garner MD [address] [place] [address] Search Engineer Gastroenterology 09/26/22
--- OUTSIDE RECORDS SUMMARY | 2025-06-19 13:04 | XMS_ITS | Encounter Summary ---
Author Organization [facility] Address [address] [place] [address] Phone Care Team Providers Care Tool And Gauge Inspector Name Role Phone Adry Linder MD Primary Care Provider + Arlyn Sanches Primary Care Provider [phone] Adry Linder MD Primary Care Provider + Adry Linder MD Primary Care Provider + Adry Linder MD Primary Care Provider + Joe Judge MD Unavailable [phone] Rylan Conn MD Unavailable [phone] Luz Garner MD Unavailable [phone] Encounter Details Date Type Department Care Team (Late st Contact Info) Description 11/20/2018 Orders Only [facility] Scanning, Provider Social History Tobacco Use Types Packs/Day Years Used Date Smoking Tobacco: Never Comments Unknown Sex and Gender Information Value Date Recorded Sex Assigned at Not on file 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 Gender Identity Not on file Sexual [...] in this encounter Care Teams Tool And Gauge Inspector Relationship Specialty Start Date End Date Adry Linder MD PCP - General 01/22/15 12/02/18 Arlyn Sanches PA PCP - General 12/03/18 12/03/18 Adry Linder MD PCP - General 12/04/18 12/30/18 Adry Linder MD PCP - General 12/31/18 08/27/19 Adry Linder MD PCP - General 08/28/19 Joe Judge MD Consulting Physician Urology 06/07/21 Rylan Conn MD [address] [facility] [id number] [place] [address] Surgeon Colon and Rectal Surgery 09/26/22 Luz Garner MD [address] [place] [address] Commercial Service Technician Gastroenterology 09/26/22 documented as of this encounter
--- OUTSIDE RECORDS SUMMARY | 2025-06-19 13:04 | XMS_ITS | Clinical Summary ---
Author Organization [facility] Address [address] [place] [address] Care Team Providers Care Retail Sales Director Name Role Phone Unavailable Primary Care Provider Unavailabl e Source Comments [facility] [employer],non-owned Affiliates and Associated Physician Practices is amultiple site organization consisting of ambulatory clinics and hospital sitesin [place], [place], [place] and [place]. This disclosure is being madepursuant to the Care Everywhere program and may not contain all information available regarding this patient. 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
--- OUTSIDE RECORDS SUMMARY | 2025-06-19 13:04 | XMS_ITS | Encounter Summary ---
Author Organization [facility] Address [address] [place] [address] Care Team Providers Care Mutuel Cashier Name Role Phone Unavailable Primary Care Provider Unavailabl e Encounter Details Date Type Department Care Team (Late st Contact Info) Description 02/10/2025 Lab Requisition [facility] - DermPath Lab [address] [place] [address] Liset Riddle MD [address] 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 Gender Identity Not on file Sexual Orientation Not on file documented as of this encounter Plan of Treatment Not on file documented as of this encounter Procedures Procedure Name Priority Date/Time Associated Diagnosis Comments DERMATOPATHOLOGY Routine 02/10/2025 9:40 AM CDT documented in this encounter Results * DERMATOPATHOLOGY (02/10/2025 9:40 AM CDT) Case Report Dermatopathology Report Case: [id number] Authorizing Provider: Liset Riddle MD Collected: 02/10/2025 09:40 AM Ordering Location: [facility] Physician [facility] - Received: 02/11/2025 02:16 PM DermPath Lab [...] measuring 7x5x1 mm. Jar 0. 11:20 AM [facility] DERMATOPATHOLOGY LABORATORY Microscopic Description Specimen A. [...] appearance and matures with depth. 11:20 AM [facility] DERMATOPATHOLOGY LABORATORY Disclaimer An external and internal positive and negative controls are appropriate for the histochemical, immunohistochemical and immunofluorescence stain(s) in this case (if any), except where stated explicitly. The performance characteristics of the stain(s) cited in this report were developed and its performance characteristic determined by the Dermatopathology Laboratory at [facility], directed by Dr. Thierno Spears. These tests need not be, and therefore are not, approved by the [place] Food and Drug Administration. The tests are used for clinical purposes. Billing Codes Specimen Charges Stain Charges 92783 1 11:20 AM CDT DERMATOPATHOLOGY LABORATORY Embedded Images 11:20 AM T DERMATOPATHOLOGY LABORATORY Pathology/Cytolo gy TISSUE SPECIMEN FROM SKIN / Unknown 02/10/2025 9:40 AM CDT 02/11/2025 2:16 PM CDT us Liset Riddle MD LAB - PATHOLOGY/CYTOLOGY ORD ERABLES Final Result DERMATOPATHOLOGY LABORATORY [facility] - Department of Dermatology [address], [address] [phone] documented in this encounter Visit Diagnoses Not on filedocumented in this encounter
[2025-06-19 14:05] LABS: Free T3 3.59 pg/mL (2.32-6.09); Free T4 Free Thyroxine 1.26 ng/dL (0.78-2.19)
[2025-06-19 14:20] LABS: Thyroid Stimulating Hormone 0.897 uIU/mL (0.465-4.680)
[2025-06-19 14:45] LABS: Vitamin B12 941.0 pg/mL (239-931)
== END 2025-06-19 12:52 | disposition home or self-care (01) ==
LOC: ANHLAB 12:52
PROVIDERS: PCP Physician Assistant; Visit Provider Physician Assistant
DX: E06.3 Autoimmune thyroiditis (principal); K51.00 Ulcerative (chronic) pancolitis without complications
CPT/HCPCS: 36415; 82607; 84439; 84443; 84481